=== PATIENT | male | born 1955 | race Caucasian/White ===

== ENCOUNTER 2017-12-29 08:15 | Inpatient (IN) | payer MEDICAID, OTHER ==
--- NOTE | 2017-12-29 08:38 | EDPHY ---
H & P Time Seen by Provider: 12/29/17 08:28 HPI/ROS: CHIEF COMPLAINT: Right calf pain HISTORY OF PRESENT ILLNESS: 62-year-old male with protein C deficiency and prior venous and arterial thromboembolism presents with right calf pain. Onset of right calf pain 1 week ago. The pain is moderate and constant and increases with ambulation. Associated with swelling of the right calf. Similar to prior DVT. No chest pain or shortness of breath. He stopped taking his Coumadin 6 weeks ago because he lost his Medicaid insurance. He has not followed up with his primary care physician, Dr. Seth Ram, at [facility]. REVIEW OF SYSTEMS: Constitutional: No fever, no chills Eyes: No visual changes ENT: No sore throat Respiratory: No cough, no shortness of breath Cardiac: No chest pain Gastrointestinal: no vomiting, no abdominal pain Genitourinary: no dysuria Skin: No rash Neurological: No headache, no weakness Psychiatric: No depression Past Medical/Surgical History: DVT/PE Protein C deficiency Social History: Homeless PCP: Dr. Ram Smoking Status: Never smoked Physical Exam: General Appearance: Alert, pleasant Eyes: Pupils equal and round, no conjunctival pallor ENT, Mouth: Mucous membranes moist Neck: Normal inspection Respiratory: Lungs are clear to auscultation Cardiovascular: Regular rate and rhythm Gastrointestinal: Abdomen is soft and nontender Neurological: A&O, nonfocal, antalgic gait Skin: Warm and dry, no rash Extremities: Right calf tenderness and swelling, distal half of lower leg is erythematous, foot is erythematous and somewhat mottled, 1st toe is dusky, capillary refill is 3-4 seconds, delayed Vascular: Unable to palpate pulses in right foot Psychiatric: Mood and affect normal Constitutional: Initial Vital Signs Temperature (C) 36.4 C 12/29/17 08:20 Heart Rate 85 12/29/17 08:20 Respiratory Rate 17 12/29/17 08:20 Blood Pressure 152/90 H 12/29/17 08:20 O2 Sat (%) 95 12/29/17 08:20 O2 Delivery Mode Room Air Allergies/Adverse Reactions: No Known Allergies Allergy (Verified 12/29/17 08:19) Home Medications: Medication Instructions Recorded Ferrous Sulfate [Ferrous Sulf 325 325 mg PO DAILY 12/29/17 MG (*)] Glucosamine Sulfate [Glucosamine 500 mg PO DAILY 12/29/17 Sulfate 500 MG (*)] Herbals/Supplements -Info Only 1 ea PO DAILY 12/29/17 Latanoprost 0.005% [Xalatan 0.005% 1 drops RTEYE HS 12/29/17 (*)] Brodnax-3 Fatty Acids [Fish Oil 1000 1,000 mg PO DAILY 12/29/17 mg (*)] Medical Decision Making - Diagnostics Imaging Results: Extremity Venous Study 12/29/17 08:29 Impression: 1. Right peripheral vascular disease with superficial femoral artery occlusion mid thigh. Consider vascular surgery consult and CT runoff of the abdomen and lower extremities. 2. Positive deep venous thrombosis involving the right femoral veins from the mid thigh through the popliteal and calf veins. Findings and recommendations discussed with Emergency Department physician, Fay Glover at 0920 hours, 12/29/2017. Final report concurs with initial preliminary interpretation. Aorta with runnoff CTA: RLE-occlusion of SFA, popliteal artery, and near occlusion of common iliac artery ED Course/Re-evaluation: This patient is at high risk for venous and arterial occlusion, given history of multiple DVTs in the past and off anticoagulation. Physical exam is concerning for acute arterial occlusion, given lack of pedal pulses and delayed capillary refill. Will initiate w/u with stat ultrasound of the right lower extremity ordered. Ultrasound results per Dr. Lopes reveal a DVT in the mid thigh as well as an occlusion of the superficial femoral artery. Heparin per weight based protocol initiated. Lower extremity CTA ordered. Dr. Mariah East was consulted and will see the patient. 10:30am: Dr. Sapp, interventional radiologist, was consulted. CTA reveals arterial occlusion, pt will go to IR for thrombolysis. The hospitalist service was consulted for admission to the ICU. Critical care time by me exclusive of unbundled procedures 45 minutes. Time spent in direct contact with pt, ordering tests and interpretation of test results, consultations. Organ at risk: right leg Differential Diagnosis: includes though not limited to DVT, arterial thrombus, cellulitis, abscess, necrotizing fasciitis - Data Points Laboratory Results: Laboratory Results 12/29/17 09:15 12/29/17 09:15 Medications Given: Ferrous Sulfate (Ferrous Sulfate) 325 mg PO DAILY LAYLA Stop: 06/28/18 08:59 Last Admin: 12/30/17 08:07 Dose: Not Given Heparin Sodium (Porcine) (Heparin Injection) 0 unit IVP PRN PRN; Protocol PRN Reason: Bolus per protocol Stop: 06/28/18 20:15 Last Admin: 12/31/17 03:48 Dose: 1,425 units Hydromorphone HCl (Dilaudid) 0.4 mg IVP Q2H PRN PRN Reason: Pain, Severe Unable to Take PO Stop: 01/08/18 19:55 Last Admin: 12/31/17 06:24 Dose: 0.4 mg Sodium Chloride (Ns) 1,000 mls @ 75 mls/hr IV CONT LAYLA Stop: 06/27/18 19:14 Last Admin: 12/30/17 14:20 Dose: 1,000 mls Dexmedetomidine HCl 400 mcg/ (Sodium Chloride) 104 mls @ 0 mls/hr IV CONT LAYLA; Per Protocol PRN Reason: Protocol Stop: 06/28/18 07:59 Last Admin: 12/31/17 05:51 Dose: 104 mls Heparin Sodium (Porcine) (Heparin 50 Units/Ml (Premix)) 500 mls @ 0 mls/hr IV CONT LAYLA; Per Protocol PRN Reason: Protocol Stop: 06/28/18 19:59 Last Admin: 12/30/17 20:54 Dose: 500 mls Latanoprost (Xalatan 0.005%) 1 drops RTEYE HS LAYLA Stop: 06/27/18 20:59 Last Admin: 12/31/17 03:25 Dose: Not Given Morphine Sulfate (Morphine) 3 - 5 mg IVP Q3HRS PRN PRN Reason: Pain, Severe Unable to Take PO Stop: 01/08/18 13:18 Last Admin: 12/30/17 17:14 Dose: 4 mg Dqzps-5-Wdun Ethyl Esters (Fish Oil) 1,000 mg PO DAILY LAYLA Stop: 06/28/18 08:59 Last Admin: 12/30/17 08:07 Dose: Not Given Discontinued Medications Fentanyl (Sublimaze) 0 mcg IVP ONCALL PRN PRN Reason: Per provider during procedure Stop: 12/29/17 14:52 Last Admin: 12/29/17 16:14 Dose: 225 mcg Fentanyl (Sublimaze) 0 mcg IVP ONCALL PRN PRN Reason: Per provider during procedure Stop: 12/30/17 13:01 Last Admin: 12/30/17 12:32 Dose: 100 mcg Heparin Sodium (Porcine) (Heparin Injection) 0 unit IVP EDNOW ONE PRN Reason: Protocol Stop: 12/29/17 09:33 Last Admin: 12/29/17 09:51 Dose: 5,700 units Heparin Sodium (Porcine) (Heparin Injection) 0 unit IVP ONCALL PRN PRN Reason: Per provider during procedure Stop: 12/30/17 13:01 Last Admin: 12/30/17 12:02 Dose: 5,000 units Heparin Sodium (Porcine) (Heparin Sc Injection) 5,000 unit IV ONCE ONE Stop: 12/30/17 14:01 Last Admin: 12/30/17 12:02 Dose: 5,000 unit Heparin Sodium (Porcine) (Heparin Injection) 0 unit IVP ONCE ONE PRN Reason: Protocol Stop: 12/30/17 19:57 Last Admin: 12/30/17 22:04 Dose: Not Given Hydromorphone HCl (Dilaudid) 0.4 mg IVP Q4HRS PRN PRN Reason: Pain, Severe Unable to Take PO Stop: 01/08/18 17:46 Last Admin: 12/29/17 18:09 Dose: 0.4 mg Hydromorphone HCl (Dilaudid) 1 mg IVP ONCE ONE Stop: 12/30/17 14:01 Last Admin: 12/30/17 12:30 Dose: 1 mg Hydromorphone HCl (Dilaudid) 2 mg IVP ONCE ONE Stop: 12/30/17 17:46 Last Admin: 12/30/17 20:37 Dose: Not Given Heparin Sodium (Porcine) (Heparin 50 Units/Ml (Premix)) 500 mls @ 0 mls/hr IV EDNOW ONE; Per Protocol PRN Reason: Protocol Stop: 12/29/17 09:33 Last Admin: 12/29/17 09:53 Dose: 500 mls Alteplase, Recombinant 5 mg/ (Sodium Chloride) 100 mls @ 0 mls/hr IV ONCALL ONE ; As Directed PRN Reason: Protocol Stop: 12/29/17 15:01 Last Admin: 12/29/17 16:16 Dose: 100 mls Alteplase, Recombinant 5 mg/ (Sodium Chloride) 100 mls @ 0 mls/hr IV CONT LAYLA; Per Protocol PRN Reason: Protocol Stop: 06/27/18 16:14 Last Admin: 12/30/17 01:02 Dose: 100 mls Dexmedetomidine/Sodium Chloride (Precedex 4 Mcg/Ml 50 Ml (Premix)) 50 mls @ 0 mls/hr IV CONT LAYLA; Titrate PRN Reason: Protocol Stop: 06/27/18 18:59 Last Admin: 12/30/17 01:57 Dose: 50 mls Cefazolin Sodium (Cefazolin Syringe) 2 gm in 20 mls @ 200 mls/hr IVP ONCALL ONE Stop: 12/30/17 11:05 Last Admin: 12/30/17 10:40 Dose: 20 mls Midazolam HCl (Versed) 0 mg IVP ONCALL PRN PRN Reason: Per provider during procedure Stop: 12/29/17 14:52 Last Admin: 12/29/17 16:13 Dose: 4.5 mg Midazolam HCl (Versed) 1 mg IVP ONCE ONE Stop: 12/30/17 17:46 Last Admin: 12/30/17 20:37 Dose: Not Given Promethazine HCl (Phenergan) 12.5 mg IVP ONCE ONE Stop: 12/30/17 17:46 Last Admin: 12/30/17 20:38 Dose: Not Given Departure - Departure Disposition: [facility] Acute Clinical Impression: Arterial occlusion, lower extremity DVT (deep venous thrombosis) Qualifiers: Laterality: right Qualified Code(s): I82.401 - Acute embolism and thrombosis of unspecified deep veins of right lower extremity Condition: Fair
[2017-12-29] MEDS ORDERED: HEPARIN/DEXTROSE 500 ML IV ONE (09:32)
[2017-12-29] MEDS ORDERED: HEPARIN 10,000 UNIT/10 ML MDV (1,000 UNIT/ML) IVP ONE (09:32)
[2017-12-29 09:42] LABS: PLATELET COUNT 246 10^3/uL (150-400)
[2017-12-29 09:55] LABS: PROTIME(PATIENT) 13.4 SEC (12.0-15.0)
--- NOTE | 2017-12-29 10:08 | ASMTCMCOM ---
CM Note CM Note Notes: Patient is a very pleasant, homeless gentleman admitted for DVT of RLL. He has been off his Coumadin for over 6 weeks and has not followed up with his PCP, Dr. Seth Ram since July. Patient tells me that he lost his Medicaid at that time due to receiving social security income. Patient has enrolled in health care through [employer] and tells me that his insurance with [employer] starts today, December 29. Patient has lived in [place] for the past 23 years, 3 of which he has been homeless. He has some familiarity with the [facility] for homeless services, but has not completed the coordinated entry program. He tells me that he is not seeking "[place] [facility] [place]" services, but is interested in more information I have contacted [facility] and for Dr. Ram re patient's admission. I discussed the coordinated entry program with the patient, including CM services and other community resources. Pamphlets and contact information provided at this time. Date Signed: 12/29/2017 10:08 AM Electronically Signed By:Yennifer Laurent RN
[2017-12-29] MEDS ORDERED: IOPAMIDOL (ISOVUE 370) 100 ML BTL IV ONE (10:17)
--- NOTE | 2017-12-29 11:17 | ASMTLACE ---
LACE Acuity / Level of Answers: Yes Care: Did the patient have an inpatient admission? Comorbidities - select Answers: Other Notes: coagulopathy all that apply # of Emergency department Answers: 1-2 visits in the last 6 months Social determinants Answers: Homelessness (street, senior living) Score: 8 Date Signed: 12/29/2017 11:16 AM Electronically Signed By:Yennifer Laurent RN
--- NOTE | 2017-12-29 12:13 | CPEKG ---
Heart Rate: 78 RR Interval: 769 P-R Interval: 164 QRSD Interval: 102 QT Interval: 408 QTC Interval: 465 P Camden: 79 QRS Camden: 74 T Wave Camden: 44 EKG Severity - NORMAL ECG - EKG Impression: SINUS RHYTHM Electronically Signed By: Fay Glover 29-Dec-2017 15:28:49
--- NOTE | 2017-12-29 13:05 | PDPROPOC ---
Sedation Plan of Care ASA Classification: ASA 3 Planned drugs: fentanyl, midazolam Mallampati Score: Class 2 Mallampati Reference Image: Patient passed 3-3-2 rule?: Yes
[2017-12-29] MEDS ORDERED: HEPARIN 10,000 UNIT/10 ML MDV (1,000 UNIT/ML) IVP PRN (13:52)
[2017-12-29] MEDS ORDERED: GLUCAGON HCL 1 MG VIAL IVP PRN (13:52)
[2017-12-29] MEDS ORDERED: FLUMAZENIL 0.5 MG/5 ML MDV IVP PRN (13:52)
[2017-12-29] MEDS ORDERED: ALTEPLASE 2 MG VIAL IVP PRN (13:52)
[2017-12-29] MEDS ORDERED: fentaNYL 100 MCG/2 ML INJ IVP PRN (13:52)
[2017-12-29] MEDS ORDERED: MIDAZOLAM 2 MG/2 ML VIAL IVP PRN (13:52)
[2017-12-29] MEDS ORDERED: NALOXONE HCL 0.4 MG/ML INJ IVP PRN (13:52)
[2017-12-29] MEDS ORDERED: MEPERIDINE 25 MG/ML SYR IVP PRN (13:52)
[2017-12-29] MEDS ORDERED: PROTAMINE SULFATE 50 MG/5 ML VIAL IVP PRN (13:52)
[2017-12-29] MEDS ORDERED: FLUMAZENIL 0.5 MG/5 ML MDV IVP ONE (13:58)
[2017-12-29] MEDS ORDERED: NALOXONE HCL 0.4 MG/ML INJ ONE (13:58)
[2017-12-29] MEDS ORDERED: fentaNYL 100 MCG/2 ML INJ ONE ×2 (13:58→15:35)
[2017-12-29] MEDS ORDERED: MIDAZOLAM 2 MG/2 ML VIAL ONE ×2 (13:58→15:35)
[2017-12-29] MEDS ORDERED: HEPARIN/DEXTROSE 25,000 UNIT/500 ML BAG ONE (14:18)
[2017-12-29] MEDS ORDERED: IOPAMIDOL (ISOVUE-300) 100 ML BTL ONE ×2 (14:56→16:34)
[2017-12-29] MEDS ORDERED: LIDOCAINE 1% 300 MG/30 ML SDV ONE (14:57)
[2017-12-29] MEDS ORDERED: ALTEPLASE 5 MG in NS 100 ML IV ONE (15:00)
--- NOTE | 2017-12-29 15:53 | SOAPPROG ---
MILAN Progress Note Assessment/Plan: Assessment: 62-year-old male with 5 days of right leg pain. Patient has hypercoagulable syndrome with protein C deficiency. He stopped his Coumadin therapy because the he lost his access to Medicine Presently has absent pedal pulses with a cool but viable foot. His right great toe is bluer then the rest and painful/left pedal pulses are intact CT shows right iliac clot and total occlusion of SFA from the mid thigh all the way down with no runoff being visible He is an limb with reddened state and will need a urgent thrombolysis and if unsuccessful as surgical thrombectomy. Will start heparinization until thrombolysis initiated His small vessels are completely occluded at this time so surgical options are somewhat limited but he may need fasciotomies if his blood flow was restored Risks and options including limb loss have been fully discussed the patient who understands the critical situation Plan: IR consultation for urgent thrombolysis 12/29/17 15:48 Objective: Vital Signs Temp Pulse Resp BP Pulse Ox 37.1 C 85 20 163/96 H 98 12/29/17 13:53 12/29/17 13:57 12/29/17 13:57 12/29/17 14:22 12/29/17 14:22 12/28/17 12/29/17 12/30/17 05:59 05:59 05:59 Output Total 150 Balance -150 PT 13.4 SEC (12.0-15.0) 12/29/17 09:15 INR 1.00 (0.83-1.16) 12/29/17 09:15 ICD10 Worksheet Patient Problems: Problems Problem Status Onset DVT (deep venous thrombosis) Acute Elevated INR Acute Pulmonary emboli Acute
[2017-12-29] MEDS ORDERED: PROMETHAZINE HCL 25 MG/ML INJ IVP PRN (16:15)
[2017-12-29] MEDS ORDERED: HEPARIN/DEXTROSE 500 ML IV SCH (16:15)
[2017-12-29] MEDS ORDERED: ONDANSETRON 4 MG/2 ML VIAL IVP PRN ×2 (16:15→19:08)
--- NOTE | 2017-12-29 17:30 | PDRADPN ---
Radiology Procedure Note Date of Procedure: 12/29/17 Radiologist: Charles Sapp Anesthesia: IV Sedation Pre-op Diagnosis: Rt common iliac clot, occluded distal Rt SFA, pop and runoff Post-op Diagnosis: Same Indication: Rt common iliac clot, occluded distal Rt SFA, pop and runoff Procedure: Pelvic and RLE angio, initiation of catheter-directed thrombolysis Finding(s): See dictated report Inf/Abcess present in the surg proc area at time of surgery?: No Complications: No immediate
[2017-12-29] MEDS ORDERED: HYDROmorphONE/DILAUDID 2 MG/ML INJ IVP PRN (17:47)
[2017-12-29] MEDS ORDERED: NS 500 ML IV PRN (18:51)
[2017-12-29] MEDS ORDERED: DEXMEDETOMIDINE/NS 4MCG/ML 50 ML BTL IV ONE (18:55)
--- NOTE | 2017-12-29 19:01 | PDGENHP ---
History and Physical History and Physical: CC: Right leg pain Note that I have seen this patient after he has come to the ICU from the Interventional Radiology laboratory where he has had catheter angiography of the right leg and is receiving tPA infusion with mechanical intervention ongoing. HISTORY: This patient with history of repeated thromboembolic episodes and history of protein C deficiency says he ran out of Coumadin a month or 2 ago and was unable to refill his prescription because of insurance issues. He is a homeless man and was in the middle of switching insurance so programs. He comes in today complaining of acute pain in his distal right leg and foot. There is no fever, no injury, no bleeding, no shortness of breath, no chest pain , no stroke-like symptoms, no palpitations. He says he was diagnosed with protein C deficiency at [facility] after his 1st DVT of the leg in 1995. He has been on anticoagulant since then with a couple of interruptions long way but has had multiple DVTs and PEs and 1 stroke. It is reported in records here that he has some cognitive deficit related to his stroke but he does not mention any specific deficit he is aware of. ROS: A comprehensive 10 system review revealed no other significant findings PAST MEDICAL HISTORY: Protein C deficiency Recurrent DVTs and PEs Stroke without any focal deficits Diverticulitis Alcohol abuse FAMILY MEDICAL HISTORY: He is unaware of specific family history SOCIAL HISTORY: Homeless living here [place] Denies tobacco or street drug use Admits to 3 beers per day but not on a daily basis sees physicians at [facility] [place] [facility] It sounds like he may have just gotten new insurance that started perhaps this month but I am unable to get a clear picture of the details from him at this time MEDICATIONS: The patients list has been reconciled by our clinical pharmacist in the EMR. I have reviewed the list and ordered appropriate medicines. PHYSICAL EXAMINATION: Vital Signs: Mildly hypertensive otherwise normal without fever Traveling Electrician: Sinus rhythm Examination: General: alert, severely anxious and agitated and looking quite uncomfortable although his response to pain seems quite remarkably out of proportion to his clinical syndrome in terms of yelling thrashing about in the bed despite repeated efforts on the part of the nursing staff and myself to get him to lie still as he has bilateral central lines in left and right groin with infusing tPA at this point and the intra-arterial mechanical device operating. Certainly not in line with what I am used to seeing from patient's who are having ischemic leg and receiving the procedures and treatments he is receiving. He mentions migrating sites of severe pain suggestive of possible reperfusion related pain Skin: Overall warm, dry, good color, no rash HEENT: normal Neck: no mass or jvd Resps: relaxed Lungs: clear breath sounds Heart: regular, no murmur Abdomen: soft, nondistended, nontender, +BS, no mass Upper Extremities: normal Lower Extremities: Currently has bilateral arterial lines in at the groins with no evidence of bleeding or complication at either site at the moment. His right leg below the knee is clearly ischemic but the color and temperature are improving compared to what I heard initially described in what the nurses saw earlier in the day. No mass or fluctuance or palpable fluid collection or evidence of bruising or bleeding or focal tenderness at the groin sites. No Bleeding or bruising Neurologic: normal speech/language, normal liquid sugar fortifier, no focal weakness with legs not tested for strength but he is moving both of them IV site: looks normal LABORATORY DATA: Unremarkable initial CBC, Chem panel, coagulation studies other than that his INR is normal RADIOLOGY STUDIES: I reviewed images from the patient's CT angiogram and ultrasound studies, he has a acute occlusion of the right SFA and also DVT in the right leg 12 LEAD EKG: Sinus rhythm with no acute ischemic or other concerning abnormalities ASSESSMENT: # acute ischemic right leg with acute right SFA occlusion # acute DVT of right leg # off anticoagulation with chronic protein C deficiency, apparently due to issues with insurance though the details of this are uncertain to me. At the moment hard to understand what his actual compliance abilities are # prior history of multiple DVTs and PEs in 1 stroke # homelessness # alcohol abuse currently stated by patient as 3 beers per day not on a daily basis PLANS: -continue thrombolytic infusion at this time -continue mechanical intra-arterial therapy at this time -further management of these treatments per Dr. East and Dr. Sapp -Pain Management: At this point the patient is not tolerating his discomfort well at all and in fact we are unable to keep him from writhing in the bed which is quite dangerous, so in addition to the currently administered narcotic and benzodiazepine medications I have ordered a Precedex drip. This is necessary to prevent arterial injury in both legs as well as dangers hemorrhage. -this is a month able to really get a convincing history of his alcohol use will give him some thiamin and will continue watch for any potential signs of alcohol withdrawal though it sounds like this may not be a problem -continue ICU care -monitor and treat blood pressure aggressively -follow renal function closely -will need to get him back on anticoagulation once we are done with all of his procedures and make sure that he has appropriate arrangements for getting his medication and his INR monitoring, and he will need to be bridged with a heparin to get his INR up -social work consult will be necessary I have reviewed the patient's case in detail with Dr. Bandar East and Charles Sapp I have reviewed the patient's past medical records as part of this assessment, including previous hospital admission records from this facility
[2017-12-29] MEDS ORDERED: ACETAMINOPHEN 325 MG TAB PO PRN (19:08)
[2017-12-29] MEDS ORDERED: ONDANSETRON DISINTEGRATING 4 MG TAB PO PRN (19:08)
[2017-12-29] MEDS ORDERED: NS 1,000 ML IV SCH (19:15)
--- NOTE | 2017-12-29 19:44 | PDMN ---
Medical Necessity Medical necessity: Patient meets inpatient criteria per physician note and MCG M -350 DVT of Lower Extremities (catheter-directed thrombolysis required for acute occlusion of R SFA and R common iliac clot; history of mult. thromboembolic episodes and protein C deficiency; unable to refill Coumadin in last 1-2 mos; anticipated LOS > 2 midnights for current therapy and Heparin IV bridge to p.o anticoagulation, ongoing ICU care including current Precedex IV gtt.)
[2017-12-29] MEDS: DEXMEDETOMIDINE IN 0.9 % NACL 50 ML IV SCH ×2 (20:03→21:30)
[2017-12-29] MEDS: HYDROmorphONE/DILAUDID 2 MG/ML INJ IVP PRN (20:04)
[2017-12-29] MEDS: LATANOPROST 0.005% 2.5 ML OPHT DROPS RTEYE SCH (23:00)
[2017-12-30] MEDS: ALTEPLASE 5 MG in NS 100 ML IV SCH ×2 (00:54→01:02)
[2017-12-30] MEDS: DEXMEDETOMIDINE IN 0.9 % NACL 50 ML IV SCH (01:57)
[2017-12-30 03:00] LABS: PLATELET COUNT 165 10^3/uL (150-400)
[2017-12-30] MEDS: HYDROmorphONE/DILAUDID 2 MG/ML INJ IVP PRN ×5 (03:01→16:27)
[2017-12-30] MEDS: FERROUS SULFATE 325 MG TAB PO SCH (08:07)
[2017-12-30] MEDS: OMEGA-3 FATTY ACIDS 1,000 MG CAP PO SCH (08:07)
[2017-12-30] MEDS: DEXMEDETOMIDINE HCL 400 MCG in NS 100 ML IV SCH ×2 (09:14→23:36)
--- NOTE | 2017-12-30 09:37 | HOSPPROG ---
Hospitalist Progress Note Assessment/Plan: DIAGNOSES: -acute ischemia to the right leg and foot with acute SFA occlusion -failure to resolve occlusion in ischemia with tPA infusion and EKOS, unable to continue tPA due to fibrinogen depletion -acute DVT of right leg -market agitation requiring significant sedation to protect his intra-arterial access -noncompliance with Coumadin therapy At this point he has failed attempt to manage this with tPA and EKOS. His foot is still cold and blue and he will require other measures to trying get flow back. We reviewed his case with Dr. Ocasio and she is going to take him back to the interventional lab to see if she is able do any mechanical thrombectomy. He will probably require a trip to the operating room to attempt to open outflow surgically. Will see how angiograms look after attempted IR thrombectomy. The patient through the night and again this morning is fairly agitated despite being very oriented. Is unclear to me if this is his usual manner of responding to a situation or if there is some other issue causing his agitation. He seems to have very reasonable pain control right now. He does seem to understand fairly clearly what his diagnosis and his treatment plans are. He may be quite in fear of his medical illness which would be appropriate. We have tried to be is reassuring with him as we can about his situation. Either way we are unable to get him to lie still very well and he did require Precedex drip overnight for protection of his artery sites, in addition to the narcotic an Ativan he was being given to try and manage his pain and anxiety. At this point we have him more awake and a he still is unable to comply with lying still. PLANS: -back to Interventional Radiology lab today for attempted mechanical thrombectomy, with angiography -suspect he will need to go to the OR today to try an open flow to save his foot -sedation with Precedex as needed to protect his arterial sites -continue pain management -eventually will need a lot of help from social workers to and pharmacy staff to be sure that we have him set up with ongoing supply of Coumadin, and with compliance of taking that and getting his INRs tested SUBJECTIVE: Still with quite a bit of pain in his right foot No other acute symptoms OBJECTIVE Vitals reviewed: Stable without fever Metal Sprayer, my review: Sinus rhythm Exam: alert oriented anxious and agitated skin warm dry color ok resps not labored lungs clear BSs heart regular abd soft nondistended nontender, bowel sounds present limbs he has much better warmth and color of the right leg down to the mid calf , but from the mid calf down to the tip of the toes he is cold blue and pulseless with decreased sensation iv site ok Laboratory data: Fibrinogen has remained at 60 or less through the night and morning Only a minimal drop in hemoglobin Other lab stable this morning Objective: Vital Signs Temp Pulse Resp BP Pulse Ox 36.7 C 53 L 14 105/68 100 12/29/17 17:01 12/30/17 08:00 12/30/17 08:00 12/30/17 08:00 12/30/17 08:00 Laboratory Results 12/30/17 02:56 12/30/17 02:56 12/29/17 12/30/17 12/31/17 06:59 06:59 06:59 Intake Total 2954 Output Total 950 Balance 2003 PT 13.4 SEC (12.0-15.0) 12/29/17 09:15 INR 1.00 (0.83-1.16) 12/29/17 09:15 ICD10 Worksheet Patient Problems: Problems Problem Status Onset DVT (deep venous thrombosis) Acute Elevated INR Acute Pulmonary emboli Acute
[2017-12-30] MEDS ORDERED: fentaNYL 100 MCG/2 ML INJ ONE (10:15)
[2017-12-30] MEDS ORDERED: ceFAZolin 2 GM/SWFI 20 ML SYR IVP ONE ×2 (10:35→10:47)
[2017-12-30] MEDS ORDERED: IOPAMIDOL (ISOVUE-300) 100 ML BTL ONE ×6 (10:53→18:59)
[2017-12-30] MEDS ORDERED: ceFAZolin 2 GM/SWFI 2 GM/20 ML SYR IVP ONE (11:00)
--- NOTE | 2017-12-30 11:54 | ASMTCMCOM ---
CM Note CM Note Notes: Patient's foot is worse today so he is going for a mechanical evacutation but will most likely need to go back to the OR per Dr. East. Dr. Ceja requests assist with making sure patient has an ongoing supply of coumadin, getting his INR's tested and having a Dr he is following up with at d/c. Patient has been agitated and anxious most likely due to being in fear of his medical illness. Plan to meet with patient when he is more medically stable to begin making these d/c arrangements. CM will follow. Date Signed: 12/30/2017 11:53 AM Electronically Signed By:Rosa Mar LCSW
[2017-12-30] MEDS ORDERED: ALTEPLASE 2 MG VIAL IVP PRN (11:58)
[2017-12-30] MEDS ORDERED: fentaNYL 100 MCG/2 ML INJ IVP PRN (11:58)
[2017-12-30] MEDS ORDERED: GLUCAGON HCL 1 MG VIAL IVP PRN (11:58)
[2017-12-30] MEDS ORDERED: NALOXONE HCL 0.4 MG/ML INJ IVP PRN (11:58)
[2017-12-30] MEDS ORDERED: MEPERIDINE 25 MG/ML SYR IVP PRN (11:58)
[2017-12-30] MEDS ORDERED: HEPARIN 10,000 UNIT/10 ML MDV (1,000 UNIT/ML) IVP PRN (11:58)
[2017-12-30] MEDS ORDERED: PROTAMINE SULFATE 50 MG/5 ML VIAL IVP PRN (11:58)
[2017-12-30] MEDS ORDERED: FLUMAZENIL 0.5 MG/5 ML MDV IVP PRN (11:58)
[2017-12-30] MEDS ORDERED: MIDAZOLAM 2 MG/2 ML VIAL IVP PRN (11:58)
[2017-12-30] MEDS ORDERED: HEPARIN 10,000 UNIT/10 ML MDV (1,000 UNIT/ML) ONE (11:59)
--- NOTE | 2017-12-30 13:35 | PDRADPN ---
Radiology Procedure Note Date of Procedure: 12/30/17 Radiologist: Yuly Ocasio Anesthesia: IV Sedation Pre-op Diagnosis: RLE CLOT Post-op Diagnosis: SAME Indication: THREATENED LIMB Procedure: MECHANICAL CLOT DEBULKING; IDENTITY MANAGEMENT DEVELOPER, STENT, TPA LYSIS Finding(s): STENTED RT CIV FOR CHRONIC SCAR; IDENTITY MANAGEMENT DEVELOPER RT SFA FOR PLAQUE; MECHANICAL CLOT SUCTIONING THROUGHOUT SFA, POP, AND PT. NOW WITH ANTEGRADE RUNOFF VIA DP AND MOST OF PT. RESIDUAL SHORT SEGMENT CLOT AT ANKLE PT. TPA LYSIS TO CONTINUE. Inf/Abcess present in the surg proc area at time of surgery?: No EBL: 100-500 (400CC VIA PENUMBRA DECLOT SUCTIONING DEVICE) Complications: NONE
[2017-12-30] MEDS ORDERED: ALTEPLASE 5 MG in NS 100 ML IV SCH (13:45)
[2017-12-30] MEDS ORDERED: HEPARIN/DEXTROSE 500 ML IV SCH (13:45)
[2017-12-30] MEDS ORDERED: HEPARIN 5,000 UNIT/0.5 ML SYR IV ONE (14:00)
[2017-12-30] MEDS ORDERED: HYDROmorphONE/DILAUDID 1 MG/ML INJ IVP ONE (14:00)
[2017-12-30] MEDS ORDERED: PROMETHAZINE HCL 25 MG/ML INJ IVP ONE (17:45)
[2017-12-30] MEDS ORDERED: MIDAZOLAM 2 MG/2 ML VIAL IVP ONE (17:45)
[2017-12-30] MEDS ORDERED: HYDROmorphONE/DILAUDID 2 MG/ML INJ IVP ONE (17:45)
[2017-12-30] MEDS ORDERED: LIDOCAINE 1% 300 MG/30 ML SDV ONE (18:03)
[2017-12-30] MEDS ORDERED: MIDAZOLAM 2 MG/2 ML VIAL ONE ×2 (18:04→18:16)
--- NOTE | 2017-12-30 18:08 | SOAPPROG ---
MILAN Progress Note Assessment/Plan: Assessment: 62-year-old male with 5 days of right leg pain. Patient has hypercoagulable syndrome with protein C deficiency. He stopped his Coumadin therapy because the he lost his access to Medicine Presently has absent pedal pulses with a cool but viable foot. His right great toe is bluer then the rest and painful/left pedal pulses are intact CT shows right iliac clot and total occlusion of SFA from the mid thigh all the way down with no runoff being visible He is an limb with reddened state and will need a urgent thrombolysis and if unsuccessful as surgical thrombectomy. Will start heparinization until thrombolysis initiated His small vessels are completely occluded at this time so surgical options are somewhat limited but he may need fasciotomies if his blood flow was restored Risks and options including limb loss have been fully discussed the patient who understands the critical situation Plan: IR consultation for urgent thrombolysis 12/29/17 15:48 12/30/17 18:07 PATIENT STILL UNDERGOING THROMBOLYSIS BUT HAS HAD A DRAMATIC IMPROVEMENT IN THE BLOOD FLOW TO THE LEG INCLUDING ILIAC STENT. SFA IS OPENED UP THROUGH THE POPLITEAL WITH A SINGLE-VESSEL RUNOFF AND THE FOOT IS MUCH WARMER. WILL CONTINUE HEPARIN AND THROMBOLYSIS AND HOPES THAT WE CAN SAVE HIS LEG AND TOES. HE HAD RATHER POOR RESULTS FROM TPA INFUSION OVER NIGHT WITH BIG DROP IN HIS FIBRINOGEN LEVEL Objective: Vital Signs Temp Pulse Resp BP Pulse Ox 36.7 C 71 25 H 145/92 H 98 12/30/17 14:00 12/30/17 17:04 12/30/17 17:04 12/30/17 17:55 12/30/17 17:55 Laboratory Results 12/30/17 02:56 12/30/17 02:56 12/29/17 12/30/17 12/31/17 05:59 05:59 05:59 Intake Total 2954 Output Total 950 Balance 2003 PT 13.4 SEC (12.0-15.0) 12/29/17 09:15 INR 1.00 (0.83-1.16) 12/29/17 09:15 ICD10 Worksheet Patient Problems: Problems Problem Status Onset DVT (deep venous thrombosis) Acute Elevated INR Acute Pulmonary emboli Acute
[2017-12-30] MEDS ORDERED: HEPARIN 10,000 UNIT/10 ML MDV (1,000 UNIT/ML) IVP ONE (19:56)
--- NOTE | 2017-12-30 20:00 | PDRADPN ---
Radiology Procedure Note Date of Procedure: 12/30/17 Radiologist: Yuly Ocasio Anesthesia: IV Sedation Pre-op Diagnosis: RLE LIMB ISCHEMIA Post-op Diagnosis: SAME Indication: CONTINUED TPA CHECK Procedure: ANGIOGRAM, SFA STENT, DOCTOR ASSISTANT Finding(s): VERY SLOW RUNOFF. PATIENT TO POP ARTERY Inf/Abcess present in the surg proc area at time of surgery?: No Complications: RT GROIN HEMATOMA. CLOSURE DEVICE DID NOT WORK.
[2017-12-30 20:41] LABS: PLATELET COUNT 146 10^3/uL (150-400)
[2017-12-30 20:52] LABS: INR 1.46 (0.83-1.16); PROTIME(PATIENT) 17.9 SEC (12.0-15.0)
[2017-12-30] MEDS: HEPARIN/DEXTROSE 500 ML IV SCH (20:54)
[2017-12-31] MEDS: LATANOPROST 0.005% 2.5 ML OPHT DROPS RTEYE SCH ×2 (03:25→20:12)
[2017-12-31] MEDS: HEPARIN 10,000 UNIT/10 ML MDV (1,000 UNIT/ML) IVP PRN (03:48)
[2017-12-31] MEDS: DEXMEDETOMIDINE HCL 400 MCG in NS 100 ML IV SCH (05:51)
[2017-12-31] MEDS: HYDROmorphONE/DILAUDID 2 MG/ML INJ IVP PRN ×5 (06:24→23:15)
--- NOTE | 2017-12-31 09:01 | SOAPPROG ---
SOAP Progress Note Assessment/Plan: Assessment/Plan: 62yo M c hypercoag c acute RLE ischemia - per report, lysis able to open to popliteal which is palpable. No appreciable distal runoff to this - comparing exam this AM to last night, the R lower leg is actually warmer than it was, still no appreciable flow in the foot but feels warmer and motor appears better as well. Has palp popliteal pulse on R - fem stop in place, will take down this AM. - cont full heparinization. - no bypass targets in RLE currently. 12/31/17 08:59 Subjective: denies RLE pain. Objective: Vital Signs Temp Pulse Resp BP Pulse Ox 36.7 C 60 17 105/47 L 100 12/30/17 14:00 12/31/17 06:00 12/31/17 06:00 12/31/17 06:00 12/31/17 06:00 Laboratory Results 12/31/17 04:00 12/31/17 04:00 12/30/17 12/31/17 01/01/18 05:59 05:59 05:59 Intake Total 2954 3678 Output Total 950 1500 Balance 2003 2178 PT 17.9 SEC (12.0-15.0) H 12/30/17 20:30 INR 1.46 (0.83-1.16) H 12/30/17 20:30 ICD10 Worksheet Patient Problems: Problems Problem Status Onset Arterial occlusion, lower extremity Acute DVT (deep venous thrombosis) Acute Elevated INR Acute Pulmonary emboli Acute
--- NOTE | 2017-12-31 10:00 | HOSPPROG ---
Hospitalist Progress Note Assessment/Plan: # acute ischemia to the right leg and foot with acute SFA occlusion - failure to resolve occlusion with tPA infusion and EKOS, unable to continue tPA due to fibrinogen depletion -s/p stent by IR yesterday - foot now warm, but still no DP or PT pulse by doppler -cont heparin -plan to d/c on plavix # acute DVT of right leg -heparin as above # agitation - required significant sedation to protect his intra-arterial access -wean precedex # noncompliance with Coumadin therapy Full code Subjective: Pt doing ok, c/o pain in RLE. No CP or SOB. Taking po. Objective: Vital Signs Temp Pulse Resp BP Pulse Ox 36.7 C 60 17 105/47 L 100 12/30/17 14:00 12/31/17 06:00 12/31/17 06:00 12/31/17 06:00 12/31/17 06:00 Laboratory Results 12/31/17 04:00 12/31/17 04:00 12/30/17 12/31/17 01/01/18 05:59 05:59 05:59 Intake Total 2954 3678 Output Total 950 1500 Balance 2003 2178 PT 17.9 SEC (12.0-15.0) H 12/30/17 20:30 INR 1.46 (0.83-1.16) H 12/30/17 20:30 - Physical Exam Constitutional: no apparent distress Eyes: PERRL Ears, Nose, Mouth, Throat: moist mucous membranes Cardiovascular: regular rate and rhythym Respiratory: no respiratory distress Gastrointestinal: normoactive bowel sounds, soft, non-tender abdomen Skin: warm Musculoskeletal: full muscle strength Neurologic: AAOx3 Psychiatric: interacting appropriately ICD10 Worksheet Patient Problems: Problems Problem Status Onset Arterial occlusion, lower extremity Acute DVT (deep venous thrombosis) Acute Elevated INR Acute Pulmonary emboli Acute
--- NOTE | 2017-12-31 15:32 | SOAPPROG ---
SOAP Progress Note Assessment/Plan: Assessment: RT foot better than yesterday, but cold toes. RT femoral and pop pulses stable. LT femoral sheath removed. Plan: 1. Fem stop to LT groin today. bed rest today. 2. Restarting heparin at wt based rate. 3. Foot management otherwise per surgery. 4. Starting plavix tomorrow for stents. Need to be D/Vlad with 90 day plavix. Would recommend that patient stays on at least full ASA for life if not plavix for stents. 12/31/17 15:30 Subjective: Much more awake today. No complaints. Objective: Vital Signs Temp Pulse Resp BP Pulse Ox 36.7 C 62 14 115/69 100 12/31/17 12:00 12/31/17 12:00 12/31/17 12:00 12/31/17 12:00 12/31/17 12:00 Laboratory Results 12/31/17 04:00 12/31/17 04:00 12/30/17 12/31/17 01/01/18 05:59 05:59 05:59 Intake Total 2954 3678 Output Total 950 1500 Balance 2003 2178 PT 17.9 SEC (12.0-15.0) H 12/30/17 20:30 INR 1.46 (0.83-1.16) H 12/30/17 20:30 RT groin with bruising, no significant bulging hematoma. LT groin sheath removed and fem stop applied. RT foot dorsal aspect proximally with better perfusion than yesterday. Toes cold. ICD10 Worksheet Patient Problems: Problems Problem Status Onset Arterial occlusion, lower extremity Acute DVT (deep venous thrombosis) Acute Elevated INR Acute Pulmonary emboli Acute
[2017-12-31] MEDS ORDERED: LIDOCAINE 1% 300 MG/30 ML SDV ONE (15:34)
--- NOTE | 2017-12-31 16:18 | GCON ---
[f rep st] CONSULTATION PULMONARY/CRITICAL CARE CONSULTATION DATE OF CONSULTATION: 12/31/2017 REFERRING PHYSICIAN: Xiao Nguyen MD REASON FOR REFERRAL: Evaluation and management of DVT. HISTORY: The patient is a 62-year-old male who has a history of protein C deficiency, who recently s topped taking his Coumadin. He was admitted 2 days ago with acute pain in his distal right leg and f oot. He denies any recent injury to the leg. He came in and was found to have a superficial femoral artery occlusion in the mid thigh, as well as a DVT in the right femoral veins extending down to the calf veins. He was taken to the interventional suite, where a left femoral access was obtained and a lysis catheter was placed in the right femoral artery. Unfortunately, the patient developed a low fibrinogen level and the tPA infusion had to be stopped without resolution of the arterial thrombosis . Subsequently, the patient underwent catheter embolization and stent placement. Patency of the pop liteal artery was obtained, but there was slow distal runoff. The patient currently reports that he has pain that migrates around his right foot, but not above that. He denies any other symptoms. PAST MEDICAL HISTORY: 1. Protein C deficiency; this was diagnosed at the [facility] after his 1st DVT in 1995. He has kearns d a couple of interruptions and anticoagulation, and has had multiple DVTs, PEs, and a stroke. He st opped Coumadin about 2 months ago. 2. Diverticulitis. 3. History of alcohol abuse. MEDICATIONS: At the time of admission include fish oil, iron. ALLERGIES: None. SOCIAL HISTORY: The patient is homeless, lives in [place]. He drinks about 3 beers a day, but not e very day. He denies tobacco. FAMILY HISTORY: Unremarkable. REVIEW OF SYSTEMS: A 10-point review of systems adds nothing to the History of Present Illness. PHYSICAL EXAMINATION: GENERAL: The patient is awake, alert, in no acute distress, lying in bed. CONCHITA SIGNS: Blood pressure is 115/69, with heart rate of 62, he is afebrile, oxygen saturations are 1 00% on 1 L. HEENT: Normocephalic and atraumatic, no icterus. NECK: No adenopathy. Trachea is mid line. CHEST: Clear to auscultation. CARDIAC: Regular rate and rhythm without murmur. ABDOMEN: S oft, nontender. Bowel sounds are present. EXTREMITIES: His right foot has pallor and is somewhat c ool. There are no palpable pulses. He has some darkness in the tips of his toes, but no addie necro sis. He is able to move his toes. The left foot has good pulses. He has a Femstop on both groins. NEURO: The patient is awake and oriented x3. No gross motor or sensory deficits. LABORATORY: Chemistry group is unremarkable. Hemoglobin is 11.0. Heparin activity level is 0.35. ASSESSMENT: 1. Right deep venous thrombosis. The patient has a fairly extensive deep venous thrombosis. His le g is more threatened by an arterial thrombosis in the same leg. He has been treated with intra-arter ial tPA, which likely will have some mild systemic effect on the deep venous thrombosis, and also he is now on heparin, which should be adequate therapy for this. Further therapy for the patient's teressa rial thrombosis and protein-C deficiency should be adequate to treat the deep venous thrombosis. 2. Protein C deficiency. This was previously diagnosed. 3. Arterial thrombosis of this superficial femoral artery. This has been treated with tPA and then with embolectomy and stenting. He has improved flow to the leg, although the foot remains ischemic. 4. History of alcohol use. RECOMMENDATIONS: 1. Continue heparin. 2. The patient can be transitioned to Coumadin or an oral anticoagulant agent once he is more stable . He will need ongoing evaluation for his foot to determine viability. /[id number]/MODL
[2017-12-31] MEDS: OMEGA-3 FATTY ACIDS 1,000 MG CAP PO SCH (16:43)
[2017-12-31] MEDS: FERROUS SULFATE 325 MG TAB PO SCH (16:43)
[2018-01-01] MEDS: HYDROmorphONE/DILAUDID 2 MG/ML INJ IVP PRN ×2 (05:50→09:31)
[2018-01-01] MEDS: DEXMEDETOMIDINE HCL 400 MCG in NS 100 ML IV SCH (05:51)
[2018-01-01] MEDS: OMEGA-3 FATTY ACIDS 1,000 MG CAP PO SCH (09:31)
[2018-01-01] MEDS: FERROUS SULFATE 325 MG TAB PO SCH (09:31)
[2018-01-01] MEDS: HEPARIN/DEXTROSE 500 ML IV SCH (11:06)
[2018-01-01] MEDS ORDERED: BISACODYL 10 MG SUPP PR PRN (12:04)
[2018-01-01] MEDS ORDERED: MAGNESIUM HYDROXIDE 30 ML UDCUP PO PRN (12:04)
[2018-01-01] MEDS ORDERED: LACTULOSE 20 GM/30 ML UDCUP PO PRN (12:04)
[2018-01-01] MEDS: oxyCODONE IR 5 MG TAB PO PRN ×3 (12:44→20:49)
--- NOTE | 2018-01-01 12:59 | HOSPPROG ---
Hospitalist Progress Note Assessment/Plan: # acute ischemia to the right leg and foot with acute SFA occlusion - failure to resolve occlusion with tPA infusion and EKOS, unable to continue tPA due to fibrinogen depletion -s/p stent by IR / - foot remains sub-optimally perfused with mottling and dusky toes today -cont heparin -discussed with Dr. East, will likely need bypass surgery this hospitalization and eventually d/c with anti-coagulation (?coumadin vs eliquis) plus plavix -pain control # acute DVT of right leg -heparin as above # agitation - required significant sedation to protect his intra-arterial access -wean precedex # noncompliance with Coumadin therapy Full code Dispo - cont inpt / ICU, ADD uncertain Subjective: Pt doing ok. Needs better pain control. Wants definitive bypass surgery. Objective: Vital Signs Temp Pulse Resp BP Pulse Ox 36.9 C 81 19 125/84 H 100 01/01/18 08:00 01/01/18 10:00 01/01/18 10:00 01/01/18 10:00 01/01/18 10:00 Laboratory Results 01/01/18 03:30 12/31/17 04:00 12/31/17 01/01/18 01/02/18 05:59 05:59 05:59 Intake Total 3678 3439 Output Total 1500 4450 Balance 2178 -1011 PT 17.9 SEC (12.0-15.0) H 12/30/17 20:30 INR 1.46 (0.83-1.16) H 12/30/17 20:30 - Physical Exam Constitutional: no apparent distress Eyes: PERRL Ears, Nose, Mouth, Throat: moist mucous membranes Cardiovascular: regular rate and rhythym Respiratory: no respiratory distress Gastrointestinal: normoactive bowel sounds, soft, non-tender abdomen Skin: other (RLE with mottling of foot and dusky toes, though mostly warm to touch) Neurologic: AAOx3 Psychiatric: interacting appropriately ICD10 Worksheet Patient Problems: Problems Problem Status Onset Arterial occlusion, lower extremity Acute DVT (deep venous thrombosis) Acute Elevated INR Acute Pulmonary emboli Acute
--- NOTE | 2018-01-01 14:26 | GCON ---
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 The patient has a hypercoagulable history with protein C abnormality. He has been on Coumadin but ran out and did not renew his Coumadin. Present symptoms have been present for over 5 days. His foot is cool but still viable but creates a significant amount of pain. His r ight great toe seems to be somewhat blue as well. The CTA was done which shows a significant right i liac thrombus or embolus and then occlusion of the SFA and all the runoff in the leg from the midthig h down with some collateral circulation. He had a previous angiogram 3 years ago, which did not reve al the iliac lesions, but the runoff was inadequate to evaluate the infrapopliteal circulation on dilan t angiogram. PAST MEDICAL HISTORY: Includes multiple DVT episodes and a pulmonary embolus. He has a protein-C de ficiency. He has had a previous CVA with no focal deficits. He does drink, and he has had diverticu litis. FAMILY HISTORY: Noncontributory. REVIEW OF SYSTEMS: No other major problems on a full 10-point review of systems. Specifically, he d oes not smoke currently. PHYSICAL EXAMINATION: GENERAL: An alert, talkative 62-year-old male who is in some discomfort. HEA D AND NECK: No icterus. No adenopathy. No oral lesions. No bruits. Neck is supple, nontender, wi thout thyromegaly. CHEST: Clear and symmetric. COR: Regular rhythm without murmurs. ABDOMEN: So ft and nontender without bruits or hernias. GENITALIA: Normal. EXTREMITIES: Good pedal pulses on the left, absent pedal pulses on the right ,with coolness to the right foot and very sluggish capilla ry filling. He has motor and sensation intact in that foot. His popliteal pulse is also absent, but he does have a weak femoral pulse, particularly compared to the left side. NEUROLOGIC: Physiologic . SKIN: No rashes or lesions or skin breakdown. IMPRESSION: Subacute ischemia of the right leg which is threatened. I do not know if this is emboli c in nature or if this is atherosclerotic plaques. However, his left side with circulation, and his vessels overall look quite nice except for the occlusion. It should be noted that he also has a DVT on his ultrasound of his right leg. Would recommend heparin therapy and immediate thrombolysis if po ssible and, if not possible, then limb salvage surgery may be necessary. Risks and options have been fully discussed with the patient, including limb loss. He understands and wishes to be cooperative and proceed. /[id number]/MODL
[2018-01-01] MEDS: LATANOPROST 0.005% 2.5 ML OPHT DROPS RTEYE SCH (20:42)
[2018-01-01] MEDS: SENNOSIDES/DOCUSATE SODIUM TAB PO SCH (20:48)
[2018-01-01] MEDS: ZOLPIDEM TARTRATE 5 MG TAB PO PRN (20:49)
[2018-01-02] MEDS: SENNOSIDES/DOCUSATE SODIUM TAB PO SCH ×2 (08:20→20:50)
[2018-01-02] MEDS: FERROUS SULFATE 325 MG TAB PO SCH (08:21)
[2018-01-02] MEDS: oxyCODONE IR 5 MG TAB PO PRN ×4 (08:21→22:33)
[2018-01-02] MEDS: OMEGA-3 FATTY ACIDS 1,000 MG CAP PO SCH (08:21)
[2018-01-02] MEDS ORDERED: LIDOCAINE 1% 300 MG/30 ML SDV ONE (08:40)
--- NOTE | 2018-01-02 09:10 | SOAPPROG ---
MILAN Progress Note Assessment/Plan: Assessment: 62-year-old male with 5 days of right leg pain. Patient has hypercoagulable syndrome with protein C deficiency. He stopped his Coumadin therapy because the he lost his access to Medicine Presently has absent pedal pulses with a cool but viable foot. His right great toe is bluer then the rest and painful/left pedal pulses are intact CT shows right iliac clot and total occlusion of SFA from the mid thigh all the way down with no runoff being visible He is an limb with reddened state and will need a urgent thrombolysis and if unsuccessful as surgical thrombectomy. Will start heparinization until thrombolysis initiated His small vessels are completely occluded at this time so surgical options are somewhat limited but he may need fasciotomies if his blood flow was restored Risks and options including limb loss have been fully discussed the patient who understands the critical situation Plan: IR consultation for urgent thrombolysis 12/29/17 15:48 12/30/17 18:07 PATIENT STILL UNDERGOING THROMBOLYSIS BUT HAS HAD A DRAMATIC IMPROVEMENT IN THE BLOOD FLOW TO THE LEG INCLUDING ILIAC STENT. SFA IS OPENED UP THROUGH THE POPLITEAL WITH A SINGLE-VESSEL RUNOFF AND THE FOOT IS MUCH WARMER. WILL CONTINUE HEPARIN AND THROMBOLYSIS AND HOPES THAT WE CAN SAVE HIS LEG AND TOES. HE HAD RATHER POOR RESULTS FROM TPA INFUSION OVER NIGHT WITH BIG DROP IN HIS FIBRINOGEN LEVEL 01/02/18 09:06 rt foot still cool and painful, no doppler pulses, +pop pulse/ +sensation and motor function in toes but rest pain/ potential for limb loss if not improving plan cta to eval for fem-tib bypassfor limb salvage/ continue heparin Objective: Vital Signs Temp Pulse Resp BP Pulse Ox 37.3 C 73 16 131/82 H 93 01/02/18 07:19 01/02/18 07:19 01/02/18 07:19 01/02/18 07:19 01/02/18 07:19 Laboratory Results 01/02/18 05:39 12/31/17 04:00 01/01/18 01/02/18 01/03/18 05:59 05:59 05:59 Intake Total 3439 1680 Output Total 4450 850 Balance -1011 830 PT 17.9 SEC (12.0-15.0) H 12/30/17 20:30 INR 1.46 (0.83-1.16) H 12/30/17 20:30 ICD10 Worksheet Patient Problems: Problems Problem Status Onset Arterial occlusion, lower extremity Acute DVT (deep venous thrombosis) Acute Elevated INR Acute Pulmonary emboli Acute
[2018-01-02] MEDS: HYDROmorphONE/DILAUDID 2 MG/ML INJ IVP PRN ×2 (09:13→13:44)
--- NOTE | 2018-01-02 13:01 | ASMTCMCOM ---
CM Note CM Note Notes: Chart reviewed, Per surgery his lower extremity viability is still threatened. Met with patient who reveals he is homeless and attempted to secure housing in 2016 to no avail. He does not stay at skilled nursing and will not disclose where he stays but he is unable to keep warm. He will need placement if he requires surgery and needs follow up. Will ask Complex care to assist with this complex patient CM to follow. Date Signed: 01/02/2018 01:00 PM Electronically Signed By:Jessie Cee RN
[2018-01-02] MEDS: POLYETHYLENE GLYCOL 3350 17 GM PKT PO PRN ×2 (15:13→20:48)
[2018-01-02] MEDS: HEPARIN/DEXTROSE 500 ML IV SCH (15:13)
[2018-01-02] MEDS ORDERED: IOPAMIDOL (ISOVUE 370) 100 ML BTL IV ONE (15:33)
--- NOTE | 2018-01-02 15:37 | ECHO ---
[email or web address] [address] Main: [phone] Fax: Transthoracic Echocardiogram Name: ABBI MAYA MR#: [id number] Study Date: 01/02/2018 Study Time: 09:16 AM Date of : 1955 Age: 62 year(s) Height: 185.4 cm (73 in.) Weight: 95.26 kg (210 lb.) BSA: 2.2 m2 Gender: Male Examination: Echo Indication: evaluate for clots Image Quality: Technically Difficult Contrast: Requested by: Alejandra Sy BP: 131 mmHg/82 mmHg Heart Rate: Rhythm: Normal sinus rhythm Indication: evaluate for clots Procedure Staff Knife Edger: Lydia Post [facility] Reading Physician: Jose Elias Coleman MD Requesting Provider: Conclusions: Normal size left ventricle. No LV hypertrophy. Normal global systolic LV function. EF is 65 %. No regional wall motion abnormality. Normal diastolic LV function. Normal size right ventricle. The left atrium is normal in size. The right atrium is normal in size. The mitral valve is normal in appearance and function. Trivial mitral valve regurgitation. The aortic valve is tri-leaflet and functions normally. There is no aortic valve regurgitation. The tricuspid valve is normal in appearance and function. Trivial to mild tricuspid valve regurgitation. Borderline elevated pumonary artery pressure. There is no pulmonic regurgitation seen. Normal size aortic root measuring 3.3 cm. Measurements: Chambers Valvular Assessment AV/MV Valvular Assessment TV/PV Normal Normal Normal Name Value Range Name Value Range Name Value Range Ao Fatou (MM): 3.3 cm (2.2 cm-3.7 AV Vmax: 1.37 m/s (1 m/s-1.7 TR Vmax: 2.61 mm/s ( - ) cm) m/s) TR PGmax: 27 mmHg ( - ) IVSd (2D): 0.9 cm (0.6 cm-1.1 AV maxP mmHg ( - ) syst. PAP: 37 mmHg ( - ) cm) LVOT Vmax: 0.99 m/s (0.7 m/s-1.1 PV Vmax: 1.10 m/s (0.6 m/s-0.9 LVDd (2D): 4.3 cm (4.2 cm-5.9 m/s) m/s) cm) MV E Vmax: 0.81 m/s ( - ) PV PGmax: 5 mmHg ( - ) MV A Vmax: 0.53 m/s ( - ) Patient: ABBI MAYA Study Date: 01/02/2018 Page 1 of 2 09:16 AM LVDs (2D): 3.0 cm (2.1 cm-4 MV E/A: 1.53 ( - ) cm) LVPWd (2D): 0.7 cm (0.6 cm-1 cm) LVEF (BP): 65 % (>=55 %) RVDd(2D): 4.0 cm (1.9 cm-3.8 cmmm) Continued Measurements: Chambers Valvular Assessment AV/MV Valvular Assessment TV/PV Name Value Name Value Name Value LADs: 2.9 cm MV DecTime: 215 m/s CVP (est.): 10 mmHg LADs Lon.1 cm MV E/E' Septal: 7.50 LA Area: 17.7 cm2 MV E/E' Lateral: 6.00 LA Volume: 65 ml LA Volume Index: 29.5 ml/m2 Findings: Left Ventricle: Normal size left ventricle. No LV hypertrophy. Normal global systolic LV function. EF is 65 %. No regional wall motion abnormality. Normal diastolic LV function. Right Ventricle: Normal size right ventricle. Normal RV function. Left Atrium: The left atrium is normal in size. Right Atrium: The right atrium is normal in size. Mitral Valve: The mitral valve is normal in appearance and function. Trivial mitral valve regurgitation. No mitral stenosis is present. Aortic Valve: The aortic valve is tri-leaflet and functions normally. There is no aortic valve regurgitation. No aortic valve stenosis is present. Tricuspid Valve: The tricuspid valve is normal in appearance and function. Trivial to mild tricuspid valve regurgitation. Borderline elevated pumonary artery pressure. Right ventricular systolic pressure measures 37mmHg. Pulmonic Valve: Pulmonary valve not well visualized. There is no pulmonic regurgitation seen. Aorta: Normal size aortic root measuring 3.3 cm. Pericardium: No pericardial effusion. (No Signature Object) Patient: ABBI MAYA Study Date: 01/02/2018 Page 2 of 2 09:16 AM [id number]
--- NOTE | 2018-01-02 16:31 | HOSPPROG ---
Hospitalist Progress Note Assessment/Plan: # acute ischemia to the right leg and foot with acute SFA occlusion - failure to resolve occlusion with tPA infusion and EKOS, unable to continue tPA due to fibrinogen depletion -s/p stent by IR / - foot remains sub-optimally perfused with mottling and dusky toes today, pulses not palpable nor heard by doppler -cont heparin -discussed with Dr. East, will likely need bypass surgery this hospitalization and eventually d/c with anti-coagulation (?coumadin vs eliquis) plus plavix -angiography today to evaluate for bypass options, not optimistic -pain control # acute DVT of right leg -heparin as above # agitation - resolved # noncompliance with Coumadin therapy Full code Dispo - cont inpt / ICU, ADD uncertain Subjective: Pt c/o ongoing RLE pain, comes and goes. No CP or SOB. EAting and drinking well. No other complaints. He is hoping to salvage his leg. Objective: Vital Signs Temp Pulse Resp BP Pulse Ox 37.4 C 72 18 149/74 H 97 01/02/18 16:25 01/02/18 16:25 01/02/18 16:25 01/02/18 16:25 01/02/18 16:25 Laboratory Results 01/02/18 05:39 12/31/17 04:00 01/01/18 01/02/18 01/03/18 05:59 05:59 05:59 Intake Total 3439 1680 Output Total 4450 850 Balance -1011 830 PT 17.9 SEC (12.0-15.0) H 12/30/17 20:30 INR 1.46 (0.83-1.16) H 12/30/17 20:30 - Physical Exam Constitutional: no apparent distress Eyes: PERRL Ears, Nose, Mouth, Throat: moist mucous membranes Cardiovascular: regular rate and rhythym Respiratory: no respiratory distress Gastrointestinal: normoactive bowel sounds, soft, non-tender abdomen Skin: warm Musculoskeletal: full muscle strength, other (RLE with mottling of foot and toes cool. No palpable pulses, nor found on doppler.) Neurologic: AAOx3 Psychiatric: interacting appropriately ICD10 Worksheet Patient Problems: Problems Problem Status Onset Arterial occlusion, lower extremity Acute DVT (deep venous thrombosis) Acute Elevated INR Acute Pulmonary emboli Acute
[2018-01-02] MEDS: LORazepam 1 MG TAB PO PRN (20:51)
[2018-01-02] MEDS: LATANOPROST 0.005% 2.5 ML OPHT DROPS RTEYE SCH (21:41)
[2018-01-03] MEDS: HEPARIN/DEXTROSE 500 ML IV SCH (04:48)
[2018-01-03] MEDS: HEPARIN 10,000 UNIT/10 ML MDV (1,000 UNIT/ML) IVP PRN (06:06)
[2018-01-03] MEDS: SENNOSIDES/DOCUSATE SODIUM TAB PO SCH ×2 (09:49→23:08)
[2018-01-03] MEDS: OMEGA-3 FATTY ACIDS 1,000 MG CAP PO SCH (09:49)
[2018-01-03] MEDS: FERROUS SULFATE 325 MG TAB PO SCH (09:49)
[2018-01-03] MEDS: POLYETHYLENE GLYCOL 3350 17 GM PKT PO PRN (09:50)
[2018-01-03] MEDS: oxyCODONE IR 5 MG TAB PO PRN (10:12)
--- NOTE | 2018-01-03 10:22 | SOAPPROG ---
MILAN Progress Note Assessment/Plan: Assessment: 62-year-old male with 5 days of right leg pain. Patient has hypercoagulable syndrome with protein C deficiency. He stopped his Coumadin therapy because the he lost his access to Medicine Presently has absent pedal pulses with a cool but viable foot. His right great toe is bluer then the rest and painful/left pedal pulses are intact CT shows right iliac clot and total occlusion of SFA from the mid thigh all the way down with no runoff being visible He is an limb with reddened state and will need a urgent thrombolysis and if unsuccessful as surgical thrombectomy. Will start heparinization until thrombolysis initiated His small vessels are completely occluded at this time so surgical options are somewhat limited but he may need fasciotomies if his blood flow was restored Risks and options including limb loss have been fully discussed the patient who understands the critical situation Plan: IR consultation for urgent thrombolysis 12/29/17 15:48 12/30/17 18:07 PATIENT STILL UNDERGOING THROMBOLYSIS BUT HAS HAD A DRAMATIC IMPROVEMENT IN THE BLOOD FLOW TO THE LEG INCLUDING ILIAC STENT. SFA IS OPENED UP THROUGH THE POPLITEAL WITH A SINGLE-VESSEL RUNOFF AND THE FOOT IS MUCH WARMER. WILL CONTINUE HEPARIN AND THROMBOLYSIS AND HOPES THAT WE CAN SAVE HIS LEG AND TOES. HE HAD RATHER POOR RESULTS FROM TPA INFUSION OVER NIGHT WITH BIG DROP IN HIS FIBRINOGEN LEVEL 01/02/18 09:06 rt foot still cool and painful, no doppler pulses, +pop pulse/ +sensation and motor function in toes but rest pain/ potential for limb loss if not improving plan cta to eval for fem-tib bypassfor limb salvage/ continue heparin 01/03/18 10:19 foot still hurts/ art studies show flat tracings at ankle/ cta shows no real runoff options for bypass/ pt headed for bka risks and options fully discussed and he wishes to try fem-tib bypass if any open vessel can be found plan attempt fem-tib bypass Objective: Vital Signs Temp Pulse Resp BP Pulse Ox 37.2 C 75 16 133/76 H 95 01/03/18 09:36 01/03/18 09:36 01/03/18 09:36 01/03/18 09:36 01/03/18 09:36 Laboratory Results 01/02/18 05:39 12/31/17 04:00 01/02/18 01/03/18 01/04/18 05:59 05:59 05:59 Intake Total 1680 150 Output Total 850 700 Balance 830 -550 PT 17.9 SEC (12.0-15.0) H 12/30/17 20:30 INR 1.46 (0.83-1.16) H 12/30/17 20:30 ICD10 Worksheet Patient Problems: Problems Problem Status Onset Arterial occlusion, lower extremity Acute DVT (deep venous thrombosis) Acute Elevated INR Acute Pulmonary emboli Acute
[2018-01-03] MEDS ORDERED: BUPIVACAINE 0.5% 10 ML SDV ONE ×2 (12:43→14:33)
[2018-01-03] MEDS ORDERED: PAPAVERINE HCL 60 MG/2 ML SDV ONE ×2 (12:45→12:46)
[2018-01-03] MEDS ORDERED: IOTHALAMATE MEG (CONRAY) 50 ML VIAL IV ONE ×2 (12:46→16:09)
[2018-01-03] MEDS ORDERED: LR 1,000 ML IV ONE (13:05)
[2018-01-03 13:43] LABS: PLATELET COUNT 234 10^3/uL (150-400)
--- NOTE | 2018-01-03 13:59 | PDANEPAE ---
ANE History of Present Illness 62 yo male with protein C deficiency who presented with occlusion of R LE arteries after stopping his Coumadin. ANE Past Medical History - Cardiovascular History Hx Hypertension: No Hx Arrhythmias: No Hx Coronary Artery / Peripheral Vascular Disease: No Hx CHF / Valvular Disease: No Cardiovascular History Comment: R LE arterial thrombosis despite tPA and stent placements. - Pulmonary History Hx COPD: No Hx Recent Upper Respiratory Infection: No Hx Oxygen in Use at Home: No Hx Sleep Apnea: No Sleep Apnea Screening Result - Last Documented: Negative - Neurologic History Hx Cerebrovascular Accident: Yes Neurologic History Comment: h/o stroke, pt denies any residual deficits, though cognitive deficits are noted in his past health history - Endocrine History Hx Diabetes: No Hypothyroid: No Obesity: no - Renal History Hx Renal Disorders: No - Liver History Hx Hepatic Disorders: No - Neurological & Psychiatric Hx Hx Neurological and Psychiatric Disorders: No - Other Health History Other Health History: 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 - Chronic Pain History Chronic Pain: Yes ANE Review of Systems Review of Systems: - Exercise capacity Exercise capacity: limited by disability - Systems Muscolosketal: Reports: other (R LE/foot pain - intermittent) ANE Patient History - Allergies Allergies/Adverse Reactions: No Known Allergies Allergy (Verified 12/29/17 08:19) - Home Medications Home Medications: Ferrous Sulfate [Ferrous Sulf 325 MG (*)] 325 mg PO DAILY 12/29/17 [Last Taken Unknown] Glucosamine Sulfate [Glucosamine Sulfate 500 MG (*)] 500 mg PO DAILY 12/29/17 [ Last Taken Unknown] Herbals/Supplements -Info Only 1 ea PO DAILY 12/29/17 [Last Taken Unknown] Latanoprost 0.005% [Xalatan 0.005% (*)] 1 drops RTEYE HS 12/29/17 [Last Taken Unknown] [place]-3 Fatty Acids [Fish Oil 1000 mg (*)] 1,000 mg PO DAILY 12/29/17 [Last Taken Unknown] - NPO status NPO Since - Liquids (Date): 01/01/18 NPO Since - Liquids (Time): 22:00 NPO Since - Solids (Date): 01/01/18 NPO Since - Solids (Time): 22:00 - Anes Hx Anes Hx: no prior problems - Smoking Hx Smoking Status: Never smoked Marijuana use: Yes - Alcohol Use Alcohol Use: Occasionally (3/day) ANE Labs/Vital Signs - Labs Result Diagrams: 01/03/18 13:30 12/31/17 04:00 - Vital Signs Blood Pressure: 131/66 Heart Rate: 77 Respiratory Rate: 12 O2 Sat (%): 93 Height: 190.5 cm Weight: 95.254 kg ANE Physical Exam - Airway Neck exam: FROM Mallampati Score: Class 2 Mouth exam: poor dentition - Pulmonary Pulmonary: clear to auscultation - Cardiovascular Cardiovascular: regular rate and rhythym ANE Anesthesia Plan Anesthesia Plan: general endotracheal anesthesia Lines/Monitors: additional IV
[2018-01-03] MEDS ORDERED: ceFAZolin 2 GM/SWFI 2 GM/20 ML SYR IVP ONE (14:15)
[2018-01-03] MEDS ORDERED: fentaNYL 100 MCG/2 ML INJ ONE (14:49)
[2018-01-03] MEDS ORDERED: LIDOCAINE 2% 5 ML SDV ONE (14:49)
[2018-01-03] MEDS ORDERED: ROCURONIUM 100 MG/10 ML VIAL ONE ×2 (14:49→15:39)
[2018-01-03] MEDS ORDERED: PROPOFOL/EMULSION 500 MG/50 ML BOTTLE IV ONE (14:50)
[2018-01-03] MEDS ORDERED: DIAZEPAM 5 MG/ML 1 ML SYR IVP ONE ×2 (15:36→18:29)
[2018-01-03] MEDS ORDERED: DEXAMETHASONE 4 MG/ML VIAL ONE ×2 (15:46)
[2018-01-03] MEDS ORDERED: HEPARIN 10,000 UNIT/10 ML MDV (1,000 UNIT/ML) ONE ×2 (15:50→18:38)
[2018-01-03] MEDS ORDERED: PHENYLEPHRINE HCL 100 MCG/ML SYR ONE (15:56)
[2018-01-03] MEDS ORDERED: ALTEPLASE 5 MG in NS 100 ML IV SCH (16:30)
[2018-01-03] MEDS ORDERED: HYDROmorphONE/DILAUDID 2 MG/ML INJ ONE (16:35)
--- NOTE | 2018-01-03 17:00 | ASMTCMCOM ---
CM Note CM Note Notes: Stephanie from [facility] here to meet with pt. CM discussed with pt prior and he is receptive to a SNF stay and meeting with her. It is still not known if pt will need a BKA but he thinks at least a toe amputation may be needed. Pt hopeful he can have [facility] SW assist him with housing needs while he is at the SNF since his mode of transportation is by bicycle and he is homeless. Stephanie to check pt's insurance to see what his coverage is. Pt to surgery this afternoon and will transfer to ICU. CM will continue to follow for d/c needs. Date Signed: 01/03/2018 04:59 PM Electronically Signed By:JUSTIN Lara
--- NOTE | 2018-01-03 18:28 | HOSPPROG ---
Hospitalist Progress Note Assessment/Plan: # acute ischemia to the right leg and foot with acute SFA occlusion - failure to resolve occlusion with tPA infusion and EKOS, unable to continue tPA due to fibrinogen depletion. s/p stent by IR 3/2 - foot remains sub-optimally perfused with mottling and dusky toes today, pulses not palpable nor heard by doppler -CTA with no e/o amenable vessels for bypass -on heparin -discussed with Dr. East, to OR today for attempt at bypass vs BKA, ICU post -op -eventually d/c with anti-coagulation (?coumadin vs eliquis) plus plavix -pain control # acute DVT of right leg -heparin as above # agitation - resolved # noncompliance with Coumadin therapy Full code Dispo - cont inpt / ICU, ADD uncertain Subjective: Continues to have RLE pain. No CP or SOB. Wants to avoid amputation, but aware he may need BKA. No fevers. Objective: Vital Signs Temp Pulse Resp BP Pulse Ox 36.9 C 77 12 131/66 H 93 01/03/18 11:17 01/03/18 14:40 01/03/18 14:40 01/03/18 14:40 01/03/18 14:40 Laboratory Results 01/03/18 13:30 12/31/17 04:00 01/02/18 01/03/18 01/04/18 05:59 05:59 05:59 Intake Total 1680 150 Output Total 850 700 Balance 830 -550 PT 17.9 SEC (12.0-15.0) H 12/30/17 20:30 INR 1.46 (0.83-1.16) H 12/30/17 20:30 - Physical Exam Constitutional: no apparent distress Eyes: PERRL Ears, Nose, Mouth, Throat: moist mucous membranes Cardiovascular: regular rate and rhythym Respiratory: no respiratory distress Gastrointestinal: normoactive bowel sounds, soft, non-tender abdomen Skin: other (RLE mottled, toes cool, dusky. No palpable pulses, unable to detect by doppler) Musculoskeletal: full muscle strength Neurologic: AAOx3 Psychiatric: interacting appropriately ICD10 Worksheet Patient Problems: Problems Problem Status Onset Arterial occlusion, lower extremity Acute DVT (deep venous thrombosis) Acute Elevated INR Acute Pulmonary emboli Acute
[2018-01-03] MEDS ORDERED: THROMBIN (BOVINE) 20,000 UNIT VIAL TP ONE (19:30)
[2018-01-03] MEDS ORDERED: ALBUTEROL 3 ML DEYVIAL IH PRN (19:51)
[2018-01-03] MEDS ORDERED: DIAZEPAM 5 MG/ML 1 ML SYR IVP PRN (19:51)
[2018-01-03] MEDS ORDERED: NALOXONE HCL 0.4 MG/ML INJ IVP PRN (19:51)
[2018-01-03] MEDS ORDERED: OXYCODONE/APAP 5/325 TAB PO PRN (19:51)
[2018-01-03] MEDS ORDERED: LR 500 ML IV PRN (19:51)
[2018-01-03] MEDS ORDERED: ONDANSETRON 4 MG/2 ML VIAL IVP PRN (19:51)
--- NOTE | 2018-01-03 20:20 | POSTANESTH ---
Post Anesthetic Evaluation Cardiovascular Status: Normal, Stable Respiratory Status: Normal, Stable Level of Consciousness/Mental Status: Can Participate in Eval, Mildly Sleepy, Arousable (Pt needs a lot of re-directon. Not in pain, but not entirely clear what is happening.) Pain Control: Adequate, Prn Tx Ordered Nausea/Vomiting Control: Adequate, Prn Tx Ordered Complications Possibly Related to Anesthesia: None Noted
[2018-01-03 21:01] LABS: INR 1.2 (0.83-1.16); PROTIME(PATIENT) 15.4 SEC (12.0-15.0)
--- NOTE | 2018-01-03 21:08 | POSTOPPROG ---
Post Op Note Date of Operation: 01/03/18 Surgeon: Bandar East Industrial Boilermaker: VAHE Anesthesiologist: BREEN Anesthesia: GET(General Endotracheal) Pre-op Diagnosis: RT FOOT ISCHEMIA Post-op Diagnosis: SAME Indication: PAIN, THREATENED LIMB LOSS Procedure: RT FEM-DORSALIS BYPASS WITH VEIN, ANGIO, THROMBECTOMY Findings: ONLY OPEN PEDAL VESSEL WAS DP Inf/Abcess present in the surg proc area at time of surgery?: No Depth: Deep Incisional (Fascial) EBL: 100-500 Complications: 0
[2018-01-03] MEDS: WARFARIN SODIUM 5 MG TAB PO SCH (21:54)
[2018-01-03] MEDS: CLOPIDOGREL BISULFATE 75 MG TAB PO SCH (21:54)
[2018-01-03] MEDS: LATANOPROST 0.005% 2.5 ML OPHT DROPS RTEYE SCH (23:07)
[2018-01-04] MEDS: oxyCODONE IR 5 MG TAB PO PRN ×5 (00:47→23:29)
[2018-01-04] MEDS: HEPARIN/DEXTROSE 500 ML IV SCH ×3 (00:49→19:38)
[2018-01-04] MEDS: HEPARIN 10,000 UNIT/10 ML MDV (1,000 UNIT/ML) IVP PRN ×3 (03:28→17:21)
[2018-01-04 05:48] LABS: PLATELET COUNT 246 10^3/uL (150-400)
[2018-01-04 06:09] LABS: INR 1.29 (0.83-1.16); PROTIME(PATIENT) 16.3 SEC (12.0-15.0)
[2018-01-04] MEDS ORDERED: HYDROmorphone HCL/NS 0.5 MG/ML SYR IVP PRN (08:30)
[2018-01-04] MEDS: SENNOSIDES/DOCUSATE SODIUM TAB PO SCH ×2 (08:59→19:38)
[2018-01-04] MEDS: CLOPIDOGREL BISULFATE 75 MG TAB PO SCH (08:59)
[2018-01-04] MEDS: OMEGA-3 FATTY ACIDS 1,000 MG CAP PO SCH (08:59)
[2018-01-04] MEDS: FERROUS SULFATE 325 MG TAB PO SCH (08:59)
--- NOTE | 2018-01-04 12:31 | ASMTCMCOM ---
CM Note CM Note Notes: Spoke with Stephanie from [facility] who states they have accepted patient for their rehab program. She did check his insurance and he has 100 days of coverage. Patient is recovering from surgery yesterday. Will keep Stephanie updated on his progress. CM will follow. Date Signed: 01/04/2018 12:30 PM Electronically Signed By:Rosa Mar LCSW
--- NOTE | 2018-01-04 14:00 | HOSPPROG ---
Hospitalist Progress Note Assessment/Plan: # acute ischemia to the right leg and foot with acute SFA occlusion - failure to resolve occlusion with tPA infusion and EKOS, unable to continue tPA due to fibrinogen depletion * s/p stent by IR 3/2 * s/p fem pop * cont heparin and plavix # acute DVT of right leg -heparin as above # agitation - resolved # noncompliance with Coumadin therapy Subjective: foot is feeling better Objective: Vital Signs Temp Pulse Resp BP Pulse Ox 37.0 C 82 17 113/58 L 92 01/04/18 12:00 01/04/18 12:00 01/04/18 12:00 01/04/18 12:00 01/04/18 12:00 Laboratory Results 01/04/18 05:30 01/04/18 05:30 01/03/18 01/04/18 01/05/18 05:59 05:59 05:59 Intake Total 150 1063 800 Output Total 700 1500 Balance -550 -437 800 PT 16.3 SEC (12.0-15.0) H 01/04/18 05:30 INR 1.29 (0.83-1.16) H 01/04/18 05:30 - Physical Exam Constitutional: no apparent distress, appears nourished, not in pain Eyes: anicteric sclera, EOMI Ears, Nose, Mouth, Throat: moist mucous membranes, hearing normal Cardiovascular: regular rate and rhythym Respiratory: no respiratory distress, no rales or rhonchi Gastrointestinal: normoactive bowel sounds, soft, non-tender abdomen, no palpable masses Skin: warm Musculoskeletal: other (right foot warm, doppler pulses) Neurologic: AAOx3 Psychiatric: interacting appropriately, not anxious, not encephalopathic, thought process linear ICD10 Worksheet Patient Problems: Problems Problem Status Onset Arterial occlusion, lower extremity Acute DVT (deep venous thrombosis) Acute Elevated INR Acute Pulmonary emboli Acute
[2018-01-04] MEDS: WARFARIN SODIUM 5 MG TAB PO SCH (15:26)
[2018-01-05] MEDS: LATANOPROST 0.005% 2.5 ML OPHT DROPS RTEYE SCH ×2 (04:34→21:48)
[2018-01-05 05:27] LABS: PLATELET COUNT 283 10^3/uL (150-400)
[2018-01-05 05:36] LABS: INR 1.57 (0.83-1.16); PROTIME(PATIENT) 18.9 SEC (12.0-15.0)
[2018-01-05] MEDS: FERROUS SULFATE 325 MG TAB PO SCH (08:49)
[2018-01-05] MEDS: CLOPIDOGREL BISULFATE 75 MG TAB PO SCH (08:49)
[2018-01-05] MEDS: SENNOSIDES/DOCUSATE SODIUM TAB PO SCH ×2 (08:49→20:26)
[2018-01-05] MEDS: OMEGA-3 FATTY ACIDS 1,000 MG CAP PO SCH (08:49)
[2018-01-05] MEDS: HEPARIN/DEXTROSE 500 ML IV SCH ×2 (08:50→18:54)
[2018-01-05] MEDS: oxyCODONE IR 5 MG TAB PO PRN ×3 (10:15→20:26)
--- NOTE | 2018-01-05 13:35 | ASMTCMCOM ---
CM Note CM Note Notes: Spoke with patient's nurse who states it may be 3-4 more days before patient is ready for rehab. Notified Stephanie at [facility] who will need to hear from CM on Tuesday as she needs to call [facility] for his auth number prior to d/c. Otherwise,d/c plan remains patient going to [facility] for SNF rehab. CM will follow. Date Signed: 01/05/2018 01:34 PM Electronically Signed By:Rosa Mar LCSW
--- NOTE | 2018-01-05 13:51 | HOSPPROG ---
Hospitalist Progress Note Assessment/Plan: # acute ischemia to the right leg and foot with acute SFA occlusion - failure to resolve occlusion with tPA infusion and EKOS, unable to continue tPA due to fibrinogen depletion * s/p stent by IR 12/30 * s/p fem pop 01/03 * cont heparin and plavix # acute DVT of right leg -heparin as above * on coumadin - he wants to stay on coumadin. he was off it because of insurance issues # agitation - resolved # noncompliance with Coumadin therapy Subjective: no new complaints. foot pain is better Objective: Vital Signs Temp Pulse Resp BP Pulse Ox 36.5 C 72 16 129/65 H 93 01/05/18 00:00 01/05/18 06:00 01/05/18 06:00 01/05/18 06:00 01/05/18 06:00 Laboratory Results 01/05/18 05:10 01/05/18 05:10 01/04/18 01/05/18 01/06/18 05:59 05:59 05:59 Intake Total 1063 3106 Output Total 1500 2300 Balance -437 806 PT 18.9 SEC (12.0-15.0) H 01/05/18 05:10 INR 1.57 (0.83-1.16) H 01/05/18 05:10 - Physical Exam Constitutional: no apparent distress, appears nourished, not in pain Eyes: anicteric sclera, EOMI Ears, Nose, Mouth, Throat: moist mucous membranes, hearing normal Cardiovascular: regular rate and rhythym, no murmur, rub, or gallop Respiratory: no respiratory distress, no rales or rhonchi, clear to auscultation Skin: warm Musculoskeletal: other (right foot - warm, doppler pulse. dusky great toe and tips of other toes) Neurologic: AAOx3 Psychiatric: interacting appropriately, not anxious, not encephalopathic, thought process linear ICD10 Worksheet Patient Problems: Problems Problem Status Onset Arterial occlusion, lower extremity Acute DVT (deep venous thrombosis) Acute Elevated INR Acute Pulmonary emboli Acute
--- NOTE | 2018-01-05 14:09 | SOAPPROG ---
SOAP Progress Note Assessment/Plan: Assessment: 62 y/o male with protein C deficiency, s/p right fem/dorsalis bypass graft 01/03 S: Doing well. Pain much improved, didn't need any pain meds over night. Reports improved sensation in right foot. O: Alert Afebrile No WOB RLE: incisions cdi, good graft pulse, warm, color improving in right toes. Neuro: CN 2-12 grossly intact Plan: Ok to ambulate at this point. Downgrade to med/surg. Continue to monitor. 01/05/18 14:09 Objective: Vital Signs Temp Pulse Resp BP Pulse Ox 36.5 C 72 16 129/65 H 93 01/05/18 00:00 01/05/18 06:00 01/05/18 06:00 01/05/18 06:00 01/05/18 06:00 Laboratory Results 01/05/18 05:10 01/05/18 05:10 01/04/18 01/05/18 01/06/18 05:59 05:59 05:59 Intake Total 1063 3106 Output Total 1500 2300 Balance -437 806 PT 18.9 SEC (12.0-15.0) H 01/05/18 05:10 INR 1.57 (0.83-1.16) H 01/05/18 05:10 ICD10 Worksheet Patient Problems: Problems Problem Status Onset Arterial occlusion, lower extremity Acute DVT (deep venous thrombosis) Acute Elevated INR Acute Pulmonary emboli Acute
[2018-01-05] MEDS: WARFARIN SODIUM 5 MG TAB PO SCH (16:09)
[2018-01-05] MEDS: LORazepam 1 MG TAB PO PRN (20:34)
[2018-01-06] MEDS: HEPARIN/DEXTROSE 500 ML IV SCH (05:23)
[2018-01-06 05:26] LABS: INR 2.37 (0.83-1.16); PROTIME(PATIENT) 25.9 SEC (12.0-15.0)
--- NOTE | 2018-01-06 08:49 | SOAPPROG ---
SOAP Progress Note Assessment/Plan: Assessment: 62 y/o male with protein C deficiency, s/p right fem/dorsalis bypass graft 01/03 S: Doing well. Denies pain when laying in bed, but had significant pain yesterday when the PT got him up for the first time since surgery. O: Alert Afebrile No WOB RLE: incisions cdi, good graft pulse, warm, color improving in right toes. Neuro: CN 2-12 grossly intact Plan: Plan for PT again today. Pain meds prior to PT. Continue to monitor. 01/06/18 08:47 Objective: Vital Signs Temp Pulse Resp BP Pulse Ox 36.6 C 72 16 116/66 94 01/06/18 07:34 01/06/18 07:34 01/06/18 07:34 01/06/18 07:34 01/06/18 07:34 Laboratory Results 01/05/18 05:10 01/05/18 05:10 01/05/18 01/06/18 01/07/18 05:59 05:59 05:59 Intake Total 3106 1363 Output Total 2300 1350 Balance 806 13 PT 25.9 SEC (12.0-15.0) H 01/06/18 04:38 INR 2.37 (0.83-1.16) H 01/06/18 04:38 ICD10 Worksheet Patient Problems: Problems Problem Status Onset Arterial occlusion, lower extremity Acute DVT (deep venous thrombosis) Acute Elevated INR Acute Pulmonary emboli Acute
[2018-01-06] MEDS: FERROUS SULFATE 325 MG TAB PO SCH (09:12)
[2018-01-06] MEDS: SENNOSIDES/DOCUSATE SODIUM TAB PO SCH ×2 (09:12→21:40)
[2018-01-06] MEDS: OMEGA-3 FATTY ACIDS 1,000 MG CAP PO SCH (09:12)
[2018-01-06] MEDS: CLOPIDOGREL BISULFATE 75 MG TAB PO SCH (09:12)
[2018-01-06] MEDS: oxyCODONE IR 5 MG TAB PO PRN ×4 (09:13→21:40)
[2018-01-06] MEDS: HEPARIN 10,000 UNIT/10 ML MDV (1,000 UNIT/ML) IVP PRN ×2 (09:14→17:12)
--- NOTE | 2018-01-06 10:05 | HOSPPROG ---
Hospitalist Progress Note Assessment/Plan: #Right femoral vein DVT: INR > 2, decrease coumadin dose to 2.5mg. H/H stable. CAn DC heparin tomorrow if INR stays at 2 #Protein C deficiency #Acute ischemia right foot/leg: s/p fem/dorsalis bypass 01/03. PT/OT/ Plavix, transitioning to coumadin #Deconditioning: PT recs SNF, but may be difficult given homelessness #DVT ppx: heparin #Disp: cont inpt admission for IV heparin, PT Subjective: pain controlled. Working with PT Objective: Vital Signs Temp Pulse Resp BP Pulse Ox 36.6 C 72 16 116/66 94 01/06/18 07:34 01/06/18 07:34 01/06/18 07:34 01/06/18 07:34 01/06/18 07:34 Laboratory Results 01/05/18 05:10 01/05/18 05:10 01/05/18 01/06/18 01/07/18 05:59 05:59 05:59 Intake Total 3106 1363 Output Total 2300 1350 Balance 806 13 PT 25.9 SEC (12.0-15.0) H 01/06/18 04:38 INR 2.37 (0.83-1.16) H 01/06/18 04:38 - Physical Exam Constitutional: no apparent distress Eyes: PERRL Ears, Nose, Mouth, Throat: moist mucous membranes Cardiovascular: regular rate and rhythym Respiratory: no respiratory distress Gastrointestinal: normoactive bowel sounds Genitourinary: no bladder fullness Skin: warm Musculoskeletal: other (right leg incision, stapled CDI. palpable pulse) Neurologic: AAOx3 Psychiatric: interacting appropriately ICD10 Worksheet Patient Problems: Problems Problem Status Onset Arterial occlusion, lower extremity Acute DVT (deep venous thrombosis) Acute Elevated INR Acute Pulmonary emboli Acute
[2018-01-06] MEDS ORDERED: WARFARIN SODIUM 2.5 MG TAB PO ONE (16:00)
[2018-01-06] MEDS: DIPHENHYDRAMINE CREAM TP PRN (17:10)
[2018-01-06] MEDS: LORazepam 1 MG TAB PO PRN (21:40)
[2018-01-06] MEDS: LATANOPROST 0.005% 2.5 ML OPHT DROPS RTEYE SCH (22:19)
[2018-01-07] MEDS: HEPARIN/DEXTROSE 500 ML IV SCH (01:52)
[2018-01-07 04:57] LABS: INR 2.12 (0.83-1.16); PROTIME(PATIENT) 23.8 SEC (12.0-15.0)
[2018-01-07] MEDS: oxyCODONE IR 5 MG TAB PO PRN (05:30)
[2018-01-07] MEDS ORDERED: HYDROmorphONE/DILAUDID 2 MG/ML INJ IVP PRN ×2 (07:30→13:35)
[2018-01-07] MEDS: OMEGA-3 FATTY ACIDS 1,000 MG CAP PO SCH (08:12)
[2018-01-07] MEDS: SENNOSIDES/DOCUSATE SODIUM TAB PO SCH ×2 (08:12→21:26)
[2018-01-07] MEDS: CLOPIDOGREL BISULFATE 75 MG TAB PO SCH (08:12)
[2018-01-07] MEDS: FERROUS SULFATE 325 MG TAB PO SCH (08:12)
--- NOTE | 2018-01-07 08:28 | HOSPPROG ---
Hospitalist Progress Note Assessment/Plan: #Right femoral vein DVT: INR > 2 for 2 days, will stop heparin. H/H stable #Protein C deficiency #Acute ischemia right foot/leg: s/p fem/dorsalis bypass 01/03. PT/OT/ Plavix, coumadin #Acute pain: weaning off IV. #Deconditioning: PT recs SNF, but may be difficult given homelessness #DVT ppx: heparin #Disp: cont inpt admission for pain control, PT. Hope to DC in next 1-[address] days[address] [facility] Subjective: pain in leg with PT Objective: Vital Signs Temp Pulse Resp BP Pulse Ox 37.3 C 88 20 123/59 H 93 01/07/18 06:51 01/07/18 06:51 01/07/18 06:51 01/07/18 06:51 01/07/18 06:51 Laboratory Results 01/07/18 04:28 01/05/18 05:10 01/06/18 01/07/18 01/08/18 05:59 05:59 06:59 Intake Total 1363 2200 Output Total 1350 2525 Balance 13 -325 PT 23.8 SEC (12.0-15.0) H 01/07/18 04:28 INR 2.12 (0.83-1.16) H 01/07/18 04:28 - Physical Exam Constitutional: no apparent distress Eyes: PERRL Ears, Nose, Mouth, Throat: moist mucous membranes Cardiovascular: regular rate and rhythym, no murmur, rub, or gallop Respiratory: no respiratory distress Gastrointestinal: normoactive bowel sounds Genitourinary: No xiao in urethra Skin: warm Musculoskeletal: other (right leg incision healing well. Palable pulses) Neurologic: AAOx3, CN II-XII Intact Psychiatric: flat affect ICD10 Worksheet Patient Problems: Problems Problem Status Onset Arterial occlusion, lower extremity Acute DVT (deep venous thrombosis) Acute Elevated INR Acute Pulmonary emboli Acute
--- NOTE | 2018-01-07 10:55 | ASMTCMCOM ---
CM Note CM Note Notes: Spoke w/RN, pt not yet ready for dc per MD, in any case pt cant's dc until Tuesday because Stephanie at [facility] needs to call [facility] for authorization. Updates sent to DC Plan: [facility] Date Signed: 01/07/2018 10:54 AM Electronically Signed By:Elizabeth Davis RN
--- NOTE | 2018-01-07 11:42 | SOAPPROG ---
MILAN Progress Note Assessment/Plan: Assessment: 62-year-old male with 5 days of right leg pain. Patient has hypercoagulable syndrome with protein C deficiency. He stopped his Coumadin therapy because the he lost his access to Medicine Presently has absent pedal pulses with a cool but viable foot. His right great toe is bluer then the rest and painful/left pedal pulses are intact CT shows right iliac clot and total occlusion of SFA from the mid thigh all the way down with no runoff being visible He is an limb with reddened state and will need a urgent thrombolysis and if unsuccessful as surgical thrombectomy. Will start heparinization until thrombolysis initiated His small vessels are completely occluded at this time so surgical options are somewhat limited but he may need fasciotomies if his blood flow was restored Risks and options including limb loss have been fully discussed the patient who understands the critical situation Plan: IR consultation for urgent thrombolysis 12/29/17 15:48 12/30/17 18:07 PATIENT STILL UNDERGOING THROMBOLYSIS BUT HAS HAD A DRAMATIC IMPROVEMENT IN THE BLOOD FLOW TO THE LEG INCLUDING ILIAC STENT. SFA IS OPENED UP THROUGH THE POPLITEAL WITH A SINGLE-VESSEL RUNOFF AND THE FOOT IS MUCH WARMER. WILL CONTINUE HEPARIN AND THROMBOLYSIS AND HOPES THAT WE CAN SAVE HIS LEG AND TOES. HE HAD RATHER POOR RESULTS FROM TPA INFUSION OVER NIGHT WITH BIG DROP IN HIS FIBRINOGEN LEVEL 01/02/18 09:06 rt foot still cool and painful, no doppler pulses, +pop pulse/ +sensation and motor function in toes but rest pain/ potential for limb loss if not improving plan cta to eval for fem-tib bypassfor limb salvage/ continue heparin 01/03/18 10:19 foot still hurts/ art studies show flat tracings at ankle/ cta shows no real runoff options for bypass/ pt headed for bka risks and options fully discussed and he wishes to try fem-tib bypass if any open vessel can be found plan attempt fem-tib bypass 01/07/18 11:39 STILL HAVING SOME PAIN WHEN AMBULATING/FOOT IS WARM/EXCELLENT PULSE IN THE GRAFT /GREAT TOE IS STILL BLUE/WOUND OKAY/AFEBRILE OVERALL IMPROVING Objective: Vital Signs Temp Pulse Resp BP Pulse Ox 37.7 C 76 18 123/70 H 94 01/07/18 11:24 01/07/18 11:24 01/07/18 11:24 01/07/18 11:24 01/07/18 11:24 Laboratory Results 01/07/18 04:28 01/05/18 05:10 01/06/18 01/07/18 01/08/18 05:59 05:59 06:59 Intake Total 1363 2200 Output Total 1350 2525 300 Balance 13 -325 -300 PT 23.8 SEC (12.0-15.0) H 01/07/18 04:28 INR 2.12 (0.83-1.16) H 01/07/18 04:28 ICD10 Worksheet Patient Problems: Problems Problem Status Onset Arterial occlusion, lower extremity Acute DVT (deep venous thrombosis) Acute Elevated INR Acute Pulmonary emboli Acute
[2018-01-07] MEDS ORDERED: WARFARIN SODIUM 5 MG TAB PO ONE (16:00)
[2018-01-07] MEDS: ACETAMINOPHEN 500 MG TAB PO SCH ×2 (16:26→21:26)
[2018-01-07] MEDS: LATANOPROST 0.005% 2.5 ML OPHT DROPS RTEYE SCH (21:39)
[2018-01-08 04:57] LABS: INR 3.04 (0.83-1.16); PROTIME(PATIENT) 31.3 SEC (12.0-15.0)
[2018-01-08] MEDS: FERROUS SULFATE 325 MG TAB PO SCH (10:14)
[2018-01-08] MEDS: SENNOSIDES/DOCUSATE SODIUM TAB PO SCH ×2 (10:14→20:31)
[2018-01-08] MEDS: CLOPIDOGREL BISULFATE 75 MG TAB PO SCH (10:14)
[2018-01-08] MEDS: OMEGA-3 FATTY ACIDS 1,000 MG CAP PO SCH (10:15)
[2018-01-08] MEDS: ACETAMINOPHEN 500 MG TAB PO SCH ×3 (10:15→21:57)
[2018-01-08] MEDS: oxyCODONE IR 5 MG TAB PO PRN ×2 (10:15→20:36)
--- NOTE | 2018-01-08 11:45 | SOAPPROG ---
MILAN Progress Note Assessment/Plan: Assessment: 62-year-old male with 5 days of right leg pain. Patient has hypercoagulable syndrome with protein C deficiency. He stopped his Coumadin therapy because the he lost his access to Medicine Presently has absent pedal pulses with a cool but viable foot. His right great toe is bluer then the rest and painful/left pedal pulses are intact CT shows right iliac clot and total occlusion of SFA from the mid thigh all the way down with no runoff being visible He is an limb with reddened state and will need a urgent thrombolysis and if unsuccessful as surgical thrombectomy. Will start heparinization until thrombolysis initiated His small vessels are completely occluded at this time so surgical options are somewhat limited but he may need fasciotomies if his blood flow was restored Risks and options including limb loss have been fully discussed the patient who understands the critical situation Plan: IR consultation for urgent thrombolysis 12/29/17 15:48 12/30/17 18:07 PATIENT STILL UNDERGOING THROMBOLYSIS BUT HAS HAD A DRAMATIC IMPROVEMENT IN THE BLOOD FLOW TO THE LEG INCLUDING ILIAC STENT. SFA IS OPENED UP THROUGH THE POPLITEAL WITH A SINGLE-VESSEL RUNOFF AND THE FOOT IS MUCH WARMER. WILL CONTINUE HEPARIN AND THROMBOLYSIS AND HOPES THAT WE CAN SAVE HIS LEG AND TOES. HE HAD RATHER POOR RESULTS FROM TPA INFUSION OVER NIGHT WITH BIG DROP IN HIS FIBRINOGEN LEVEL 01/02/18 09:06 rt foot still cool and painful, no doppler pulses, +pop pulse/ +sensation and motor function in toes but rest pain/ potential for limb loss if not improving plan cta to eval for fem-tib bypassfor limb salvage/ continue heparin 01/03/18 10:19 foot still hurts/ art studies show flat tracings at ankle/ cta shows no real runoff options for bypass/ pt headed for bka risks and options fully discussed and he wishes to try fem-tib bypass if any open vessel can be found plan attempt fem-tib bypass 01/07/18 11:39 STILL HAVING SOME PAIN WHEN AMBULATING/FOOT IS WARM/EXCELLENT PULSE IN THE GRAFT /GREAT TOE IS STILL BLUE/WOUND OKAY/AFEBRILE OVERALL IMPROVING 01/08/18 11:44 WOUNDS GREAT/PULSES EXCELLENT/PAIN DECREASED/AFEBRILE/INR 3/ PLAN HIS CHECK SKIN GRAFT IN THE A.M. Objective: Vital Signs Temp Pulse Resp BP Pulse Ox 37.2 C 87 16 125/72 H 98 01/08/18 11:06 01/08/18 11:06 01/08/18 11:06 01/08/18 11:06 01/08/18 11:06 Laboratory Results 01/08/18 04:26 01/05/18 05:10 01/07/18 01/08/18 01/09/18 04:59 05:59 05:59 Intake Total Output Total 300 Balance -300 PT 31.3 SEC (12.0-15.0) H 01/08/18 04:26 INR 3.04 (0.83-1.16) H 01/08/18 04:26 ICD10 Worksheet Patient Problems: Problems Problem Status Onset Arterial occlusion, lower extremity Acute DVT (deep venous thrombosis) Acute Elevated INR Acute Pulmonary emboli Acute
--- NOTE | 2018-01-08 14:42 | HOSPPROG ---
Hospitalist Progress Note Assessment/Plan: #Right femoral vein DVT: INR 3 today. Hold coumadin today, pharmacy assisting with dosing #Protein C deficiency #Acute ischemia right foot/leg: s/p fem/dorsalis bypass 01/03. PT/OT/ Plavix, coumadin #Acute pain: DC IV. Cont PO oxycodone, scheduled APAP #Deconditioning: PT recs SNF, but may be difficult given homelessness #DVT ppx: coumadin #Disp: cont inpt admission for pain control, PT. Hope to DC in next 1-2 days. Plan for [facility] tomorrow if accepted Subjective: working with OT during my visit Objective: Vital Signs Temp Pulse Resp BP Pulse Ox 37.2 C 87 16 125/72 H 98 01/08/18 11:06 01/08/18 11:06 01/08/18 11:06 01/08/18 11:06 01/08/18 11:06 Laboratory Results 01/08/18 04:26 01/05/18 05:10 01/07/18 01/08/18 01/09/18 04:59 05:59 05:59 Intake Total Output Total 300 Balance -300 PT 31.3 SEC (12.0-15.0) H 01/08/18 04:26 INR 3.04 (0.83-1.16) H 01/08/18 04:26 - Physical Exam Constitutional: no apparent distress Eyes: PERRL Ears, Nose, Mouth, Throat: moist mucous membranes Cardiovascular: regular rate and rhythym Respiratory: no respiratory distress Gastrointestinal: normoactive bowel sounds, soft, non-tender abdomen Genitourinary: no bladder fullness Musculoskeletal: other (right great and 1st toe blue. Good pulses. Leg surgical site with some redness, no purulence) Neurologic: CN II-XII Intact Psychiatric: flat affect ICD10 Worksheet Patient Problems: Problems Problem Status Onset Arterial occlusion, lower extremity Acute DVT (deep venous thrombosis) Acute Elevated INR Acute Pulmonary emboli Acute
[2018-01-08] MEDS ORDERED: WARFARIN SODIUM 2 MG TAB PO SCH (16:00)
[2018-01-08] MEDS: DIPHENHYDRAMINE CREAM TP PRN (17:12)
[2018-01-08] MEDS: LATANOPROST 0.005% 2.5 ML OPHT DROPS RTEYE SCH (20:29)
[2018-01-09 05:57] LABS: INR 2.38 (0.83-1.16)
[2018-01-09] MEDS: oxyCODONE IR 5 MG TAB PO PRN ×2 (08:09→16:11)
[2018-01-09] MEDS: CLOPIDOGREL BISULFATE 75 MG TAB PO SCH (08:09)
[2018-01-09] MEDS: ACETAMINOPHEN 500 MG TAB PO SCH ×3 (08:09→21:06)
[2018-01-09] MEDS: FERROUS SULFATE 325 MG TAB PO SCH (08:09)
[2018-01-09] MEDS: SENNOSIDES/DOCUSATE SODIUM TAB PO SCH ×2 (08:09→21:06)
[2018-01-09] MEDS: OMEGA-3 FATTY ACIDS 1,000 MG CAP PO SCH (08:09)
--- NOTE | 2018-01-09 11:09 | SOAPPROG ---
SOAP Progress Note Assessment/Plan: Assessment: 62 y/o male with protein C deficiency, s/p right fem/dorsalis bypass graft 01/03 S: Doing well. Denies pain when laying in bed, but had significant pain yesterday when the PT got him up for the first time since surgery. O: Alert Afebrile No WOB RLE: incisions cdi, good graft pulse, warm, color improving in right toes. Neuro: CN 2-12 grossly intact Plan: Plan for PT again today. Pain meds prior to PT. Continue to monitor. 01/06/18 08:47 01/09/18 11:04 Pain still controlled. Getting out of bed with PT. Toes somewhat darker blue color today Removed dressing. Leg incisions cdi. Will leave open to air. Skin graft site on R foot: partially white. Unable to assess if it is getting blood flow underneath. Dressing applied to skin graft site. Good graft pulse. Per Dr. East, pt now have dark stools. Will monitor serial H&Hs. Abdomen soft , nontender. Ok to shower today, cover right foot dressing to avoid getting it wet. Objective: Vital Signs Temp Pulse Resp BP Pulse Ox 36.8 C 70 16 120/70 99 01/09/18 07:25 01/09/18 07:25 01/09/18 07:25 01/09/18 07:25 01/09/18 07:25 Laboratory Results 01/09/18 04:35 01/05/18 05:10 01/08/18 01/09/18 01/10/18 05:59 05:59 05:59 Intake Total 1999 Output Total 2350 Balance -350 PT 26.0 SEC (12.0-15.0) H 01/09/18 04:35 INR 2.38 (0.83-1.16) H 01/09/18 04:35 ICD10 Worksheet Patient Problems: Problems Problem Status Onset Arterial occlusion, lower extremity Acute DVT (deep venous thrombosis) Acute Elevated INR Acute Pulmonary emboli Acute
--- NOTE | 2018-01-09 14:07 | ASMTCMCOM ---
CM Note CM Note Notes: Spoke with Megan Freire who will call for [facility] authorization for patient. Dr. Silvestre's note indicates patient will be ready for d/c tomorrow or Tuesday. CM will follow. Date Signed: 01/09/2018 02:06 PM Electronically Signed By:Rosa Mar LCSW
--- NOTE | 2018-01-09 15:31 | HOSPPROG ---
Hospitalist Progress Note Assessment/Plan: #Melena: reported black stools here in the hosp for past several days. No h/o GIB. Has been on iron for days and never black stools. Have to ensure no bleed since both coumadin and Plavix needed. Awaiting FOBT. IF positive, will need EGD. H/H and vitals have been stable #Right femoral vein DVT: Hold coumadin today with possible bleed. Will start heparin if INR <2 tomorrow #Protein C deficiency #Acute ischemia right foot/leg: s/p fem/dorsalis bypass 01/03. PT/OT/ Plavix, coumadin #Acute pain: DC IV. Cont PO oxycodone, scheduled APAP #Deconditioning: PT recs SNF, but may be difficult given homelessness #DVT ppx: coumadin #Disp: cont inpt admission for pain control, PT. Hope to DC in next 1-2 days. Plan for [facility] tomorrow if accepted Subjective: pain better controlled in leg. No BM today Objective: Vital Signs Temp Pulse Resp BP Pulse Ox 37.1 C 78 16 114/60 99 01/09/18 12:00 01/09/18 12:00 01/09/18 12:00 01/09/18 12:00 01/09/18 12:00 Laboratory Results 01/09/18 04:35 01/05/18 05:10 01/08/18 01/09/18 01/10/18 05:59 05:59 05:59 Intake Total 2000 1000 Output Total 2350 Balance -350 1000 PT 26.0 SEC (12.0-15.0) H 01/09/18 04:35 INR 2.38 (0.83-1.16) H 01/09/18 04:35 - Time Spent With Patient Time Spent with Patient: greater than 35 minutes Time Spent with Patient: Greater than 35 minutes spent on this patients care, greater than 50% of time spent counseling, educating, and coordinating care regarding the above mentioned plan. - Physical Exam Constitutional: no apparent distress Eyes: PERRL Ears, Nose, Mouth, Throat: moist mucous membranes, hearing normal Cardiovascular: regular rate and rhythym, no murmur, rub, or gallop Respiratory: no respiratory distress, no rales or rhonchi Gastrointestinal: normoactive bowel sounds, No no palpable masses, No tenderness Genitourinary: no bladder fullness Musculoskeletal: other (right leg incision healing. right 1-3rd toes blue, cool. Palable pulses) Neurologic: AAOx3, CN II-XII Intact ICD10 Worksheet Patient Problems: Problems Problem Status Onset Arterial occlusion, lower extremity Acute DVT (deep venous thrombosis) Acute Elevated INR Acute Pulmonary emboli Acute
[2018-01-09] MEDS ORDERED: POLYETHYLENE GLYCOL 3350 17 GM PKT PO ONE (15:51)
[2018-01-09] MEDS: POLYETHYLENE GLYCOL 3350 17 GM PKT PO PRN (16:16)
[2018-01-09] MEDS: LATANOPROST 0.005% 2.5 ML OPHT DROPS RTEYE SCH (22:17)
[2018-01-10] MEDS: ZOLPIDEM TARTRATE 5 MG TAB PO PRN (00:29)
[2018-01-10 05:28] LABS: INR 2.15 (0.83-1.16)
[2018-01-10] MEDS: oxyCODONE IR 5 MG TAB PO PRN (09:17)
[2018-01-10] MEDS: ACETAMINOPHEN 500 MG TAB PO SCH (09:18)
[2018-01-10] MEDS: CLOPIDOGREL BISULFATE 75 MG TAB PO SCH (09:19)
[2018-01-10] MEDS: OMEGA-3 FATTY ACIDS 1,000 MG CAP PO SCH (09:19)
[2018-01-10] MEDS: SENNOSIDES/DOCUSATE SODIUM TAB PO SCH (09:19)
[2018-01-10 11:07] VITALS: BP 129/75; PULSE 82; RESP 20; TEMP 98.1; O2SAT 98
--- NOTE | 2018-01-10 12:19 | HOSPPROG ---
Hospitalist Progress Note Assessment/Plan: #Melena: reported black stools here in the hosp for past several days. No h/o GIB. FOBT negative and H/H stable. Ok to resume AC, Plavix #Right femoral vein DVT: 2.5mg today and then 5mg. Repeat INR #Protein C deficiency #Acute ischemia right foot/leg: s/p fem/dorsalis bypass 01/03. PT/OT/ Plavix, coumadin. FU Dr. East #Acute pain: DC IV. Cont PO oxycodone, scheduled APAP #Deconditioning: PT recs SNF, but may be difficult given homelessness #DVT ppx: coumadin #Disp: DC to [facility] today Subjective: no abd pain. N/V Objective: Vital Signs Temp Pulse Resp BP Pulse Ox 36.7 C 82 20 129/75 H 98 01/10/18 11:06 01/10/18 11:06 01/10/18 11:06 01/10/18 11:06 01/10/18 11:06 Laboratory Results 01/10/18 04:32 01/05/18 05:10 01/09/18 01/10/18 01/11/18 05:59 05:59 05:59 Intake Total 1999 2725 Output Total 2350 1050 Balance -350 1675 PT 24.0 SEC (12.0-15.0) H 01/10/18 04:32 INR 2.15 (0.83-1.16) H 01/10/18 04:32 - Physical Exam Constitutional: no apparent distress Eyes: PERRL Ears, Nose, Mouth, Throat: moist mucous membranes Cardiovascular: regular rate and rhythym, no murmur, rub, or gallop Respiratory: no respiratory distress Gastrointestinal: normoactive bowel sounds, soft, non-tender abdomen Genitourinary: no bladder fullness Musculoskeletal: other (right 1st 3 toes blue, cold, minimal sensation to touch. Good pulses) Neurologic: AAOx3 Psychiatric: interacting appropriately, flat affect, poor insight ICD10 Worksheet Patient Problems: Problems Problem Status Onset Arterial occlusion, lower extremity Acute DVT (deep venous thrombosis) Acute Elevated INR Acute Pulmonary emboli Acute
--- NOTE | 2018-01-10 12:22 | PDIAF ---
- Diagnosis Diagnosis: Ischemic right foot Code Status: Full Code - Medication Management Discharge Medications: Medications to Continue on Transfer Ferrous Sulfate [Ferrous Sulf 325 MG (*)] 325 mg PO DAILY 12/29/17 [Last Taken Unknown] Glucosamine Sulfate [Glucosamine Sulfate 500 MG (*)] 500 mg PO DAILY 12/29/17 [ Last Taken Unknown] Herbals/Supplements -Info Only 1 ea PO DAILY 12/29/17 [Last Taken Unknown] Latanoprost 0.005% [Xalatan 0.005% (*)] 1 drops RTEYE HS 12/29/17 [Last Taken Unknown] [place]-3 Fatty Acids [Fish Oil 1000 mg (*)] 1,000 mg PO DAILY 12/29/17 [Last Taken Unknown] Acetaminophen [Tylenol ES 500 mg (*)] 1,000 mg PO TID tab 01/10/18 [Last Taken Unknown] Clopidogrel Bisulfate [Plavix (*)] 75 mg PO DAILY tab 01/10/18 [Last Taken Unknown] Sennosides/Docusate Sodium [Senokot-S] 1 - 2 tab PO BID tab 01/10/18 [Last Taken Unknown] Warfarin Sodium [Coumadin 5MG (*)] 5 mg PO ONCE@1600 #30 tab 01/10/18 [Last Taken Unknown] oxyCODONE IR [Oxycodone Ir (*)] 5 - 10 mg PO Q6HRS PRN tab 01/10/18 [Last Taken Unknown] Additional Medication Instructions: Dose 2.5mg Coumadin today and then 5mg starting tomorrow. Discharge Medications: Refer to the Discharge Home Medication list for PRN reason. - Orders Services needed: Registered Nurse, Master Industrial Analyst, Physical Therapy, Occupational Therapy Isolation Type: None Diet Recommendation: cardiac -low fat low salt Diet Texture: Regular Texture Diet - Labs/Radiology PT/INR Date: 01/11/18 - Follow Up Care Current Providers and Referrals: NONE *PRIMARY CARE P,. [Primary Care Provider] - As per Instructions Bandar East MD [Medical Doctor] -
--- NOTE | 2018-01-10 12:37 | PDIAF ---
- Diagnosis Diagnosis: Ischemic right foot, right leg DVT Code Status: Full Code - Medication Management Discharge Medications: Medications to Continue on Transfer Ferrous Sulfate [Ferrous Sulf 325 MG (*)] 325 mg PO DAILY 12/29/17 [Last Taken Unknown] Glucosamine Sulfate [Glucosamine Sulfate 500 MG (*)] 500 mg PO DAILY 12/29/17 [ Last Taken Unknown] Herbals/Supplements -Info Only 1 ea PO DAILY 12/29/17 [Last Taken Unknown] Latanoprost 0.005% [Xalatan 0.005% (*)] 1 drops RTEYE HS 12/29/17 [Last Taken Unknown] [place]-3 Fatty Acids [Fish Oil 1000 mg (*)] 1,000 mg PO DAILY 12/29/17 [Last Taken Unknown] Acetaminophen [Tylenol ES 500 mg (*)] 1,000 mg PO TID tab 01/10/18 [Last Taken Unknown] Clopidogrel Bisulfate [Plavix (*)] 75 mg PO DAILY tab 01/10/18 [Last Taken Unknown] Sennosides/Docusate Sodium [Senokot-S] 1 - 2 tab PO BID tab 01/10/18 [Last Taken Unknown] Warfarin Sodium [Coumadin 5MG (*)] 5 mg PO DAILY16 #30 tab 01/10/18 [Last Taken Unknown] Warfarin Sodium [Coumadin 5MG (*)] 5 mg PO ONCE tab 01/10/18 [Last Taken Unknown] oxyCODONE IR [Oxycodone Ir (*)] 5 - 10 mg PO Q6HRS PRN tab 01/10/18 [Last Taken Unknown] Discharge Medications: Refer to the Discharge Home Medication list for PRN reason. - Orders Services needed: Registered Nurse, Master [place]rer, Physical Therapy, Occupational Therapy Isolation Type: None Diet Recommendation: cardiac -low fat low salt Diet Texture: Regular Texture Diet - Labs/Radiology PT/INR Date: 01/11/18 - Follow Up Care Current Providers and Referrals: Bandar East MD [Medical Doctor] - NONE *PRIMARY CARE P,. [Primary Care Provider] - As per Instructions
[2018-01-10] MEDS ORDERED: WARFARIN SODIUM 5 MG TAB PO ONE (12:45)
--- NOTE | 2018-01-10 13:30 | GDS ---
[f rep st] DISCHARGE SUMMARY DISCHARGE DIAGNOSES: 1. Right ischemic foot. 2. Right lower extremity deep vein thrombosis, acute. 3. Protein C deficiency. 4. Acute leg pain. 5. Deconditioning. 6. Black stools PROCEDURES: 01/04/2018: SFA thrombectomy, femoral-dorsalis bypass, right foot. HISTORY OF PRESENT ILLNESS: A 62-year-old male with history of protein-C deficiency, recurrent DVTs/PEs, and a history of stroke, who presented with an acute right leg DVT. He underwent catheter angiography and tPA infusion. He has had multiple episodes of thromboembolic episodes after running out of Coumadin 2 months ago when he was unable to fill his prescription due to insurance issues. He is homeless. He came in with acute pain in his distal right leg and foot. Denies any fevers, injury, or bleeding. HOSPITAL COURSE BY PROBLEM LIST: 1. Right foot ischemia: due to occluded right SFA, popliteal artery, and posterior tibial artery. He underwent tPA lysis, but that had to be stopped due to rapid loss of fibrinogen. A stent was placed. Despite this, foot became dusky. Limb was threatened, thus underwent right femoral-dorsalis bypass with vein, angio thrombectomy by Dr. East on 01/03/2018. He is to continue Plavix and Coumadin. 2. Right lower extremity DVTs: Secondary to protein C deficiency. He had been off his Coumadin for a couple months. Initiated on heparin drip and then transitioned to Coumadin. His INR is stable today. 3. Black stools: There was concern for possible melena given starting blood thinners. He states that he has been on iron for years without ever having black stools. FOBT was negative. Thus, okay to proceed with blood thinners. 4. Acute leg pain secondary to extensive clot ischemia: This has been controlled on Tylenol and oxycodone. Continue bowel regimen. DIET: Regular DISPOSITION: Patient is stable for discharge to [facility]. NEW MEDICATIONS: 1. Coumadin 5 mg daily. 2. Plavix 75 mg daily. FOLLOWUP: 1. Dr. Bandar East Tuesday01/13/18 2. Repeat INR with goal greater than 2. PHYSICAL EXAMINATION: VITAL SIGNS: Today's temperature 36.7, blood pressure 129/75, heart rate 82, respirations 20, and 98% on room air. GENERAL: Sitting up in bed, in no acute distress. HEENT: PERRLA. EOMI. Oropharynx clear. CV : Regular rate and rhythm. No murmurs, gallops, or rubs. LUNGS: Clear. ABDOMEN: Soft, nontender, nondistended. Positive bowel sounds. : No [place]. MUSCULOSKELETAL: Right surgical incision is stapled, clean, dry, and intact. No signs of infection. Has good pulses. First 3 toes on the right are cool with decreased sensation; this is unchanged from prior exams. NEURO: 2-12 intact. PSYCH: Alert and oriented x3. /[id number]/MODL MTDD
--- NOTE | 2018-01-10 13:43 | PDIAF ---
- Diagnosis Diagnosis: Ischemic right foot, right leg DVT Code Status: Full Code - Medication Management Discharge Medications: Medications to Continue on Transfer Ferrous Sulfate [Ferrous Sulf 325 MG (*)] 325 mg PO DAILY 12/29/17 [Last Taken Unknown] Glucosamine Sulfate [Glucosamine Sulfate 500 MG (*)] 500 mg PO DAILY 12/29/17 [ Last Taken Unknown] Herbals/Supplements -Info Only 1 ea PO DAILY 12/29/17 [Last Taken Unknown] Latanoprost 0.005% [Xalatan 0.005% (*)] 1 drops RTEYE HS 12/29/17 [Last Taken Unknown] [place]-3 Fatty Acids [Fish Oil 1000 mg (*)] 1,000 mg PO DAILY 12/29/17 [Last Taken Unknown] Acetaminophen [Tylenol ES 500 mg (*)] 1,000 mg PO TID tab 01/10/18 [Last Taken Unknown] Clopidogrel Bisulfate [Plavix (*)] 75 mg PO DAILY tab 01/10/18 [Last Taken Unknown] Sennosides/Docusate Sodium [Senokot-S] 1 - 2 tab PO BID tab 01/10/18 [Last Taken Unknown] Warfarin Sodium [Coumadin 5MG (*)] 5 mg PO DAILY16 #30 tab 01/10/18 [Last Taken Unknown] Warfarin Sodium [Coumadin 5MG (*)] 5 mg PO ONCE tab 01/10/18 [Last Taken Unknown] oxyCODONE IR [Oxycodone Ir (*)] 5 - 10 mg PO Q6HRS PRN tab 01/10/18 [Last Taken Unknown] Additional Medication Instructions: Dose 2.5mg Coumadin today and then 5mg starting tomorrow. Discharge Medications: Refer to the Discharge Home Medication list for PRN reason. - Orders Services needed: Registered Nurse, Master Graduate Assistant, Physical Therapy, Occupational Therapy Isolation Type: None Diet Recommendation: cardiac -low fat low salt Diet Texture: Regular Texture Diet - Labs/Radiology PT/INR Date: 01/11/18 - Follow Up Care Current Providers and Referrals: NONE *PRIMARY CARE P,. [Primary Care Provider] - As per Instructions Bandar East MD [Medical Doctor] - (Tuesday01/13/18)
[2018-01-10] MEDS: DIPHENHYDRAMINE CREAM TP PRN (14:32)
--- NOTE | 2018-01-10 16:42 | ASDISCHSUM ---
Discharge Information Plan Status:SNF Medically Cleared to Leave:01/10/2018 Discharge Date:01/10/2018 02:44 PM CM D/C Disposition: ADT D/C Disposition:Halfway Facility Projected Discharge Date:01/10/2018 11:00 AM Transportation at D/C: Discharge Delay Reason: Follow-Up Date:01/10/2018 11:00 AM Discharge Slot: Final Diagnosis: Placement Information Referral Type:*Fpc/SNF Referral ID:[id number] Provider Name:Megan Freire/SUE Alfaro Address 1:[address] [facility] Phone Number: Address 2: Fax Number: Liza:Megan Selection Factors: State:[place] Patient Contact Information Contact Name:CHELO Relationship: Address: Home Phone: Work Phone: Liza: Agata Phone: [facility] Code: Email: Financial Information [facility] Primary Plan Number:[id number] Secondary Plan Desc: Secondary Plan Number: Assessment Information [facility] CM Progress Note CM Note CM Note Notes: Patient is a very pleasant, homeless gentleman admitted for DVT of RLL. He has been off his Coumadin for over 6 weeks and has not followed up with his PCP, Dr. Seth Ram since July. Patient tells me that he lost his Medicaid at that time due to receiving social security income. Patient has enrolled in health care through [employer] [facility] and tells me that his insurance with [employer] starts today, December 29. Patient has lived in [place] for the past 23 years, 3 of which he has been homeless. He has some familiarity with the [employer] program for homeless services, but has not completed the coordinated entry program. He tells me that he is not seeking "halfway" services, but is interested in more information I have contacted [facility] and for Dr. Ram re patient's admission. I discussed the coordinated entry program with the patient, including CM services and other community resources. Pamphlets and contact information provided at this time. Date Signed: 12/29/2017 10:08 AM Electronically Signed By:Yennifer Laurent RN LACE LACE Acuity / Level of Answers: Yes Care: Did the patient have an inpatient admission? Comorbidities - select Answers: Other Notes: coagulopathy all that apply # of Emergency department Answers: 1-2 visits in the last 6 months Social determinants Answers: Homelessness (street, halfway) Score: 8 Date Signed: 12/29/2017 11:16 AM Electronically Signed By:Yennifer Laurent RN [facility] CM Progress Note CM Note CM Note Notes: Patient's foot is worse today so he is going for a mechanical evacutation but will most likely need to go back to the OR per Dr. East. Dr. Ceja requests assist with making sure patient has an ongoing supply of coumadin, getting his INR's tested and having a Dr he is following up with at d/c. Patient has been agitated and anxious most likely due to being in fear of his medical illness. Plan to meet with patient when he is more medically stable to begin making these d/c arrangements. CM will follow. Date Signed: 12/30/2017 11:53 AM Electronically Signed By:Rosa Mar LCSW [facility] JOSSELINE Progress Note CM Note CM Note Notes: Chart reviewed, Per surgery his lower extremity viability is still threatened. Met with patient who reveals he is homeless and attempted to secure housing in 2016 to no avail. He does not stay at halfway and will not disclose where he stays but he is unable to keep warm. He will need placement if he requires surgery and needs follow up. Will ask Complex care to assist with this complex patient CM to follow. Date Signed: 01/02/2018 01:00 PM Electronically Signed By:Jessie Cee RN [facility] CM Progress Note CM Note CM Note Notes: Stephanie from [facility] here to meet with pt. CM discussed with pt prior and he is receptive to a SNF stay and meeting with her. It is still not known if pt will need a BKA but he thinks at least a toe amputation may be needed. Pt hopeful he can have BM SW assist him with housing needs while he is at the SNF since his mode of transportation is by bicycle and he is homeless. Stephanie to check pt's insurance to see what his coverage is. Pt to surgery this afternoon and will transfer to ICU. CM will continue to follow for d/c needs. Date Signed: 01/03/2018 04:59 PM Electronically Signed By:JUSTIN Lara [facility] CM Progress Note CM Note CM Note Notes: Spoke with Stephanie from [facility] who states they have accepted patient for their rehab program. She did check his insurance and he has 100 days of coverage. Patient is recovering from surgery yesterday. Will keep Stephanie updated on his progress. CM will follow. Date Signed: 01/04/2018 12:30 PM Electronically Signed By:Rosa Mar LCSW [facility] Progress Note CM Note CM Note Notes: Spoke with patient's nurse who states it may be 3-4 more days before patient is ready for rehab. Notified Stephanie at [facility] who will need to hear from on Tuesday as she needs to call [employer] for his auth number prior to d/c. Otherwise,d/c plan remains patient going to [facility] for SNF rehab. CM will follow. Date Signed: 01/05/2018 01:34 PM Electronically Signed By:Rosa Mar LCSW [facility] Progress Note CM Note CM Note Notes: Spoke w/RN, pt not yet ready for dc per MD, in any case pt cant's dc until Tuesday because Stephanie at [facility] needs to call [employer] for authorization. Updates sent to DC Plan: [facility] Date Signed: 01/07/2018 10:54 AM Electronically Signed By:Elizabeth Davis RN [facility] Progress Note CM Note CM Note Notes: [facility] [employer] [facility] for patient. Dr. Silvestre's note indicates patient will be ready for d/c tomorrow or Tuesday. CM will follow. Date Signed: 01/09/2018 02:06 PM Electronically Signed By:Rosa Mar LCSW Case Management Discharge Plan Note Case Management Discharge Discharge Order Complete? Answers: Yes Patient to Obtain Answers: Other Notes: [facility] Medications Transportation Arranged Answers: Other Notes: [facility] Transport will Pick (Date 01/10/2018 12:00 AM & Time) Faxed Final Orders Answers: Yes Notes: [facility] Agency/Facility Transfer Answers: Yes Notes: [facility] Report Printed & Faxed to Receiving Agency Discharge Comments Notes: Patient is d/c'ing to [facility] today. [facility] 2:30. Discharge orders and transfer of care summary were allscripted to [facility]. Patient will need their moving van driver to help him with his bicycle which is here in the hospital parking lot. Stephanie approved it being transported with patient in their van. No further d/c needs. Date Signed: 01/10/2018 01:20 PM Electronically Signed By:Rosa Mar LCSW Intervention Information
--- NOTE | 2018-01-15 17:49 | GOP ---
[f rep st] OPERATIVE REPORT DATE OF OPERATION: 01/03/2018 SURGEON: Bandar East MD BARREL POLISHER INSIDE: Ansley Carpio P.A.-C. PREOPERATIVE DIAGNOSIS: Severe limb-threatening ischemia of the right leg. POSTOPERATIVE DIAGNOSIS: Severe limb-threatening ischemia of the right leg. PROCEDURE PERFORMED: 1. Right femoral dorsalis pedis bypass with reverse saphenous vein graft and operative angiography. 2. Thrombectomy of popliteal and superficial femoral artery. 3. Right femoral-popliteal bypass actually this should be. 4. Repair of the common femoral artery angio site. 5. Full-thickness skin graft to the right foot. FINDINGS: The patient was found to have very minimal runoff to his right foot. However on angiograp hy, he demonstrated a patent dorsalis pedis artery at the ankle level and into the foot, with some ru noff to his toes. His SFA was occluded at his stents, which had previously been placed, but we were able to re-establish strong inflow temporarily. However, that inflow failed and it was elected to pr oceed with a femoral-popliteal bypass as well. ESTIMATED BLOOD LOSS: Less than 300 mL. There were no complications. He was taken to the recovery room in satisfactory condition. DESCRIPTION OF PROCEDURE: The patient was taken to the operating room where he received satisfactory general endotracheal anesthesia. He was placed in the supine position and prepped and draped in the usual sterile fashion. A short incision was made in the distal thigh and dissection was carried down into Chano's canal. T he proximal popliteal artery was identified, dissected free and controlled with vessel loops. It yaw eared to be relatively soft at that point, but with poor inflow. The artery was isolated with vessel loops. A short incision was made and an angiocatheter was introduced and distal angiogram was perfo rmed. It showed the popliteal artery being totally occluded with only geniculate runoff to the lower leg. However, as noted above, the anterior tibial leading into the dorsalis pedis artery was patent distally. It should be noted the patient had been already systemically heparinized. Thrombectomy catheters were passed distally, with not much improvement in the outflow through the pop liteal artery. Passing them cephalad restored a very strong flow from the proximal SFA. The greater saphenous vein was then dissected free for a large length of the leg until the vein becam e not usable. A short vertical incision was made over the dorsalis pedis artery which was present an d dissected free for several centimeters. It was encircled with a vessel loop and appeared to be amita te patent. The vein graft was passed through the popliteal space and subfascially down to the foot, and an end-to-side anastomosis was made with a reverse saphenous vein to the dorsalis pedis artery us ing a running 7-0 Prolene suture. Angiography was done showing good flow into the foot. The proximal anastomosis was then done in a [id number] fashion to the proximal popliteal artery. T his was done with a running 5-0 suture. Flow was first re-established through the [place] popliteal a rtery and then through the bypass graft. However, the flow was not great on the inflow side, and it appeared that the stent had rethrombosed. After having cleaned this out toward the radial, it was el ected to improve the inflow with a femoral-popliteal bypass around this stented segment. A vertical incision was made in the groin and dissection carried down through the common femoral, pro margarita femoris and superficial femoral arteries, which were all isolated and controlled with vessel lo ops. After the patient was heparinized, a proximal anastomosis was done to the common femoral artery with a 6 mm [place]Shane graft. This was tunneled subsartorially back down to the Chano's canal. The proximal popliteal artery was then incised, and an end-to-side anastomosis was made to the [place]ane g raft again with a running Hemashield 7 suture. Flow was reestablished with a palpable pedal pulse an d good flow in the graft. In the groin area, there was a large residual hematoma. This had been entered in the very proximal c ommon femoral artery. An angiogram catheter site was exposed and it was bleeding rather profusely. This was isolated, cleaned out and then closed with a 4-0 Prolene mattress suture. He continued to h ave good flow down the leg into the superficial femoral popliteal bypass graft. Wounds were all irrigated. Hemostasis was assured. Heparin was not reversed. Wounds were closed wi th 2-0 Vicryl for the fascia, 3-0 Vicryl for the subcu and skin leo for the skin. The wound over the distal anastomosis, however, could not be closed directly. A full-thickness skin graft was take n of the groin area of the left thigh. The graft was defatted and it was sutured in place over the a nastomosis in the distal right leg. This was done with interrupted 3-0 Prolene and some skin leo , and a bulky dressing was placed over the skin graft site. The donor site was closed by undermining the skin edges and closing that with a running 3-0 Vicryl suture for the subcu and skin leo for the skin. He tolerated the procedure amazingly well. /[id number]/MODL
== END 2018-01-10 14:44 | DRG 271 ==
LOC: F2N 12:15 → F1N 01-02 06:56 → F2N 01-03 12:55 → F3E 01-05 15:51
PROVIDERS: ADMIT Internal Medicine; ATTEND Internal Medicine
DX: I74.3 Embolism and thrombosis of arteries of the lower extremities (principal); D68.59 Other primary thrombophilia; I82.411 Acute embolism and thrombosis of right femoral vein; I82.431 Acute embolism and thrombosis of right popliteal vein; T45.516A Underdosing of anticoagulants, initial encounter; Z86.711 Personal history of pulmonary embolism; Z86.718 Personal history of other venous thrombosis and embolism; Z59.0 Homelessness
CPT/HCPCS: 82947-QW; 85520-90; 97110-GP; 97116-GP; 97161-GP; 97164-GP; 97165-GO; 97168-GO; 97530-GO; 97530-GP; 97535-GO; C1725; C1757; C1758; C1768; C1769; C1876; C1892; C1894; J0690; J1100; J1170; J1644; J2250; J2270; J2310; J2370; J2440; J2550; J2704; J2997; J3010; J3360; Q9961; Q9967

== ENCOUNTER 2018-02-14 10:54 | Inpatient (IN) | payer SELFPAY ==
[~2018-02-14 10:54] MED LIST: BUPIVACAINE 0.5% 30 ML SDV ONE; MINERAL OIL 10 ML VIAL ONE; THROMBIN (BOVINE) 20,000 UNIT SPRAY TP ONE; ceFAZolin 2 GM/SWFI 2 GM/20 ML SYR IVP ONE
[2018-02-14] MEDS ORDERED: LR 1,000 ML IV ONE (13:58)
[2018-02-14] MEDS ORDERED: LIDOCAINE 1% 2 ML INJ ID PRN (13:58)
[2018-02-14] MEDS ORDERED: ceFAZolin 2 GM/SWFI 20 ML SYR IVP ONE (14:28)
[2018-02-14 14:32] LABS: PLATELET COUNT 231 10^3/uL (150-400)
--- NOTE | 2018-02-14 14:39 | CPEKG ---
Heart Rate: 75 RR Interval: 800 P-R Interval: 176 QRSD Interval: 100 QT Interval: 396 QTC Interval: 443 P [place]: 79 QRS [place]: 71 T Wave [place]: 56 EKG Severity - OTHERWISE NORMAL ECG - EKG Impression: SINUS RHYTHM EKG Impression: VENTRICULAR PREMATURE COMPLEX -- New since December 29, 2017 Electronically Signed By: Ildefonso Babin 14-Feb-2018 15:20:31
[2018-02-14 14:42] LABS: INR 1.76 (0.83-1.16); PROTIME(PATIENT) 20.6 SEC (12.0-15.0)
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
[2018-02-14] MEDS ORDERED: fentaNYL 250 MCG/5 ML INJ ONE (14:54)
[2018-02-14] MEDS ORDERED: PROPOFOL/EMULSION 500 MG/50 ML BOTTLE IV ONE (14:54)
[2018-02-14] MEDS ORDERED: MIDAZOLAM 2 MG/2 ML VIAL ONE (14:55)
[2018-02-14] MEDS ORDERED: ROCURONIUM 50 MG/5 ML VIAL ONE (14:57)
[2018-02-14] MEDS ORDERED: GLYCOPYRROLATE 0.2 MG/1 ML VIAL ONE ×3 (14:57→16:39)
[2018-02-14] MEDS ORDERED: DEXAMETHASONE 4 MG/ML VIAL ONE (15:50)
[2018-02-14] MEDS ORDERED: HYDROmorphONE/DILAUDID 2 MG/ML INJ ONE (16:30)
[2018-02-14] MEDS ORDERED: NEOSTIGMINE METHYLSULFATE 3 MG/3 ML SYR ONE (16:39)
[2018-02-14] MEDS ORDERED: ONDANSETRON 4 MG/2 ML VIAL IVP PRN ×2 (16:54→17:07)
[2018-02-14] MEDS ORDERED: NS W/ 20 KCl/L 1,000 ML IV SCH (17:00)
[2018-02-14] MEDS ORDERED: fentaNYL 100 MCG/2 ML INJ IVP PRN (17:07)
[2018-02-14] MEDS ORDERED: HYDROmorphONE/DILAUDID 2 MG/ML INJ IVP PRN (17:07)
[2018-02-14] MEDS ORDERED: NALOXONE HCL 0.4 MG/ML INJ IVP PRN (17:07)
[2018-02-14] MEDS ORDERED: METOCLOPRAMIDE 10 MG/2 ML VIAL IVP PRN (17:07)
[2018-02-14] MEDS ORDERED: DIAZEPAM 5 MG/ML 1 ML SYR IVP PRN (17:07)
[2018-02-14] MEDS ORDERED: LABETALOL HCL 5 MG/ML 20 ML MDV IVP PRN (17:07)
--- NOTE | 2018-02-14 17:11 | POSTANESTH ---
Post Anesthetic Evaluation Cardiovascular Status: Normal, Stable Respiratory Status: Normal, Stable Level of Consciousness/Mental Status: Can Participate in Eval Pain Control: Adequate, Prn Tx Ordered Nausea/Vomiting Control: Adequate, Prn Tx Ordered Complications Possibly Related to Anesthesia: None Noted
--- NOTE | 2018-02-14 17:15 | POSTOPPROG ---
Post Op Note Date of Operation: 02/14/18 Surgeon: Bandar East [place] Manager: Ansley Carpio Anesthesiologist: Rebecca Yung Anesthesia: GET(General Endotracheal) Pre-op Diagnosis: ischemic toes, failing skin graft, s/p fem-DP arterial bypass graft Post-op Diagnosis: same, with some graft take Procedure: ray amputation R toes 1-3, graft debridment, STSG c vac placement Inf/Abcess present in the surg proc area at time of surgery?: No EBL: Minimal Complications: none
[2018-02-14] MEDS ORDERED: ZOLPIDEM TARTRATE 5 MG TAB PO PRN (20:52)
[2018-02-14] MEDS: LATANOPROST 0.005% 2.5 ML OPHT DROPS RTEYE SCH (21:47)
[2018-02-14] MEDS: DOCUSATE SODIUM 100 MG CAP PO SCH (21:48)
[2018-02-14] MEDS: WARFARIN SODIUM 5 MG TAB PO SCH (21:48)
[2018-02-15 05:12] LABS: PLATELET COUNT 245 10^3/uL (150-400)
[2018-02-15] MEDS: GLUCOSAMINE SULF 500 MG CAP PO SCH (09:48)
[2018-02-15] MEDS: CLOPIDOGREL BISULFATE 75 MG TAB PO SCH (09:48)
[2018-02-15] MEDS: DOCUSATE SODIUM 100 MG CAP PO SCH ×2 (09:48→23:29)
[2018-02-15] MEDS: PANTOPRAZOLE SODIUM 40 MG TAB PO SCH (09:48)
[2018-02-15] MEDS: FERROUS SULFATE 325 MG TAB PO SCH (09:48)
--- NOTE | 2018-02-15 12:36 | ASMTCMCOM ---
CM Note CM Note Notes: Pt admitted to hospital for planned surgery of right toes. Pt resides currently at [facility], per Marie from [facility], it is unclear if pt had a Medicaid yaw started there. Previous insurance listed is not active d/t non payment. Anticipate pt will dc back to when medically stable. DC Plan: [facility]/ [facility] Date Signed: 02/15/2018 12:36 PM Electronically Signed By:Elizabeth Davis RN
--- NOTE | 2018-02-15 16:49 | PDMN ---
Medical Necessity Medical necessity: [id number]: surgical wound care: amputation of R Great, 2nd, 3rd toes, STSG with wound vac, graft debridement, inpt care for post op management, care and tx of wound care >24 hours - pt residing at [facility].
[2018-02-15] MEDS: WARFARIN SODIUM 4 MG TAB PO SCH (17:40)
--- NOTE | 2018-02-15 17:57 | SOAPPROG ---
SOAP Progress Note Assessment/Plan: Assessment/Plan: 62 Y M recent fem-DP arterial bypass graft c ischemic toes, s/ p amputation of toes 1-3 with STSG to assist in closure, and debridement of dorsal surface skin graft with new STSG and wound vac placement. Vac to good suction. Continue wound vac for STSG protection for minimum 5 days. Currently on bedrest but ok to add pivot to bedside commode. Restart coumadin today. (Hx DVT, PE; also helps graft patency). No further VTE ppx. Dispo: will likely need to stay for graft protection. Previous failure likely 2/ 2 noncompliance with activity instructions despite being at SNF. Graft failure potentially dangerous for him due to underlying vascular anastomosis and massive bleeding risk. Should not need wound vac after graft reveal. S: wants to use bedside commode. no pain. O: alert, nad ncat chest no wob rrr abd soft ext: graft pulse palpable. wounds well dressed and vac to suction. 02/15/18 17:57 Objective: Vital Signs Temp Pulse Resp BP Pulse Ox 36.8 C 70 16 111/72 95 02/15/18 16:00 02/15/18 16:00 02/15/18 16:00 02/15/18 16:00 02/15/18 16:00 Laboratory Results 02/15/18 04:40 02/15/18 04:40 02/14/18 02/15/18 02/16/18 05:59 05:59 05:59 Intake Total 2500 Output Total 1980 Balance 520 PT 20.6 SEC (12.0-15.0) H 02/14/18 14:26 INR 1.76 (0.83-1.16) H 02/14/18 14:26 ICD10 Worksheet Patient Problems: Problems Problem Status Onset Arterial occlusion, lower extremity Acute DVT (deep venous thrombosis) Acute Elevated INR Acute Pulmonary emboli Acute
[2018-02-15] MEDS: OXYCODONE/APAP 5/325 TAB PO PRN (19:26)
[2018-02-15] MEDS: LATANOPROST 0.005% 2.5 ML OPHT DROPS RTEYE SCH (23:30)
[2018-02-15] MEDS: CEPACOL LOZENGE PO PRN (23:30)
[2018-02-16] MEDS: CEPACOL LOZENGE PO PRN (05:16)
[2018-02-16] MEDS: FERROUS SULFATE 325 MG TAB PO SCH (09:18)
[2018-02-16] MEDS: CLOPIDOGREL BISULFATE 75 MG TAB PO SCH (09:18)
[2018-02-16] MEDS: GLUCOSAMINE SULF 500 MG CAP PO SCH (09:18)
[2018-02-16] MEDS: PANTOPRAZOLE SODIUM 40 MG TAB PO SCH (09:18)
[2018-02-16] MEDS: DOCUSATE SODIUM 100 MG CAP PO SCH ×2 (09:18→23:32)
[2018-02-16] MEDS: OXYCODONE/APAP 5/325 TAB PO PRN ×3 (09:18→23:32)
--- NOTE | 2018-02-16 16:31 | ASMTCMCOM ---
CM Note CM Note Notes: CM spoke with Stephanie from [facility], they have started the Medicaid application. Pt does not have any other insurance. [facility] willing to take pt back, per MD, pt will be here for another 5 days for healing of skin graft. He currently has a wound vac but will not have one at pr. DC Plan: [facility]/ [facility] Date Signed: 02/16/2018 04:30 PM Electronically Signed By:Elizabeth Davis RN
[2018-02-16] MEDS: WARFARIN SODIUM 5 MG TAB PO SCH (17:34)
[2018-02-16] MEDS: LATANOPROST 0.005% 2.5 ML OPHT DROPS RTEYE SCH (23:32)
[2018-02-17 05:23] LABS: INR 1.61 (0.83-1.16); PROTIME(PATIENT) 19.3 SEC (12.0-15.0)
[2018-02-17] MEDS: FERROUS SULFATE 325 MG TAB PO SCH (08:57)
[2018-02-17] MEDS: PANTOPRAZOLE SODIUM 40 MG TAB PO SCH (08:57)
[2018-02-17] MEDS: DOCUSATE SODIUM 100 MG CAP PO SCH ×2 (08:57→22:26)
[2018-02-17] MEDS: CLOPIDOGREL BISULFATE 75 MG TAB PO SCH (08:57)
[2018-02-17] MEDS: GLUCOSAMINE SULF 500 MG CAP PO SCH (08:57)
[2018-02-17] MEDS: OXYCODONE/APAP 5/325 TAB PO PRN ×2 (09:06→17:38)
--- NOTE | 2018-02-17 17:35 | SOAPPROG ---
SOAP Progress Note Assessment/Plan: Assessment: 62 Y M recent fem-DP arterial bypass graft c ischemic toes, s/p amputation of toes 1-3 with STSG to assist in closure, and debridement of dorsal surface skin graft with new STSG and wound vac placement S: Concerned about bleeding from STSG site. Also c/o phantom pain in region of amputated toes. O: Alert Afebrile RRR No increase WOB RLE: anterior thigh dressing partially stained with blood, no surrounding erythema or induration. Foot with wound vac to suction. + graft pulse. Plan: Continue bedrest for a full 5 days. Plan for wound vac change on Tuesday. Discussed expectations with STSG site. No concern for excess bleeding or infection. 02/17/18 17:30 Objective: Vital Signs Temp Pulse Resp BP Pulse Ox 36.7 C 72 16 117/68 93 02/17/18 16:00 02/17/18 16:00 02/17/18 16:00 02/17/18 16:00 02/17/18 16:00 Laboratory Results 02/15/18 04:40 02/15/18 04:40 02/16/18 02/17/18 02/18/18 05:59 05:59 05:59 Intake Total 1840 700 800 Output Total 5375 484 0032 Balance 40 -50 -650 PT 19.3 SEC (12.0-15.0) H 02/17/18 04:25 INR 1.61 (0.83-1.16) H 02/17/18 04:25 ICD10 Worksheet Patient Problems: Problems Problem Status Onset Arterial occlusion, lower extremity Acute DVT (deep venous thrombosis) Acute Elevated INR Acute Pulmonary emboli Acute
[2018-02-17] MEDS: WARFARIN SODIUM 4 MG TAB PO SCH (17:38)
[2018-02-17] MEDS: POLYETHYLENE GLYCOL 3350 17 GM PKT PO SCH (22:26)
[2018-02-17] MEDS: LATANOPROST 0.005% 2.5 ML OPHT DROPS RTEYE SCH (22:27)
[2018-02-18] MEDS: CLOPIDOGREL BISULFATE 75 MG TAB PO SCH (08:40)
[2018-02-18] MEDS: GLUCOSAMINE SULF 500 MG CAP PO SCH (08:40)
[2018-02-18] MEDS: FERROUS SULFATE 325 MG TAB PO SCH (08:40)
[2018-02-18] MEDS: PANTOPRAZOLE SODIUM 40 MG TAB PO SCH (08:40)
[2018-02-18] MEDS: DOCUSATE SODIUM 100 MG CAP PO SCH ×2 (08:40→21:55)
[2018-02-18] MEDS: POLYETHYLENE GLYCOL 3350 17 GM PKT PO SCH (08:41)
[2018-02-18] MEDS ORDERED: GABAPENTIN 300 MG CAP PO ONE (11:02)
--- NOTE | 2018-02-18 11:04 | SOAPPROG ---
SOAP Progress Note Assessment/Plan: Assessment: 62 Y M recent fem-DP arterial bypass graft c ischemic toes, s/p amputation of toes 1-3 with STSG to assist in closure, and debridement of dorsal surface skin graft with new STSG and wound vac placement S: Concerned about bleeding from STSG site. Also c/o phantom pain in region of amputated toes. O: Alert Afebrile RRR No increase WOB RLE: anterior thigh dressing partially stained with blood, no surrounding erythema or induration. Foot with wound vac to suction. + graft pulse. Plan: Continue bedrest for a full 5 days. Plan for wound vac change on Tuesday. Discussed expectations with STSG site. No concern for excess bleeding or infection. 02/17/18 17:30 02/18/18 11:03 Stable. Continue bedrest until tomorrow. Will start gabapentin for nerve pain. Seen with Dr. Perez. Objective: Vital Signs Temp Pulse Resp BP Pulse Ox 36.6 C 70 14 119/76 92 02/18/18 07:43 02/18/18 07:43 02/18/18 07:43 02/18/18 07:43 02/18/18 07:43 Laboratory Results 02/15/18 04:40 02/15/18 04:40 02/17/18 02/18/18 02/19/18 05:59 05:59 05:59 Intake Total 700 800 Output Total 750 2350 700 Balance -50 -1550 -700 PT 19.3 SEC (12.0-15.0) H 02/17/18 04:25 INR 1.61 (0.83-1.16) H 02/17/18 04:25 ICD10 Worksheet Patient Problems: Problems Problem Status Onset Arterial occlusion, lower extremity Acute DVT (deep venous thrombosis) Acute Elevated INR Acute Pulmonary emboli Acute
[2018-02-18] MEDS: GABAPENTIN 300 MG CAP PO SCH (11:23)
[2018-02-18] MEDS: OXYCODONE/APAP 5/325 TAB PO PRN (11:23)
[2018-02-18] MEDS: WARFARIN SODIUM 5 MG TAB PO SCH (16:54)
[2018-02-18] MEDS: LATANOPROST 0.005% 2.5 ML OPHT DROPS RTEYE SCH (21:55)
[2018-02-19 05:20] LABS: INR 1.36 (0.83-1.16); PROTIME(PATIENT) 16.9 SEC (12.0-15.0)
[2018-02-19] MEDS: DOCUSATE SODIUM 100 MG CAP PO SCH ×2 (08:00→22:19)
[2018-02-19] MEDS: GABAPENTIN 300 MG CAP PO SCH (08:01)
[2018-02-19] MEDS: GLUCOSAMINE SULF 500 MG CAP PO SCH (08:01)
[2018-02-19] MEDS: PANTOPRAZOLE SODIUM 40 MG TAB PO SCH (08:01)
[2018-02-19] MEDS: CLOPIDOGREL BISULFATE 75 MG TAB PO SCH (08:01)
[2018-02-19] MEDS: FERROUS SULFATE 325 MG TAB PO SCH (08:01)
[2018-02-19] MEDS: POLYETHYLENE GLYCOL 3350 17 GM PKT PO SCH (09:05)
--- NOTE | 2018-02-19 09:21 | SOAPPROG ---
SOAP Progress Note Assessment/Plan: Assessment: 62 Y M recent fem-DP arterial bypass graft c ischemic toes, s/p amputation of toes 1-3 with STSG to assist in closure, and debridement of dorsal surface skin graft with new STSG and wound vac placement S: Concerned about bleeding from STSG site. Also c/o phantom pain in region of amputated toes. O: Alert Afebrile RRR No increase WOB RLE: anterior thigh dressing partially stained with blood, no surrounding erythema or induration. Foot with wound vac to suction. + graft pulse. Plan: Continue bedrest for a full 5 days. Plan for wound vac change on Tuesday. Discussed expectations with STSG site. No concern for excess bleeding or infection. 02/17/18 17:30 02/18/18 11:03 Stable. Continue bedrest until tomorrow. Will start gabapentin for nerve pain. Seen with Dr. Perez. 02/19/18 09:21 Reports that nerve pain is improved after starting gabapentin. Plan for wound vac change tomorrow. +graft pulse. Objective: Vital Signs Temp Pulse Resp BP Pulse Ox 36.4 C 68 16 126/78 H 96 02/19/18 08:00 02/19/18 08:00 02/19/18 08:00 02/19/18 08:00 02/19/18 08:00 Laboratory Results 02/19/18 05:00 02/15/18 04:40 02/18/18 02/19/18 02/20/18 05:59 05:59 05:59 Intake Total 800 300 Output Total 2350 2024 Balance -1550 -1725 PT 16.9 SEC (12.0-15.0) H 02/19/18 05:00 INR 1.36 (0.83-1.16) H 02/19/18 05:00 ICD10 Worksheet Patient Problems: Problems Problem Status Onset Arterial occlusion, lower extremity Acute DVT (deep venous thrombosis) Acute Elevated INR Acute Pulmonary emboli Acute
--- NOTE | 2018-02-19 09:43 | GOP ---
[f rep st] OPERATIVE REPORT DATE OF OPERATION: 02/14/2018 SURGEON: Bandar East MD ANESTHESIOLOGIST: Dr. Yung. 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 POSTOPERATIVE DIAGNOSIS: Gangrene of the toes with peripheral ischemia. PROCEDURE PERFORMED: Ray amputation of the right 1st toe, proximal transphalangeal amputations of the right 2nd and 3rd toes, debridement of the right foot at the femoral dorsalis pedis bypass site with split-thickness skin graft, and a split-thickness skin graft to the 1st toe with placement of the wound VAC. FINDINGS: The patient was found to have adequate blood flow through the fem dorsalis pedis bypass. The tissue over the dorsalis pedis anastomosis was somewhat necrotic requiring some debridement. Blood supply at the amputation levels appeared to be quite adequate. ESTIMATED BLOOD LOSS: Negligible DESCRIPTION OF PROCEDURE: The patient was taken to the operating room where he received satisfactory general endotracheal anesthesia by Dr. Yung, placed in the supine position, prepped and draped in the usual sterile fashion. A fishmouth type incision was made over the proximal phalanx of the right 2nd and 3rd toes. Dissection was then extended down through the soft tissue to the bone , which was divided with a bone cutter and then smoothed off with a rasp. Those wounds were closed with interrupted 3-0 nylon suture after obtaining hemostasis. Wounds were infiltrated with 0.5% Marcaine. A ray amputation was then done of the great toe, debriding all tissue and dividing the 1st metatarsal with an electric saw. This was smoothed off and trimmed back to allow wound closure. The wound was then closed where possible with the posterior and medial flaps with interrupted 3-0 Prolene suture. The remainder of the wound was then covered with a split-thickness skin graft which was harvested from the anterior left thigh and was placed over the open portions of the wound and secured in place with skin leo. Attention was then turned to the dorsalis pedis site. The tissue over that was debrided back to viable secured tissue without compromise of the bypass, a portion of the split- thickness skin graft was then placed over that site as well and secured in place with skin leo. Both wounds were then dressed with Xeroform gauze and a wound VAC. The donor site was dressed with Mepitel dressing after being infiltrated with 0.5% Marcaine and sprayed with some topical thrombin. He tolerated the procedure well. He was taken to the recovery room in good condition. There were no complications. /[id number]/MODL [id number]
--- NOTE | 2018-02-19 15:44 | ASMTCMCOM ---
CM Note CM Note Notes: Patient here for surgery of 1-3 toes and debridement of R foot, skin graft and wound vac, Gabapentin for nerve pain. will return to [facility] on discharge. Date Signed: 02/19/2018 03:43 PM Electronically Signed By:Mary Car LCSW
[2018-02-19] MEDS ORDERED: WARFARIN SODIUM 7.5 MG TAB PO ONE (16:00)
[2018-02-19] MEDS: OXYCODONE/APAP 5/325 TAB PO PRN (16:03)
[2018-02-19] MEDS: LATANOPROST 0.005% 2.5 ML OPHT DROPS RTEYE SCH (22:20)
[2018-02-19] MEDS: ACETAMINOPHEN 325 MG TAB PO PRN (22:22)
[2018-02-20 05:06] LABS: INR 1.47 (0.83-1.16)
[2018-02-20] MEDS: OXYCODONE/APAP 5/325 TAB PO PRN ×2 (10:03→17:11)
[2018-02-20] MEDS: DOCUSATE SODIUM 100 MG CAP PO SCH ×2 (10:03→22:08)
[2018-02-20] MEDS: CLOPIDOGREL BISULFATE 75 MG TAB PO SCH (10:03)
[2018-02-20] MEDS: GABAPENTIN 300 MG CAP PO SCH (10:03)
[2018-02-20] MEDS: GLUCOSAMINE SULF 500 MG CAP PO SCH (10:03)
[2018-02-20] MEDS: FERROUS SULFATE 325 MG TAB PO SCH (10:06)
[2018-02-20] MEDS: POLYETHYLENE GLYCOL 3350 17 GM PKT PO SCH (10:07)
[2018-02-20] MEDS: PANTOPRAZOLE SODIUM 40 MG TAB PO SCH (10:07)
[2018-02-20] MEDS: HYDROmorphone HCL/NS 0.5 MG/ML SYR IVP PRN (10:38)
--- NOTE | 2018-02-20 11:54 | SOAPPROG ---
MILAN Progress Note Assessment/Plan: Assessment/Plan: 62 Y M recent fem-DP arterial bypass graft c ischemic toes, s/ p amputation of toes 1-3 with STSG to assist in closure, and debridement of dorsal surface skin graft with new STSG and wound vac placement. Removed vac. Underlying grafts ok. Dorsal foot graft ~40% take, distal graft near toe wounds about 70%. Suture line and donor site clean. Dressings changed. Discussed activity and need for graft protection in detail. He wants to be able to ride his bike and walk around town. Explained that the graft is very fragile. He will need to discuss this further with Dr. East. Arterial graft is patent. Coumadin restarted and now on plavix. Dispo: pending. Has stayed this far for graft protection. Now that vac is off will need to d/w Dr. East about going back to [facility]. Previous failure likely 2/2 noncompliance with activity instructions despite being at [facility]. Graft failure potentially dangerous for him due to underlying vascular anastomosis and massive bleeding risk. S: feels great. lots of "spunk." eating well. 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 O: alert, nad ncat chest no wob rrr abd soft ext: graft pulse palpable. skin graft per above. 02/20/18 11:50 Objective: Vital Signs Temp Pulse Resp BP Pulse Ox 36.6 C 69 18 131/78 H 96 02/20/18 07:25 02/20/18 07:25 02/20/18 07:25 02/20/18 07:25 02/20/18 07:25 Laboratory Results 02/19/18 05:00 02/15/18 04:40 02/19/18 02/20/18 02/21/18 05:59 05:59 05:59 Intake Total 300 Output Total 2024 300 550 Balance -1725 -300 -550 PT 18.0 SEC (12.0-15.0) H 02/20/18 04:38 INR 1.47 (0.83-1.16) H 02/20/18 04:38 ICD10 Worksheet Patient Problems: Problems Problem Status Onset Arterial occlusion, lower extremity Acute DVT (deep venous thrombosis) Acute Elevated INR Acute Pulmonary emboli Acute
[2018-02-20] MEDS ORDERED: WARFARIN SODIUM 5 MG TAB PO SCH (16:00)
[2018-02-20] MEDS: WARFARIN SODIUM 5 MG TAB PO SCH (17:11)
[2018-02-20] MEDS: LATANOPROST 0.005% 2.5 ML OPHT DROPS RTEYE SCH (22:07)
[2018-02-21 06:43] LABS: INR 1.61 (0.83-1.16); PROTIME(PATIENT) 19.3 SEC (12.0-15.0)
[2018-02-21] MEDS: GABAPENTIN 300 MG CAP PO SCH (07:56)
[2018-02-21] MEDS: CLOPIDOGREL BISULFATE 75 MG TAB PO SCH (07:57)
[2018-02-21] MEDS: ACETAMINOPHEN 325 MG TAB PO PRN ×2 (08:03→19:30)
[2018-02-21] MEDS: FERROUS SULFATE 325 MG TAB PO SCH (08:04)
[2018-02-21] MEDS: DOCUSATE SODIUM 100 MG CAP PO SCH ×2 (08:04→19:54)
[2018-02-21] MEDS: GLUCOSAMINE SULF 500 MG CAP PO SCH (08:04)
[2018-02-21] MEDS: PANTOPRAZOLE SODIUM 40 MG TAB PO SCH (08:04)
[2018-02-21] MEDS: POLYETHYLENE GLYCOL 3350 17 GM PKT PO SCH (10:34)
[2018-02-21] MEDS: HYDROmorphone HCL/NS 0.5 MG/ML SYR IVP PRN (15:56)
[2018-02-21] MEDS: WARFARIN SODIUM 5 MG TAB PO SCH (16:16)
[2018-02-21] MEDS: LATANOPROST 0.005% 2.5 ML OPHT DROPS RTEYE SCH (19:55)
[2018-02-22] MEDS: ACETAMINOPHEN 325 MG TAB PO PRN (07:40)
[2018-02-22] MEDS: GLUCOSAMINE SULF 500 MG CAP PO SCH (07:54)
[2018-02-22] MEDS: GABAPENTIN 300 MG CAP PO SCH (07:54)
[2018-02-22] MEDS: PANTOPRAZOLE SODIUM 40 MG TAB PO SCH (07:54)
[2018-02-22] MEDS: DOCUSATE SODIUM 100 MG CAP PO SCH (07:54)
[2018-02-22] MEDS: CLOPIDOGREL BISULFATE 75 MG TAB PO SCH (07:54)
[2018-02-22] MEDS: FERROUS SULFATE 325 MG TAB PO SCH (07:54)
[2018-02-22 08:20] VITALS: BP 104/73
[2018-02-22 09:29] LABS: INR 1.67 (0.83-1.16); PROTIME(PATIENT) 19.8 SEC (12.0-15.0)
[2018-02-22] MEDS: POLYETHYLENE GLYCOL 3350 17 GM PKT PO SCH (11:04)
--- NOTE | 2018-02-22 11:08 | SOAPPROG ---
SOAP Progress Note Assessment/Plan: Assessment: 62 Y M recent fem-DP arterial bypass graft c ischemic toes, s/p amputation of toes 1-3 with STSG to assist in closure, and debridement of dorsal surface skin graft with new STSG and wound vac placement S: No complaints. O: Alert Afebrile No increased WOB RLE: +graft pulse. STSG site on toe amputation site with purulent drainage and malodor. Graft of dorsal surface of foot intact with scant bleeding. Plan: Graft over toe amputation site appears to have failed. Silver dressing to dorsal surface graft site. Can stay for 5 days. Daily dressing changes for other graft site. Discharge to SNF today. 02/22/18 11:05 Objective: Vital Signs Temp Pulse Resp BP Pulse Ox 37.1 C 67 16 104/73 98 02/22/18 08:00 02/22/18 08:00 02/22/18 08:00 02/22/18 08:00 02/22/18 08:00 Laboratory Results 02/19/18 05:00 02/15/18 04:40 02/21/18 02/22/18 02/23/18 05:59 05:59 05:59 Intake Total 650 1200 Output Total 1200 900 Balance -550 300 PT 19.8 SEC (12.0-15.0) H 02/22/18 07:25 INR 1.67 (0.83-1.16) H 02/22/18 07:25 ICD10 Worksheet Patient Problems: Problems Problem Status Onset Arterial occlusion, lower extremity Acute DVT (deep venous thrombosis) Acute Elevated INR Acute Pulmonary emboli Acute
--- NOTE | 2018-02-22 11:16 | PDIAF ---
- Diagnosis Code Status: Full Code - Medication Management Discharge Medications: Medications to Continue on Transfer Ferrous Sulfate [Ferrous Sulf 325 MG (*)] 325 mg PO DAILY 12/29/17 [Last Taken 02/13/18 08:00] Glucosamine Sulfate [Glucosamine Sulfate 500 MG (*)] 500 mg PO DAILY 12/29/17 [ Last Taken 02/13/18] Herbals/Supplements -Info Only 1 ea PO DAILY 12/29/17 [Last Taken Unknown] Latanoprost 0.005% [Xalatan 0.005% (*)] 1 drop RTEYE HS 12/29/17 [Last Taken 20:00] [place]-3 Fatty Acids [Fish Oil 1000 mg (*)] 1,000 mg PO DAILY 12/29/17 [Last Taken 02/13/18 08:00] Acetaminophen [Tylenol ES 500 mg (*)] 1,000 mg PO TID 02/13/18 [Last Taken 02/13] Sennosides/Docusate Sodium [Senokot-S] 1 tab PO BID 02/13/18 [Last Taken 20:00] Warfarin Sodium [Coumadin 5MG (*)] 5 mg PO SUTUTHSA@1700 02/13/18 [Last Taken ] oxyCODONE IR [Oxycodone Ir (*)] 5 - 10 mg PO HS PRN 02/13/18 [Last Taken 1 Week Ago ~02/08/18] Clopidogrel Bisulfate [Clopidogrel] 75 mg PO DAILY 02/14/18 [Last Taken 02/13/18 ] Pantoprazole Sodium [Protonix 40mg (*)] 40 mg PO DAILY 02/14/18 [Last Taken 08:00] Zolpidem Tartrate [Ambien 5MG (*)] 5 mg PO HS PRN 02/14/18 [Last Taken 02/13/18] Gabapentin [Neurontin 300 MG (*)] 300 mg PO ONCE #0 cap 02/22/18 [Last Taken Unknown] oxyCODONE/APAP 5/325 [Percocet 5/325 (*)] 1 - 2 tab PO Q4 PRN tab 02/22/18 [ Last Taken Unknown] Discharge Medications: Refer to the Discharge Home Medication list for PRN reason. PICC Care - Routine: N/A - Orders Services needed: Registered Nurse, Physical Therapy, Occupational Therapy Isolation Type: None Diet Recommendation: no restrictions on diet Diet Texture: Regular Texture Diet Wound Care Instructions: Ok to bear weight on RLE. Dressing changes once per day to graft sites on dorsum of R foot and toe amputation site. Dressings must be nonadherent- xeroform, 4x4s and kerlix. Additional Instructions: Ok to bear weight on RLE. Continue Gabapentin that was started in the hospital. Dressing changes once per day to graft sites on dorsum of R foot and toe amputation site. Follow up with Dr. East in one week. - Follow Up Care Current Providers and Referrals: NONE *PRIMARY CARE P,. [Primary Care Provider] - Bandar East MD [Medical Doctor] - follow up in 1 week
--- NOTE | 2018-02-22 15:59 | ASDISCHSUM ---
Discharge Information Plan Status:SNF Medically Cleared to Leave:02/22/2018 Discharge Date:02/22/2018 01:33 PM CM D/C Disposition:Alf Facility ADT D/C Disposition:Alf Facility Projected Discharge Date:02/22/2018 11:00 AM Transportation at D/C:Wheelchair Van Discharge Delay Reason: Follow-Up Date:02/22/2018 11:00 AM Discharge Slot: Final Diagnosis:Gangrene R toes 1-3 Placement Information Referral Type:*Group Home/SNF Referral ID:[id number] Provider Name:Megan Freire/[facility] Address 1:[address] Phone Number: Address 2: Fax Number: [facility]:Megan Selection Factors: State:[place] Patient Contact Information Contact Name:CHELO Relationship: Address: Home Phone: Work Phone: City: [facility] Phone: [facility] Code: Email: Financial Information Financial Class:Self-Pay Primary Plan Desc:SELF PAY Primary Plan Number: Secondary Plan Desc: Secondary Plan Number: Assessment Information [facility] CM Progress Note CM Note CM Note Notes: Pt admitted to hospital for planned surgery of right toes. Pt resides currently at [facility], per Marie from [facility], it is unclear if pt had a Medicaid yaw started there. Previous insurance listed is not active d/t non payment. Anticipate pt will dc back to when medically stable. DC Plan: [facility]/ [facility] Date Signed: 02/15/2018 12:36 PM Electronically Signed By:Elizabeth Davis RN [facility] JOSSELINE Progress Note CM Note CM Note Notes: JOSSELINE spoke with Stephanie from [facility], they have started the Medicaid application. Pt does not have any other insurance. [facility] willing to take pt back, per MD, pt will be here for another 5 days for healing of skin graft. He currently [place] a wound vac but [place] Plan: [facility]/ [facility] Date Signed: 02/16/2018 04:30 PM Electronically Signed By:Elizabeth Davis RN [facility] Progress Note CM Note Note Notes: Patient here for surgery of 1-3 toes and debridement of R foot, skin graft and wound vac, Gabapentin for nerve pain. will return to [facility] on discharge. Date Signed: 02/19/2018 03:43 PM Electronically Signed By:Mary Car LCSW Case Management Discharge Plan Note Case Management Discharge Discharge Order Complete? Answers: Yes Patient to Obtain Answers: Other Notes: [facility] Medications Transportation Arranged Answers: Other Notes: [facility] Transport will Pick (Date 02/22/2018 01:30 PM & Time) EMTALA Complete Answers: No Case Management Transport Answers: Yes Form Complete Faxed Final Orders Answers: Yes Agency/Facility Transfer Answers: Yes Report Printed & Faxed to Receiving Agency Family Notified Answers: No Discharge Comments Notes: CM spoke w/ RIMA Toth and Alejandra Sy NP regarding d/c POC. Pt is being discharged today to [facility]. CM sent d/c orders. CM provided RIMA Toth w/ phone number to give report. CM available for changes. Plan: [facility] [place] Date Signed: 02/22/2018 11:32 AM Electronically Signed By:PIPPA Mayen Intervention Information
== END 2018-02-22 13:33 | DRG 256 ==
LOC: F3N 13:42 → OBSVTOIN 13:42 → F3E 17:48
PROVIDERS: ADMIT Surgery; ATTEND Surgery
DX: I70.261 Atherosclerosis of native arteries of extremities with gangrene, right leg (principal); T86.821 Skin graft (allograft) (autograft) failure; M86.9 Osteomyelitis, unspecified; D68.59 Other primary thrombophilia; H40.9 Unspecified glaucoma; Z86.711 Personal history of pulmonary embolism; Z86.718 Personal history of other venous thrombosis and embolism; Z59.0 Homelessness; Z86.73 Personal history of transient ischemic attack (TIA), and cerebral infarction without residual deficits
CPT/HCPCS: 97116-GP; 97162-GP; 97165-GO; 97530-GO; J0171; J0690; J1100; J1170; J2250; J2704; J2710; J3010

== ENCOUNTER 2018-06-08 15:17 | Inpatient (IN) | payer OTHER ==
--- NOTE | 2018-06-08 15:35 | EDPHY ---
H & P Time Seen by Provider: 06/08/18 15:30 HPI/ROS: CHIEF COMPLAINT: Possible foot infection HISTORY OF PRESENT ILLNESS: Patient is a 62-year-old male with a history of protein C deficiency, previous lower extremity clotting, skin graft and bypass who presents to the emergency department the with increasing pain to his right foot. The patient states that he was off Coumadin for time. This caused him to developed a blood clot. He subsequently required a bypass of his right lower extremity. He also had up foot skin graft of his right lower extremity. Patient is currently living in a nursing care facility. He is not on antibiotics. He has noticed increased pain on his right foot. Patient states that he has not look at his foot every time they do of a wound dressing change the thinks it might be slightly more red than normal. There is no new discharge. No fevers or chills. REVIEW OF SYSTEMS: My complete review of systems is negative except as mentioned in the HPI. Past Medical/Surgical History: Includes protein C deficiency, DVT, foot gangrene, alcohol abuse, diverticulitis Past surgical history: Includes resection of toes, right-sided fem popliteal bypass Social history: The patient currently lives in a nursing facility. Smoking Status: Never smoked Physical Exam: Vitals noted. Afebrile GENERAL: Well-appearing, in no acute distress, alert. HEENT: Eyes normal to inspection, normal pharynx, no signs of dehydration. NECK: [No thyromegaly, no lymphadenopathy, supple. RESPIRATORY: Clear to auscultation bilaterally, no rales, rhonchi or wheezing. CVS: Regular rate and rhythm, no rubs, murmurs, or gallops. ABDOMEN: Soft, nontender, nondistended, no organomegaly. BACK: Normal to inspection, no CVA tenderness. SKIN: Normal color, no rash, warm, dry. No pallor. EXTREMITIES: Patient's right lower extremity is dressed. This was removed. The patient has mild redness on the dorsal of his foot. There is small opened wound less than the size of a dime on the dorsum of his foot. There is slight pus discharge. Patient also has an open wound at the amputation site of his right great toe. There is mild surrounding erythema. There is no streaking up the leg. Decreased/poor pulse over distal bypass site. Positive cap refill. Normal sensation. No pedal edema, no calf tenderness, no joint swelling. NEURO/PSYCH: Alert and oriented, normal mood and affect, normal motor sensory exam. No obvious cranial nerve deficit. Constitutional: Initial Vital Signs Temperature (C) 36.8 C 06/08/18 15:17 Heart Rate 77 06/08/18 15:17 Respiratory Rate 18 06/08/18 15:17 Blood Pressure 153/95 H 06/08/18 15:17 O2 Sat (%) 95 06/08/18 15:17 O2 Delivery Mode Room Air Allergies/Adverse Reactions: No Known Allergies Allergy (Verified 06/08/18 15:27) Home Medications: Medication Instructions Recorded Ferrous Sulfate [Ferrous Sulf 325 325 mg PO DAILY 12/29/17 MG (*)] Glucosamine Sulfate [Glucosamine 500 mg PO DAILY 12/29/17 Sulfate 500 MG (*)] Herbals/Supplements -Info Only 1 ea PO DAILY 12/29/17 Latanoprost 0.005% [Xalatan 0.005% 1 drop RTEYE HS 12/29/17 (*)] [place]-3 Fatty Acids [Fish Oil 1000 1,000 mg PO DAILY 12/29/17 mg (*)] Acetaminophen [Tylenol ES 500 mg 1,000 mg PO TID 02/13/18 (*)] Sennosides/Docusate Sodium 1 tab PO BID 02/13/18 [Senokot-S] Warfarin Sodium [Coumadin 5MG (*)] 5 mg PO SUTUTHSA@1700 02/13/18 oxyCODONE IR [Oxycodone Ir (*)] 5 - 10 mg PO HS PRN 02/13/18 Clopidogrel Bisulfate [Clopidogrel] 75 mg PO DAILY 02/14/18 Pantoprazole Sodium [Protonix 40mg 40 mg PO DAILY 02/14/18 (*)] Zolpidem Tartrate [Ambien 5MG (*)] 5 mg PO HS PRN 02/14/18 Gabapentin [Neurontin 300 MG (*)] 300 mg PO ONCE #0 cap 02/22/18 oxyCODONE/APAP 5/325 [Percocet 1 - 2 tab PO Q4 PRN tab 02/22/18 5/325 (*)] Medical Decision Making ED Course/Re-evaluation: In the emergency department I discussed possible etiologies with the patient. I answered all his questions. The retirement was contacted. Laboratory studies and blood cultures were ordered. Due the increased redness patient was given Rocephin 1 g IV and vancomycin 1 g IV. I paged Dr. East to evaluate the patient. Patient's white count is mildly elevated at 9.8. Chemistry panel is unremarkable. Coags were added. I discussed the case with Dr. East after his evaluation. He recommends admission. I discussed case with Dr. Nguyen. Dr. East also spoke with Dr. Nguyen regarding treatment plan. I discussed plan with the patient. I answered all his questions. Differential Diagnosis: My differential includes but is not limited to cellulitis, abscess, osteomyelitis, foreign body, bacteremia, sepsis - Data Points Laboratory Results: Laboratory Results 06/08/18 15:45 06/08/18 15:45 06/08/18 06/08/18 06/08/18 15:45 15:45 15:45 WBC 9.80 10^3/uL H 10^3/uL (3.80-9.50) RBC 5.20 10^6/uL 10^6/uL (4.40-6.38) Hgb 14.9 g/dL g/dL (13.7-17.5) Hct 43.2 % % (40.0-51.0) MCV 83.1 fL fL (81.5-99.8) MCH 28.7 pg pg (27.9-34.1) MCHC 34.5 g/dL g/dL (32.4-36.7) RDW 14.5 % % (11.5-15.2) Plt Count 360 10^3/uL 10^3/uL (150-400) MPV 8.7 fL fL (8.7-11.7) Neut % (Auto) 73.2 % % (39.3-74.2) Lymph % (Auto) 16.6 % % (15.0-45.0) [place] % (Auto) 7.8 % % (4.5-13.0) Eos % (Auto) 1.6 % % (0.6-7.6) Baso % (Auto) 0.6 % % (0.3-1.7) Nucleat RBC Rel Count 0.0 % % (0.0-0.2) Absolute Neuts (auto) 7.17 10^3/uL H 10^3/uL (1.70-6.50) Absolute Lymphs (auto) 1.63 10^3/uL 10^3/uL (1.00-3.00) Absolute Monos (auto) 0.76 10^3/uL 10^3/uL (0.30-0.80) Absolute Eos (auto) 0.16 10^3/uL 10^3/uL (0.03-0.40) Absolute Basos (auto) 0.06 10^3/uL 10^3/uL (0.02-0.10) Absolute Nucleated RBC 0.00 10^3/uL 10^3/uL (0-0.01) Immature Gran % 0.2 % % (0.0-1.1) Immature Gran # 0.02 10^3/uL 10^3/uL (0.00-0.10) PT Pending INR Pending APTT Pending Sodium 141 mEq/L mEq/L (135-145) Potassium 4.9 mEq/L mEq/L (3.3-5.0) Chloride 102 mEq/L mEq/L (97-110) Carbon Dioxide 26 mEq/l mEq/l (22-31) Anion Gap 13 mEq/L mEq/L (8-16) BUN 21 mg/dL mg/dL (7-23) Creatinine 0.9 mg/dL mg/dL (0.7-1.3) Estimated GFR > 60 Glucose 84 mg/dL mg/dL (70-100) Calcium 10.1 mg/dL mg/dL (8.5-10.4) Medications Given: Discontinued Medications Ceftriaxone Sodium/Dextrose (Rocephin 1 Gm (Premix)) 50 mls @ 100 mls/hr IV EDNOW ONE PRN Reason: Protocol Stop: 06/08/18 16:37 Last Admin: 06/08/18 16:19 Dose: 50 mls Vancomycin/Sodium Chloride (Vancomycin 1 Gm (Premix)) 250 mls @ 250 mls/hr IV EDNOW ONE PRN Reason: Protocol Stop: 06/08/18 17:07 Last Admin: 06/08/18 16:20 Dose: 250 mls Departure - Departure Disposition: [facility] Acute Clinical Impression: Cellulitis of foot, History of femoropopliteal bypass Condition: Good Referrals: NONE *PRIMARY CARE P,. [Primary Care Provider] - As per Instructions
[2018-06-08] MEDS ORDERED: VANCOMYCIN HCL/NORMAL SALINE 250 ML IV ONE (16:08)
[2018-06-08 16:25] LABS: PLATELET COUNT 360 10^3/uL (150-400)
[2018-06-08 17:31] LABS: INR 1.81 (0.83-1.16); PROTIME(PATIENT) 21.1 SEC (12.0-15.0)
[2018-06-08] MEDS ORDERED: IOPAMIDOL (ISOVUE 370) 100 ML BTL IV ONE (18:07)
[2018-06-08] MEDS ORDERED: ONDANSETRON 4 MG/2 ML VIAL IVP PRN (18:08)
[2018-06-08] MEDS ORDERED: HEPARIN 10,000 UNIT/10 ML MDV (1,000 UNIT/ML) IVP ONE (18:08)
[2018-06-08] MEDS ORDERED: ONDANSETRON DISINTEGRATING 4 MG TAB PO PRN (18:08)
[2018-06-08] MEDS ORDERED: ACETAMINOPHEN 325 MG TAB PO PRN (18:08)
[2018-06-08] MEDS ORDERED: HEPARIN 10,000 UNIT/10 ML MDV (1,000 UNIT/ML) IVP PRN (18:08)
[2018-06-08] MEDS ORDERED: HEPARIN/DEXTROSE 500 ML IV SCH (18:15)
--- NOTE | 2018-06-08 18:48 | GHP ---
[f rep st] HISTORY AND PHYSICAL DATE OF ADMISSION: 06/08/2018 CHIEF COMPLAINT: Right lower extremity pain and difficulty with ambulation. HISTORY OF PRESENT ILLNESS: Mr. Hall is a 62-year-old male with history of peripheral vascular disease, who underwent an extensive right lower extremity femoral to dorsalis pedis bypass surgery due to severe limb threatening ischemia on the right leg in December 2017. He was previously homeless, but after his bypass surgery, he was transferred to nursing home facility, where he has been living since that time. He states over the past 2 days, he has increasing pain in his right foot and on the day of admission, he is having difficulty with ambulation. He denies fevers or chills. He denies chest pain, shortness of breath, abdominal pain, nausea, vomiting, or diarrhea. He was evaluated by Daniel East, his vascular surgeon, in the emergency department, and there is some concern for graft occlusion. He takes Coumadin for protein C deficiency and his INR on arrival is subtherapeutic at 1.8. He will be admitted to the step-down unit on a heparin drip and Interventional Radiology will consult for consideration of thrombolysis, but we will start by treating his infection. PAST MEDICAL AND SURGICAL HISTORY: 1. Peripheral vascular disease. 2. Status post femoral dorsalis pedis bypass. 3. Protein C deficiency. 4. History of DVTs and PEs. 5. Chronic anticoagulation with Coumadin. 6. History of stroke. 7. History of diverticulitis. 8. Alcohol abuse. 9. History of homelessness, currently residing at SNF. MEDICATIONS: Please see [facility] for completed outpatient medication list. ALLERGIES: He has no known drug allergies. FAMILY HISTORY: Reviewed and noncontributory. SOCIAL HISTORY: The patient was previously homeless, but currently residing at SNF. He denies tobacco use. He denies illicit drugs. He reports that he had drinks on the weekends and used to be a heavier drinker, but has cut back. REVIEW OF SYSTEMS: A 10-point review of systems was performed and is negative, except as per HPI. OBJECTIVE: VITAL SIGNS: Temperature is 36.7, blood pressure 135/79, heart rate 78, respiratory rate 18. He is 95% on room air. GENERAL: Patient is awake, alert, and oriented, in no acute distress. HEENT: Head is atraumatic, normocephalic. Pupils equal, round, reactive to light. Extraocular movements intact. Oropharynx clear. Mucous membranes are moist. NECK: Supple. There is no JVD. HEART: Regular rate and rhythm without murmur. LUNGS: Clear to auscultation bilaterally. ABDOMEN: Soft, nondistended, nontender with normoactive bowel tones. EXTREMITIES: His right lower extremity reveals breakdown of the skin graft over his right great toe amputation base. There is no purulence. This is covered with a black eschar and there are some surrounding cellulitic changes. There is no palpable dorsalis pedis pulse. I am able to detect a posterior tibialis pulse with Doppler, and his extremity is warm, indicating somewhat adequate perfusion at this time. NEUROLOGIC: Exam is grossly nonfocal. LABORATORY DATA: CBC reveals a white blood cell count of 9.8, with 73% neutrophils. INR is subtherapeutic at 1.8. Basic metabolic panel shows normal electrolytes. Creatinine 0.9. LFTs are pending. ASSESSMENT AND PLAN: Mr. Hall is a 62-year-old male with a history of severe peripheral vascular disease, who presented in December 2017, with limb threatening ischemia and underwent extensive right lower extremity bypass from femoral to dorsalis pedis and great toe amputation. He returns with right lower extremity cellulitis related to his wound and possibly an infected graft. 1. Right lower extremity cellulitis / wound infection, s/p skin graft. He resides in a correction. He has had no recent antibiotics. Will treat with Zosyn and vancomycin. I have requested infectious disease consult for tomorrow and antibiotics can be further tailored at their discretion. He has no evidence of sepsis on arrival. 2. Possible occluded / infected bypass graft. No evidence of limb threatening ischemia at this time and I do detect a posterior tibialis pulse by Doppler. I discussed the case with both Dr. East and Dr. Ocasio with Interventional Radiology. His INR is subtherapeutic. Will start him on a heparin drip and treat his infection as above. Interventional Radiology will consult in the morning. In the meantime, will obtain CT angiography with runoff to determine the patency of his graft. Will make him n.p.o. at midnight. 3. History of deep venous thrombosis and pulmonary embolism secondary to protein C deficiency. He is on Coumadin, but is subtherapeutic. Plan is for heparin drip as above. 4. Peripheral neuropathy. He complains of increased neuropathic pain. We will up-titrate his gabapentin, and continue p.r.n. oxycodone. 5. History of alcohol abuse. He is not currently a daily drinker. Watch closely for signs of withdrawal. 6. Code status: Patient is full code. 7. Disposition. Patient admitted to inpatient status to the step-down unit. I anticipate he will require greater than 48 hours hospitalization for management of his right lower extremity infection and possibly occluded bypass graft. /[id number]/MODL MTDD
[2018-06-08] MEDS: oxyCODONE IR 5 MG TAB PO PRN ×2 (19:05→20:10)
[2018-06-08] MEDS: PIPERACILLIN/TAZO 3.375 GM/DEX 50 ML IV SCH ×2 (19:27→23:58)
[2018-06-08] MEDS: GABAPENTIN 300 MG CAP PO SCH (21:40)
[2018-06-09] MEDS: VANCOMYCIN 1.5 GM in NS 250 ML IV SCH ×2 (01:01→12:56)
[2018-06-09] MEDS: PIPERACILLIN/TAZO 3.375 GM/DEX 50 ML IV SCH ×4 (05:47→23:52)
[2018-06-09 06:49] LABS: PLATELET COUNT 283 10^3/uL (150-400)
[2018-06-09] MEDS: oxyCODONE IR 5 MG TAB PO PRN ×4 (07:53→17:28)
[2018-06-09] MEDS: GABAPENTIN 300 MG CAP PO SCH ×2 (07:54→12:59)
[2018-06-09 08:06] LABS: INR 1.78 (0.83-1.16); PROTIME(PATIENT) 20.8 SEC (12.0-15.0)
[2018-06-09] MEDS ORDERED: PANTOPRAZOLE SODIUM 40 MG TAB PO SCH (09:00)
--- NOTE | 2018-06-09 09:33 | PDMN ---
Medical Necessity Medical necessity: [facility] M70 cellulitis: RLE cellulitis/wound infection S/P skin graft, poss occluded /infected bypass graft.- no palpable dorsalis pedis pulse at this time, INR is subtherapeutic, IV heparin initiated, HX of DVT, PE, peripheral neuropathy, hx ETOH abuse, cont. to monitor, anticipate > 2 midnights ongoing med nec care- pt is homeless ( currently resides at SNF- S/P fem-dorsalis pedis bypass)
--- NOTE | 2018-06-09 10:23 | HOSPPROG ---
Hospitalist Progress Note Assessment/Plan: 62 yo M w pvd, prot C deficiency here w occulded graft graft occlusion: on heparin gtt IR to attempt thrombectomy today cellulitis: vanc/zosyn ID to see prot C: on heparin acknowledges recent subtherapeutic INR pain: well controlled on orals proph: anticoaulated dispo: stepdown Subjective: case d/w dr moya, dr cortez. notes decreased erythema at distal R foot Objective: Vital Signs Temp Pulse Resp BP Pulse Ox 36.5 C 57 L 12 116/71 96 06/09/18 07:55 06/09/18 07:55 06/09/18 07:55 06/09/18 07:55 06/09/18 07:55 Laboratory Results 06/09/18 06:18 06/09/18 06:18 06/08/18 06/09/18 06/10/18 05:59 05:59 05:59 Intake Total 923 Output Total 875 400 Balance 48 -400 PT 20.8 SEC (12.0-15.0) H 06/09/18 07:45 INR 1.78 (0.83-1.16) H 06/09/18 07:45 - Physical Exam Constitutional: no apparent distress, appears nourished Eyes: PERRL, anicteric sclera Ears, Nose, Mouth, Throat: moist mucous membranes, hearing normal Cardiovascular: regular rate and rhythym, no murmur, rub, or gallop Respiratory: no respiratory distress, no rales or rhonchi Gastrointestinal: normoactive bowel sounds, soft, non-tender abdomen Genitourinary: no bladder fullness, No xiao in urethra Skin: warm, normal color Musculoskeletal: other (RLE w great toe amputation, eschar at op site and dorsum of foot. minimal erythema) Neurologic: AAOx3, sensation intact bilaterally Psychiatric: interacting appropriately ICD10 Worksheet Patient Problems: Problems Problem Status Onset Cellulitis of foot Acute History of femoropopliteal bypass Acute Arterial occlusion, lower extremity Acute DVT (deep venous thrombosis) Acute Elevated INR Acute Pulmonary emboli Acute
[2018-06-09] MEDS ORDERED: BISACODYL 10 MG SUPP PR PRN (10:29)
[2018-06-09] MEDS ORDERED: MAGNESIUM HYDROXIDE 30 ML UDCUP PO PRN (10:29)
[2018-06-09] MEDS: POLYETHYLENE GLYCOL 3350 17 GM PKT PO SCH (10:35)
--- NOTE | 2018-06-09 11:06 | GCON ---
[f rep st] CONSULTATION CHIEF COMPLAINT: Right foot pain and difficulty with ambulation. HISTORY OF PRESENT ILLNESS: This is a 62-year-old male, well known to our clinic, who has a history of peripheral vascular disease and had a right femoral to dorsalis pedis bypass with reverse saphenous vein graft in December of this year. He subsequently underwent ray amputation of the right 1st toe, proximal transphalangeal amputations of the right 2nd and 3rd toes, debridement of the right foot at the femoral dorsalis pedis bypass site with split- thickness skin graft, and a split-thickness skin graft to the 1st toe with placement of wound VAC. He presented to the emergency room yesterday with complaints of increasing pain in his right foot as well as difficulty walking. He reports that this has been going on for the past 2 days. He does take Coumadin for protein C deficiency and his INR on arrival was 1.8. He denies fever and chills. PAST MEDICAL HISTORY: Protein C deficiency, peripheral vascular disease, history of DVTs and PEs, history of stroke, history of diverticulitis, alcohol abuse, homelessness, however, he is currently residing at [facility]. SURGICAL HISTORY: Femoral dorsalis pedis bypass graft on the right leg as well as multiple right toe amputations for gangrene. ALLERGIES: No known drug allergies. FAMILY HISTORY: Noncontributory. SOCIAL HISTORY: He is currently residing at a senior care facility, however , when he 1st presented to the emergency room several months ago for his original surgery, he had been homeless. He is a nonsmoker and denies use of recreational drugs. REVIEW OF SYSTEMS: A 10-point review of systems was performed and is negative, except for what is in the HPI. PHYSICAL EXAM: MOST RECENT VITAL SIGNS: Blood pressure 116/71, heart rate 63, respiratory rate 12, O2 saturation 96% on room air. Temperature 36.5. GENERAL : This is a well-appearing 62-year-old male, lying in the hospital bed. He is alert and awake and in no acute distress. HEENT: Normocephalic and atraumatic. Pupils are equal and round. No gross hearing deficits. Mucous membranes are moist. CARDIAC: Regular rate and rhythm without murmur. LUNGS: Clear to auscultation bilaterally, no increased work of breathing. ABDOMEN: Soft, nondistended, nontender. EXTREMITIES: Right lower extremity pedal pulses are absent. There is breakdown of the skin graft over his right great toe amputation site. This site also has black eschar with surrounding erythema and swelling. His graft is palpable in the inferior portion and is firm, consistent with occlusion. NEUROLOGIC: Grossly intact. ASSESSMENT AND PLAN: This is a 62-year-old male, well known to us, who has a history of severe peripheral vascular disease due to protein C deficiency. He is chronically anticoagulated with Coumadin, however, his INR on admission was subtherapeutic at 1.8. A CT scan obtained in the emergency room revealed complete occlusion of the right femoral posterior tibial bypass graft throughout its length. Interventional Radiology will consult today to discuss the option of possible thrombolysis of his bypass graft. The patient was advised that this is likely a difficult option and there is a chance that it will not be successful. We briefly discussed that he may be at the point where he needs an amputation. He was seen with Dr. Ann, who agrees with plan. Continue heparin drip and antibiotic coverage. We will continue to follow. /[id number]/MODL MTDD
--- NOTE | 2018-06-09 13:27 | GCON ---
[f rep st] CONSULTATION PREPARATION ROOM MANAGER CONSULTATION REASON FOR ADMISSION: Severe peripheral vascular disease, right lower extremity and occluded infecte d bypass graft. HISTORY OF PRESENT ILLNESS: The patient is a 62-year-old white male with an extensive past medical h istory, including severe peripheral vascular disease, protein-C deficiency, frequent DVTs and PEs, ch ronic anticoagulation, diverticulitis, history of alcohol abuse. Has had a past femoral dorsalis ped is bypass. He presents to the hospital after feeling unwell. In December of this year, he had threaten ed ischemia of the right leg, which required thrombolysis. He returns with a similar problem, and th ere is concern for graft occlusion. His INR has been subtherapeutic. He was admitted for Interventi onal Radiology for thrombolysis. Currently, with the exception of some pain, the patient feels quite well. He denies any cough or productive sputum. There is no chest pain, pleuritic-type chest pain or angina equivalent. No nausea or vomiting. No diarrhea. REVIEW OF SYSTEMS: Ten-point review of systems was performed and is negative, except for what is lis liz in the HPI. PAST MEDICAL HISTORY: Again significant for peripheral vascular disease, protein-C deficiency, chron ic anticoagulation, diverticulitis, stroke, DVTs, status post femoral dorsalis pedis bypass. ALLERGIES: No known to allergies to medications. FAMILY HISTORY: Noncontributory. SOCIAL HISTORY: Previously homeless. He resides at a SNF. No current tobacco or alcohol use. PHYSICAL EXAM: VITAL SIGNS: Blood pressure is 125/71, pulse 62, respirations 15, temperature 36.9, oxygen saturation 94% on room air. GENERAL: He is a well-developed 62-year-old white male who is re sting comfortably, in no acute distress. HEENT: : Eyes, PERRL, EOMI. Throat shows no erythema nor tonsillar hypertrophy. NECK: Supple. No cervical adenopathy. HEART: Regular rate and rhythm, wit hout murmurs, rubs, or gallops. LUNGS: Diminished breath sounds but no wheeze. ABDOMEN: Soft, non tender. Bowel sounds present in all 4 quadrants. EXTREMITIES: His right foot shows partial amputat ion. There was significant scarring from previous surgeries on the right leg. LABORATORY DATA: White count 6.1, hemoglobin 13, hematocrit 39. Platelet count is 283. INR 1.78. Sodium 141, potassium 4.3, chloride 107, CO2 24, BUN 16, creatinine 0.8. Glucose is 100. Aorta with runoff CTA reveals occlusion of the right femoral-popliteal bypass graft through its length. There i s stable occlusion of the distal right SFA above the distal femoral stent, with reconstitution of the distal calf vessels via collaterals. IMPRESSION: 1. Severe peripheral vascular disease. 2. Occluded infected bypass graft. 3. Peripheral neuropathy. 4. History of alcohol abuse. 5. Protein C deficiency. 6. History of diverticulitis. 7. History of stroke. RECOMMENDATIONS: 1. Agree with current antibiotic coverage, as well as Infectious Disease consultation. 2. Patient is scheduled for Interventional Radiology for thrombolysis. 3. General Surgery has been consulted. 4. Stress ulcer prophylaxis. 5. Adequate pain control. /[id number]/MODL
--- NOTE | 2018-06-09 13:37 | GCON ---
[f rep st] CONSULTATION INFECTIOUS DISEASE CONSULT DATE OF CONSULTATION: 06/09/2018 REFERRING PHYSICIAN: Mick Trevino MD REASON FOR CONSULT: To assist in the management of this 62-year-old male with protein-C deficiency and severe peripheral arterial disease, status post recent femoral-popliteal bypass, now admitted with complete occlusion of bypass and nonhealing right foot wounds with possible cellulitis. HISTORY OF PRESENT ILLNESS: The patient is a 62-year-old male whose previous medical history is notable for the followin. Peripheral arterial disease. 2. Protein-C deficiency with history of DVTs and pulmonary emboli. 3. History of stroke. 4. History of diverticulitis. 5. Previous alcohol abuse. 6. History of homelessness since 2008, currently residing at [facility]. Regarding his present issues, the patient was admitted to [facility] in December of this year, at which time he was found to have severe limb- threatening ischemia of the right lower extremity. He underwent a right femoral dorsalis pedis bypass with reverse saphenous vein graft, as well as thrombectomy of the popliteal and superficial femoral artery. He also underwent full-thickness skin graft to the right foot. He was discharged at that time to [facility]. He was readmitted in mid-January when he was found to have gangrene of his right toes. The patient was found to have adequate blood flow through the femoral dorsalis pedis bypass, but the tissue over the dorsalis pedis anastomosis was necrotic, requiring debridement. He underwent ray amputation of the right 1st toe, proximal transphalangeal amputations of the right 2nd and 3rd toes, debridement of the right foot at the femoral dorsalis pedis bypass site with split-thickness skin grafting, and split- thickness skin grafting to the 1st toe with placement of a wound VAC. Of note, the patient only received perioperative Ancef. Surgical pathology of the toes revealed, "focal areas of osteomyelitis, focally appearing to involve the proximal resection margins of the 2nd toe." The patient was discharged to [facility] on no antibiotics on February 22. Of note, the patient's skin grafting over the toe did not appear to take. He was sent to [facility] for daily dressing changes. The patient was readmitted to [facility] yesterday. The patient tells me that he has been having pain with ambulation over the past few days. He tells me that his dressing over his right foot is changed once or twice daily , but he does not like to look at it, so does not know if it has been redder. He only notes increasing pain. He states that he asked a nurse at [facility] whether or not it could be infected; she notified the doctor who became concerned and sent the patient over to [facility] Emergency Room for further evaluation and treatment. In our emergency room, the patient had a slight white blood cell count of 9.8 with no fevers. His INR was found to be subtherapeutic at 1.8. A CT aortogram with bilateral lower extremity runoff revealed complete occlusion of the right femoral-popliteal bypass graft throughout its entire length. The patient was also noted to have stable occlusion of the distal right SFA immediately above a distal femoral stent with reconstitution of the distal calf vessels via collaterals. Given the appearance of his right foot with some erythema along the foot dorsum and toe, he was started on vancomycin and piperacillin/tazobactam. I am now asked to assist in his management. Speaking with the patient today, he is strongly considering having his leg amputated. He is frustrated with hospital admission and does not understand why his INR was subtherapeutic. Again, the patient cannot tell me of how his foot has been but believes that his right great toe has never healed properly after January. He denies any fevers or shaking chills at [facility]. No nausea, vomiting, diarrhea, shortness of breath, or other. REVIEW OF SYSTEMS: Aside from foot pain, 10 systems are reviewed and all are negative. MEDICATIONS: Presently include vancomycin 1.5 g IV q.12 hours; piperacillin- tazobactam 3.375 g IV q.6 hours; Protonix 40 mg; Zofran; fish oil; Neurontin; ferrous sulfate; Tylenol. ALLERGIES: No known drug allergies. SOCIAL HISTORY: The patient tells me that he occasionally smokes marijuana. No tobacco. History of alcoholism in the past. The patient is not presently sexually active. 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 He states that when the recession happened, he was laid off and, unfortunately, lost his mobile home and became homeless. He is presently in [facility]. FAMILY HISTORY: Noncontributory. PHYSICAL EXAM: VITAL SIGNS: T-current 36.9, T-max is 36.8, heart rate 62, blood pressure 125/71, 94% on room air. GENERAL: Well-nourished, well- developed gentleman, nontoxic appearing, very talkative and tangential. No apparent distress. HEENT: Atraumatic, normocephalic. Pupils equal, round, reactive to light. Extraocular movements are intact. Wearing glasses. No conjunctival injection, petechia, or icterus. Mucous membranes moist. No oral lesions noted. Dentition in fair repair. No sinus process tenderness or discharge from the nares. NECK: Trachea is midline. No cervical or supraclavicular lymphadenopathy. CARDIOVASCULAR: S1, S2. No rubs, gallops, or murmurs. LUNGS: No increased respiratory effort. Clear to auscultation bilaterally. No rales, rhonchi, or wheeze. ABDOMEN: Soft. No organomegaly or tenderness to palpation. EXTREMITIES: No clubbing, cyanosis, or edema. The right lower extremity is notable for well-healed scars consistent with previous peripheral vascular surgery. The patient's right foot is notable for amputation of his 1st, 2nd, and 3rd toes. The remaining toes are intact, but his foot appears dirty. There is a large eschar over the area of amputation on the 1st toe with some minimal surrounding erythema. It is quite tender on the plantar aspect when I press down. The dorsum of his foot at the prior skin graft site is notable for a superficial ulceration with minimal surrounding pinkish erythema. There is no evidence of cellulitis of the lower extremity. The wound over the previous right great toe amputation site is malodorous, but I cannot express any purulence. The left foot is unremarkable. The right foot is cooler compared to the left but is pink and is not mottled at all. SKIN: No obvious rashes or embolic stigmata. NEUROLOGIC: The patient is alert and oriented x3 and moving all 4 extremities. LABORATORY DATA: Microbiologic data: Blood cultures x2 from the 9 are pending. Otherwise, no microbiology data at all. White blood cell count of 6.14, down from 9, hematocrit 39, platelet count of 283, 64% neutrophils. BUN and creatinine 10/0.8. Liver function tests: AST 26, ALT of 23, total bilirubin of 0.4. Radiographic data: Only the CTA with runoff as outlined above. IMPRESSION: 62-year-old male with protein-C deficiency and severe peripheral arterial disease status post recent complicated femoral-popliteal bypass in December, then amputation of the 1st, 2nd, and 3rd digits in January, who presents with complete occlusion of the bypass and nonhealing right foot wounds with minimal surrounding cellulitis. I am concerned he has a deeper infection with possible osteomyelitis at the right 1st toe amputation site as well. The nonhealing nature of his wounds is consistent with poor blood flow to these areas. Plan moving forward (MRI of foot/debridement, etc) will be contingent on the ability to revascularize his right lower extremity. For now, will continue antibiotics to prevent further infection in this area pending surgical plans. PLAN: 1. Continue Vancomycin and Piperacillin/tazobactam as is to prevent worsening infection of the right foot. 2. Hold off on MRI of this area pending revascularization plan. 3. Blood cultures are pending. 4. Watch renal function closely in the setting of vancomycin and piperacillin/ tazobactam combination. Thank you very much for consulting Infectious Diseases. We will continue to follow this patient with you. /[id number]/MODL MTDD
[2018-06-09] MEDS ORDERED: FLUMAZENIL 0.5 MG/5 ML MDV IVP ONE (14:09)
[2018-06-09] MEDS ORDERED: NALOXONE HCL 0.4 MG/ML INJ ONE (14:09)
[2018-06-09] MEDS ORDERED: MIDAZOLAM 2 MG/2 ML VIAL ONE (14:10)
[2018-06-09] MEDS ORDERED: fentaNYL 100 MCG/2 ML INJ ONE (14:10)
[2018-06-09] MEDS ORDERED: MIDAZOLAM 2 MG/2 ML VIAL IVP PRN (14:15)
[2018-06-09] MEDS ORDERED: MEPERIDINE 25 MG/ML SYR IVP PRN (14:15)
[2018-06-09] MEDS ORDERED: FLUMAZENIL 0.5 MG/5 ML MDV IVP PRN (14:15)
[2018-06-09] MEDS ORDERED: fentaNYL 100 MCG/2 ML INJ IVP PRN (14:15)
[2018-06-09] MEDS ORDERED: NALOXONE HCL 0.4 MG/ML INJ IVP PRN (14:15)
[2018-06-09] MEDS ORDERED: IOPAMIDOL (ISOVUE-300) 100 ML BTL ONE ×2 (14:21→15:16)
--- NOTE | 2018-06-09 15:07 | WOCRNPDOC ---
WOCRN Advanced Assessment Note - Skin Integrity Problem, Advanced Assess Right Dorsal Foot Arterial Ulcer Dressing Type: Open to Air Exudate Amount: None Farhana Wound Tissue: Blanching, Swollen Wound Bed Color: Brown, Yellow Wound Bed Constitution: Mixed Loose & Adhered Slough/Eschar Site Measurement - Head-to-Toe Length X Width X Depth (cm): 2.8x1.9x0.3 Extremity Temperature: Cool Skin Integrity Problem Comment: Chronic non-healing arterial ucler. Right foot is cool, 2+ pitting edema, LICENSED MENTAL HEALTH COUNSELOR >6 seconds. No palpable pulses. Toes on right foot are white with no LICENSED MENTAL HEALTH COUNSELOR and cold. In comparison, the left foot is warm, 2+ dorsal pedis pulse, no edema. Erythema extends approximately 1cm circumferentially from wound bed. Discussed with Alejandra Zavala NP, tonny to betadine wound since there is currently no blood flow to help with wound healing and wound is covered with dried adhered slough. Wound care will sign off. Please reconsult PRN. Right First Metatarsal Head Arterial Ulcer Dressing Type: Open to Air Exudate Amount: None Wound Bed Color: Black Wound Bed Constitution: Unstable Eschar Site Measurement - Head-to-Toe Length X Width X Depth (cm): 2.9x1.8x0.5. length running 11-5 o'clock 5.5cm Extremity Temperature: Cool Skin Integrity Problem Comment: Chronic non-healing arterial ulcer that is covered with stable eschar. Wound is located where the great toe has been amputated. Right foot is cool, 2+ pitting edema, LICENSED MENTAL HEALTH COUNSELOR >6 seconds. No palpable pulses. Toes on right foot are white with no LICENSED MENTAL HEALTH COUNSELOR and cold. In comparison, the left foot is warm, 2+ dorsal pedis pulse, no edema. Discussed with Alejandra Zavala NP, tonny to betadine wound since there is currently no blood flow to help with wound healing and wound is covered with unstable eschar. Moisture noted between the remaining toes, will order gauze to be placed between toes. Wound care will sign off. Please reconsult PRN.
[2018-06-09] MEDS ORDERED: HYDROmorphONE/DILAUDID 1 MG/ML INJ IVP ONE (15:50)
[2018-06-09] MEDS ORDERED: HYDROmorphONE/DILAUDID 2 MG/ML INJ ONE (15:52)
[2018-06-09] MEDS ORDERED: ALTEPLASE 2 MG VIAL MISC ONE ×2 (16:00→18:45)
[2018-06-09] MEDS ORDERED: ALTEPLASE 5 MG in NS 100 ML IV SCH (16:00)
[2018-06-09] MEDS ORDERED: ALTEPLASE 2 MG VIAL IVP ONE (16:00)
[2018-06-09] MEDS ORDERED: ALTEPLASE 2 MG VIAL ONE (16:01)
--- NOTE | 2018-06-09 16:24 | PDPROPOC ---
Sedation Plan of Care ASA Classification: ASA 3 Mallampati Score: Class 2 Mallampati Reference Image:
[2018-06-09] MEDS ORDERED: ONDANSETRON 4 MG/2 ML VIAL IVP PRN (16:25)
[2018-06-09] MEDS ORDERED: PROMETHAZINE HCL 25 MG/ML INJ IVP PRN (16:25)
--- NOTE | 2018-06-09 16:25 | PDRADPN ---
Radiology Procedure Note Date of Procedure: 06/09/18 Radiologist: Diann Naranjo Anesthesia: IV Sedation Pre-op Diagnosis: RLE arterial lysis Post-op Diagnosis: same Procedure: day 1 lysis, infusion catheter placed into fem-DP graft Inf/Abcess present in the surg proc area at time of surgery?: No
--- NOTE | 2018-06-09 16:39 | ASMTCASEMG ---
Living Arrangements What is your living Answers: Alone arrangement? Who do you live with? Type Of Residence What kind of residence do Answers: Retirement Facility you live in? Type of Residence Facility Name Notes: [facility] LTC Discharge Plan Comments Coordination Status Comments Notes: Pt is a 62 y/o man admitted for right lower extremity pain and difficulty w/ ambulation. Pt lives at [facility] under LTC. Therapies have been ordered and awaiting recommendations. ID is consulting on this case. Needs are TBD at this time. CM to follow. Plan: Eventually return to [facility] Date Signed: 06/09/2018 04:39 PM Electronically Signed By:PIPPA Mayen
[2018-06-09] MEDS: GABAPENTIN 400 MG CAP PO SCH ×2 (17:09→21:59)
[2018-06-09] MEDS: ACETAMINOPHEN 500 MG TAB PO SCH ×2 (17:09→21:59)
[2018-06-09] MEDS: HYDROmorphONE/DILAUDID 1 MG/ML INJ IVP PRN (18:19)
[2018-06-09] MEDS: LATANOPROST 0.005% 2.5 ML OPHT DROPS RTEYE SCH (20:48)
[2018-06-09] MEDS: SENNOSIDES/DOCUSATE SODIUM TAB PO SCH (20:49)
[2018-06-09] MEDS: ALTEPLASE 5 MG in NS 100 ML IV SCH (21:32)
[2018-06-09] MEDS: LORazepam 1 MG TAB PO PRN (21:59)
[2018-06-10] MEDS: VANCOMYCIN 1.5 GM in NS 250 ML IV SCH ×2 (00:50→12:30)
[2018-06-10] MEDS: ALTEPLASE 5 MG in NS 100 ML IV SCH ×3 (02:23→15:41)
[2018-06-10] MEDS: oxyCODONE IR 5 MG TAB PO PRN (03:02)
[2018-06-10 05:18] LABS: PLATELET COUNT 257 10^3/uL (150-400)
[2018-06-10] MEDS: PIPERACILLIN/TAZO 3.375 GM/DEX 50 ML IV SCH ×3 (05:44→21:07)
[2018-06-10] MEDS: LORazepam 1 MG TAB PO PRN ×2 (07:10→15:46)
[2018-06-10] MEDS: HYDROmorphONE/DILAUDID 1 MG/ML INJ IVP PRN ×3 (07:44→20:33)
[2018-06-10] MEDS: PANTOPRAZOLE SODIUM 40 MG TAB PO SCH (09:01)
[2018-06-10] MEDS: GABAPENTIN 400 MG CAP PO SCH ×3 (09:01→20:27)
[2018-06-10] MEDS: SENNOSIDES/DOCUSATE SODIUM TAB PO SCH ×2 (09:09→20:27)
[2018-06-10] MEDS: OMEGA-3 FATTY ACIDS 1,000 MG CAP PO SCH (09:09)
[2018-06-10] MEDS: FERROUS SULFATE 325 MG TAB PO SCH (09:09)
[2018-06-10] MEDS: POLYETHYLENE GLYCOL 3350 17 GM PKT PO SCH (09:09)
[2018-06-10] MEDS: ACETAMINOPHEN 500 MG TAB PO SCH ×3 (09:09→21:33)
[2018-06-10] MEDS: GLUCOSAMINE SULF 500 MG CAP PO SCH (09:09)
--- NOTE | 2018-06-10 09:39 | PDINTPN ---
Wardrobe Specialist Progress Note Assessment/Plan: Assessment/plan: * Severe peripheral vascular disease * Hypercoagulable state with protein C deficiency * Occluded and infected bypass graft-status post interventional radiology localized tPA -some bruising and bleeding about catheter -follow H&H closely -antibiotics per Infectious Disease * Peripheral neuropathy * Pain-reasonably well controlled * VT prophylaxis * Stress ulcer prophylaxis Subjective: Resting comfortably. No current complaints. Objective: Vital Signs Temp Pulse Resp BP Pulse Ox 36.9 C 76 20 151/86 H 99 06/09/18 22:00 06/10/18 08:59 06/10/18 08:59 06/10/18 08:59 06/10/18 08:59 Laboratory Results 06/10/18 05:02 06/10/18 05:02 06/09/18 06/10/18 06/11/18 05:59 05:59 05:59 Intake Total 923 1476 Output Total 875 1750 450 Balance 48 -274 -450 PT 20.8 SEC (12.0-15.0) H 06/09/18 07:45 INR 1.78 (0.83-1.16) H 06/09/18 07:45 - Time Spent With Patient Time Spent With Patient: 25 min of time spent with patient, over 1/2 involved with coordination of care or counseling Case discussed with nursing Physical Exam - Physical Exam General Appearance: alert, no apparent distress EENT: PERRL/EOMI Neck: non-tender, full range of motion, supple, normal inspection Respiratory: chest non-tender, lungs clear, normal breath sounds Cardiac/Chest: normal peripheral pulses, regular rate, rhythm Abdomen: normal bowel sounds, non-tender, soft Male Genitalia: deferred Rectal: deferred Skin: normal color, warm/dry Extremities: No non-tender Neuro/Psych: alert ICD10 Worksheet Patient Problems: Problems Problem Status Onset Cellulitis of foot Acute History of femoropopliteal bypass Acute Arterial occlusion, lower extremity Acute DVT (deep venous thrombosis) Acute Elevated INR Acute Pulmonary emboli Acute
--- NOTE | 2018-06-10 10:35 | PCMIDPN ---
Assessment/Plan: 1. Nonhealing wounds right foot with surrounding cellulitis: Cellulitis is improved. The wound on the foot dorsum is now fluctuant; I was able to express approximately 3 cc of pus which was sent for Gram stain and culture. Continue same antibiotics pending culture results. Again, over arching plan for his foot wounds (need for MRI/debridement) is contingent on ability to revascularize his leg. There will need to be an ongoing discussion with General surgery; I am concerned the patient will lose his foot moving forward. Hold off on imaging for now. Vancomycin trough this morning. Creatinine stable. 06/10/18 10:36 Subjective: The patient is now on tPA---blood flow through graft is improved; the nurse tells me she is able to get a tibialis posterior pulse now. Objective: Vancomycin 1.5 g IV q.12 hours day 2 Zosyn 3.375 g IV q.6 hours day 2 No fevers Vital Signs Temp Pulse Resp BP Pulse Ox 36.9 C 77 12 125/79 H 98 06/09/18 22:00 06/10/18 10:00 06/10/18 10:00 06/10/18 10:00 06/10/18 10:00 Laboratory Results 06/10/18 10:05 06/10/18 05:02 06/09/18 06/10/18 06/11/18 05:59 05:59 05:59 Intake Total 923 1476 Output Total 875 1750 450 Balance 48 -274 -450 ESR 40 MM/HR (0-20) H 06/09/18 06:18 C-Reactive Protein 35.1 mg/L (<10.0) H 06/09/18 06:18 Blood cultures x2 negative - Physical Exam General Appearance: alert, no apparent distress EENT: pharynx normal, No thrush Respiratory: lungs clear Extremities: other (Right foot: Dry eschar base of amputation site 1st digit. Extreme pain with palpation plantar aspect of 1st metatarsal head. Quarter- sized wound on the foot dorsum with surrounding erythema. The wound is now fluctuant, and I was able to express 3 cc of purulent drainage. Pinkish erythema seems to have improved compared with yesterday.) ICD10 Worksheet Patient Problems: Problems Problem Status Onset Cellulitis of foot Acute History of femoropopliteal bypass Acute Arterial occlusion, lower extremity Acute DVT (deep venous thrombosis) Acute Elevated INR Acute Pulmonary emboli Acute
--- NOTE | 2018-06-10 11:36 | HOSPPROG ---
Hospitalist Progress Note Assessment/Plan: 62 yo M w pvd, prot C deficiency here w occulded graft graft occlusion: on heparin gtt catheter directed thrombolysis in progress cellulitis: vanc/zosyn pus expressed from wound, sent for culture prot C: on heparin acknowledges recent subtherapeutic INR pain: well controlled on orals proph: anticoaulated dispo: stepdown Subjective: case d/w dr bhatti. pus from R foot. R dp pulse dopplerable Objective: Vital Signs Temp Pulse Resp BP Pulse Ox 36.9 C 77 12 125/79 H 98 06/09/18 22:00 06/10/18 10:00 06/10/18 10:00 06/10/18 10:00 06/10/18 10:00 Laboratory Results 06/10/18 10:05 06/10/18 05:02 06/09/18 06/10/18 06/11/18 05:59 05:59 05:59 Intake Total 923 1476 Output Total 875 1750 575 Balance 48 -274 -575 PT 20.8 SEC (12.0-15.0) H 06/09/18 07:45 INR 1.78 (0.83-1.16) H 06/09/18 07:45 - Physical Exam Constitutional: no apparent distress, appears nourished Eyes: PERRL, anicteric sclera Ears, Nose, Mouth, Throat: moist mucous membranes, hearing normal Cardiovascular: regular rate and rhythym, no murmur, rub, or gallop Respiratory: no respiratory distress, no rales or rhonchi Gastrointestinal: normoactive bowel sounds, soft, non-tender abdomen Genitourinary: no bladder fullness, No xiao in urethra Skin: warm, normal color Musculoskeletal: other (R foot cool) Neurologic: AAOx3, sensation intact bilaterally ICD10 Worksheet Patient Problems: Problems Problem Status Onset Cellulitis of foot Acute History of femoropopliteal bypass Acute Arterial occlusion, lower extremity Acute DVT (deep venous thrombosis) Acute Elevated INR Acute Pulmonary emboli Acute
--- NOTE | 2018-06-10 12:40 | SOAPPROG ---
MILAN Progress Note Assessment/Plan: Assessment: PATIENT IS STABLE, COMFORTABLE BUT NO OBVIOUS SUCCESS FROM THROMBOLYSIS SO FOR WHICH HAD DIET HAS MUCH REAL CHANCE OF SUCCESS HE DOES HAVE A FAINT DOPPLERABLE POSTERIOR TIBIAL PULSE BUT HIS TOES ARE LESS PINK RISKS AND OPTIONS FULLY DISCUSSED Plan: FOLLOW-UP ANGIOGRAM/WILL PROBABLY BE FACING A BK AMPUTATION 06/10/18 12:39 Objective: Vital Signs Temp Pulse Resp BP Pulse Ox 36.9 C 82 26 H 135/78 H 98 06/09/18 22:00 06/10/18 12:00 06/10/18 12:00 06/10/18 12:00 06/10/18 12:00 Laboratory Results 06/10/18 10:05 06/10/18 05:02 06/09/18 06/10/18 06/11/18 05:59 05:59 05:59 Intake Total 923 1476 Output Total 875 1750 575 Balance 48 -274 -575 PT 20.8 SEC (12.0-15.0) H 06/09/18 07:45 INR 1.78 (0.83-1.16) H 06/09/18 07:45 ICD10 Worksheet Patient Problems: Problems Problem Status Onset Cellulitis of foot Acute History of femoropopliteal bypass Acute Arterial occlusion, lower extremity Acute DVT (deep venous thrombosis) Acute Elevated INR Acute Pulmonary emboli Acute
[2018-06-10] MEDS ORDERED: NS IV ONE (16:15)
[2018-06-10] MEDS ORDERED: [UNRECOGNIZED DRUG - OTHER] IV ONE (16:15)
[2018-06-10] MEDS ORDERED: IOPAMIDOL (ISOVUE-300) 100 ML BTL ONE (17:03)
[2018-06-10] MEDS ORDERED: LORazepam 2 MG/ML INJ IVP ONE (17:30)
[2018-06-10] MEDS ORDERED: HEPARIN 10,000 UNIT/10 ML MDV (1,000 UNIT/ML) IVP PRN (17:49)
[2018-06-10] MEDS ORDERED: PROTAMINE SULFATE 50 MG/5 ML VIAL IVP PRN (17:49)
[2018-06-10] MEDS ORDERED: NALOXONE HCL 0.4 MG/ML INJ IVP PRN (17:49)
[2018-06-10] MEDS ORDERED: MIDAZOLAM 2 MG/2 ML VIAL IVP PRN (17:49)
[2018-06-10] MEDS ORDERED: ALTEPLASE 2 MG VIAL IVP PRN (17:49)
[2018-06-10] MEDS ORDERED: GLUCAGON HCL 1 MG VIAL IVP PRN (17:49)
[2018-06-10] MEDS ORDERED: fentaNYL 100 MCG/2 ML INJ IVP PRN (17:49)
[2018-06-10] MEDS ORDERED: MEPERIDINE 25 MG/ML SYR IVP PRN (17:49)
[2018-06-10] MEDS ORDERED: FLUMAZENIL 0.5 MG/5 ML MDV IVP PRN (17:49)
[2018-06-10] MEDS ORDERED: HYDROmorphONE/DILAUDID 2 MG/ML INJ ONE (17:52)
[2018-06-10] MEDS ORDERED: NITROGLYCERIN/D5W 50 MG/250 ML BOTTLE IV ONE (19:16)
[2018-06-10] MEDS ORDERED: DEXMEDETOMIDINE/NS 4MCG/ML 50 ML BTL IV ONE (20:04)
[2018-06-10] MEDS: DEXMEDETOMIDINE IN 0.9 % NACL 50 ML IV SCH ×2 (20:20→21:28)
[2018-06-10] MEDS: LATANOPROST 0.005% 2.5 ML OPHT DROPS RTEYE SCH (20:28)
[2018-06-10] MEDS: HEPARIN/DEXTROSE 500 ML IV SCH (21:00)
[2018-06-10] MEDS: NS 1,000 ML IV SCH (21:38)
--- NOTE | 2018-06-11 00:03 | PDRADPN ---
Radiology Procedure Note Date of Procedure: 06/11/18 Radiologist: Diann Naranjo Anesthesia: IV Sedation Pre-op Diagnosis: bypass graft clot Post-op Diagnosis: same Finding(s): improved patency of graft, with residual stenosis/stricture at the proximal saphenous vein section. Inf/Abcess present in the surg proc area at time of surgery?: No
[2018-06-11] MEDS ORDERED: DEXMEDETOMIDINE HCL 400 MCG in NS 100 ML IV SCH (00:30)
[2018-06-11] MEDS: VANCOMYCIN 1.5 GM in NS 250 ML IV SCH ×2 (01:01→12:29)
[2018-06-11] MEDS: PIPERACILLIN/TAZO 3.375 GM/DEX 50 ML IV SCH ×4 (03:05→21:41)
[2018-06-11] MEDS: ACETAMINOPHEN 500 MG TAB PO SCH ×3 (08:06→21:41)
[2018-06-11] MEDS: GABAPENTIN 400 MG CAP PO SCH ×3 (08:14→21:42)
[2018-06-11] MEDS: FERROUS SULFATE 325 MG TAB PO SCH (08:14)
[2018-06-11] MEDS: SENNOSIDES/DOCUSATE SODIUM TAB PO SCH ×2 (08:14→21:42)
[2018-06-11] MEDS: GLUCOSAMINE SULF 500 MG CAP PO SCH (08:15)
[2018-06-11] MEDS: POLYETHYLENE GLYCOL 3350 17 GM PKT PO SCH (08:15)
[2018-06-11] MEDS: PANTOPRAZOLE SODIUM 40 MG TAB PO SCH (08:15)
[2018-06-11] MEDS: OMEGA-3 FATTY ACIDS 1,000 MG CAP PO SCH (08:15)
--- NOTE | 2018-06-11 09:00 | PDINTPN ---
Drainman Progress Note Assessment/Plan: Assessment/plan: * Severe peripheral vascular disease * Hypercoagulable state with protein C deficiency * Occluded and infected bypass graft-status post interventional radiology localized tPA -patient will likely be assessed for amputation * Peripheral neuropathy * Pain-reasonably well controlled * VT prophylaxis * Stress ulcer prophylaxis Subjective: Resting comfortably. Pain well controlled. Increased anxiety/pain last night requiring Precedex Objective: Vital Signs Temp Pulse Resp BP Pulse Ox 36.6 C 66 18 117/65 97 06/11/18 08:00 06/11/18 08:00 06/11/18 08:00 06/11/18 08:00 06/11/18 08:00 Microbiology 06/10/18 10:35 Gram Stain - Final Foot - Swab Laboratory Results 06/10/18 10:05 06/10/18 05:02 06/10/18 06/11/18 06/12/18 05:59 05:59 05:59 Intake Total 1476 1563 Output Total 1750 1275 Balance -274 288 PT 20.8 SEC (12.0-15.0) H 06/09/18 07:45 INR 1.78 (0.83-1.16) H 06/09/18 07:45 - Time Spent With Patient Time Spent With Patient: 25 min of time spent with patient, over 1/2 involved with coordination of care counseling. Case discussed with surgery and nursing Physical Exam - Physical Exam General Appearance: WD/WN, alert, no apparent distress EENT: PERRL/EOMI Neck: non-tender, full range of motion, supple, normal inspection Respiratory: chest non-tender, lungs clear, normal breath sounds Cardiac/Chest: normal peripheral pulses, regular rate, rhythm Abdomen: normal bowel sounds, non-tender, soft Male Genitalia: deferred Rectal: deferred Skin: normal color Neuro/Psych: alert, normal mood/affect ICD10 Worksheet Patient Problems: Problems Problem Status Onset Cellulitis of foot Acute History of femoropopliteal bypass Acute Arterial occlusion, lower extremity Acute DVT (deep venous thrombosis) Acute Elevated INR Acute Pulmonary emboli Acute
[2018-06-11] MEDS: oxyCODONE IR 5 MG TAB PO PRN (09:21)
[2018-06-11] MEDS: HEPARIN/DEXTROSE 500 ML IV SCH (10:20)
--- NOTE | 2018-06-11 10:22 | PCMIDPN ---
Assessment/Plan: 1. Nonhealing wounds right foot with surrounding cellulitis in patient with severe PAD: Foot looks more mottled and cool today. Cellulitis is improved, but wounds will not heal without blood flow. Pt will likely need BKA. Continue antibiotics until definitive plans made. Contact isolation for MRSA. 06/11/18 10:22 Subjective: Called micro lab to see what is growing in his foot; they told me that he has MRSA nursing staff for contact isolation. Objective: Vancomycin 1.5 g IV q.12 hours day 3 Zosyn 3.375 g IV q.6 hours day 3 No fevers Vital Signs Temp Pulse Resp BP Pulse Ox 36.6 C 66 18 117/65 97 06/11/18 08:00 06/11/18 08:00 06/11/18 08:00 06/11/18 08:00 06/11/18 08:00 Microbiology 06/10/18 10:35 Gram Stain - Final Foot - Swab Laboratory Results 06/10/18 10:05 06/10/18 05:02 06/10/18 06/11/18 06/12/18 05:59 05:59 05:59 Intake Total 1476 1563 325 Output Total 1750 1275 225 Balance -274 288 100 ESR 40 MM/HR (0-20) H 06/09/18 06:18 C-Reactive Protein 35.1 mg/L (<10.0) H 06/09/18 06:18 Blood cultures June 08 no growth Wound culture June 10 2+ Gram-positive cocci 1+ gram-negative rods culture preliminary per micro lab MRSA - Physical Exam General Appearance: other (Complaining of right lower extremity/foot pain) Respiratory: lungs clear Extremities: other (Right foot: Feels cooler and looks more mottled to me today. Quarter-size ulceration on the foot dorsum is still oozing bloody purulence. Draining on its own. Right great toe amputation site with a large dry eschar. Significant pain plantar aspect of 1st metatarsal head. Cellulitic component has resolved.) ICD10 Worksheet Patient Problems: Problems Problem Status Onset Cellulitis of foot Acute History of femoropopliteal bypass Acute Arterial occlusion, lower extremity Acute DVT (deep venous thrombosis) Acute Elevated INR Acute Pulmonary emboli Acute
--- NOTE | 2018-06-11 10:49 | SOAPPROG ---
MILAN Progress Note Assessment/Plan: Assessment: PATIENT IS STABLE, COMFORTABLE BUT NO OBVIOUS SUCCESS FROM THROMBOLYSIS SO FOR WHICH HAD DIET HAS MUCH REAL CHANCE OF SUCCESS HE DOES HAVE A FAINT DOPPLERABLE POSTERIOR TIBIAL PULSE BUT HIS TOES ARE LESS PINK RISKS AND OPTIONS FULLY DISCUSSED Plan: FOLLOW-UP ANGIOGRAM/WILL PROBABLY BE FACING A BK AMPUTATION 06/10/18 12:39 06/11/18 10:48 Some flow in his graft are reinstated but none in the distal portion and no significant runoff on angiography Foot is stable and not particularly painful at rest It seems minimal benefit achievable from bypass exploration and revision of the stenotic area in the face of no significant runoff He is probably facing a BK amputation in the near future Objective: Vital Signs Temp Pulse Resp BP Pulse Ox 36.6 C 66 18 117/65 97 06/11/18 08:00 06/11/18 08:00 06/11/18 08:00 06/11/18 08:00 06/11/18 08:00 Microbiology 06/10/18 10:35 Gram Stain - Final Foot - Swab Laboratory Results 06/10/18 10:05 06/10/18 05:02 06/10/18 06/11/18 06/12/18 05:59 05:59 05:59 Intake Total 1476 1563 325 Output Total 1750 1275 225 Balance -274 288 100 PT 20.8 SEC (12.0-15.0) H 06/09/18 07:45 INR 1.78 (0.83-1.16) H 06/09/18 07:45 ICD10 Worksheet Patient Problems: Problems Problem Status Onset Cellulitis of foot Acute History of femoropopliteal bypass Acute Arterial occlusion, lower extremity Acute DVT (deep venous thrombosis) Acute Elevated INR Acute Pulmonary emboli Acute
[2018-06-11] MEDS: HYDROmorphONE/DILAUDID 1 MG/ML INJ IVP PRN (12:05)
[2018-06-11] MEDS ORDERED: HYDROmorphONE/DILAUDID 1 MG/ML INJ IVP PRN (13:00)
--- NOTE | 2018-06-11 14:35 | HOSPPROG ---
Hospitalist Progress Note Assessment/Plan: 62 yo M w pvd, prot C deficiency here w occulded graft graft occlusion: on heparin gtt s/p catheter directed foot looks worse at risk for needing BKA cellulitis: vanc/zosyn pus expressed from wound, sent for culture prot C: on heparin acknowledges recent subtherapeutic INR pain: well controlled on orals proph: anticoaulated dispo: stepdown Subjective: case d/w gilma moya and davy. foot worse today Objective: Vital Signs Temp Pulse Resp BP Pulse Ox 36.6 C 79 16 147/77 H 96 06/11/18 13:51 06/11/18 13:51 06/11/18 13:51 06/11/18 13:51 06/11/18 13:51 Microbiology 06/10/18 10:35 Gram Stain - Final Foot - Swab Laboratory Results 06/11/18 10:50 06/11/18 10:50 06/10/18 06/11/18 06/12/18 05:59 05:59 05:59 Intake Total 1476 1563 875 Output Total 1750 1275 226 Balance -274 288 649 PT 20.8 SEC (12.0-15.0) H 06/09/18 07:45 INR 1.78 (0.83-1.16) H 06/09/18 07:45 - Physical Exam Constitutional: appears nourished, other (uncomfortable) Eyes: PERRL Ears, Nose, Mouth, Throat: moist mucous membranes, hearing normal Cardiovascular: regular rate and rhythym, no murmur, rub, or gallop Respiratory: no respiratory distress, no rales or rhonchi Gastrointestinal: normoactive bowel sounds, soft, non-tender abdomen Genitourinary: No xiao in urethra Skin: warm Musculoskeletal: other (R foot mottled and cool) Neurologic: AAOx3, sensation intact bilaterally Psychiatric: interacting appropriately, not anxious ICD10 Worksheet Patient Problems: Problems Problem Status Onset Cellulitis of foot Acute History of femoropopliteal bypass Acute Arterial occlusion, lower extremity Acute DVT (deep venous thrombosis) Acute Elevated INR Acute Pulmonary emboli Acute
[2018-06-11] MEDS: LACTULOSE 20 GM/30 ML UDCUP PO PRN (15:15)
[2018-06-11] MEDS: NS 1,000 ML IV SCH (16:19)
[2018-06-11] MEDS: HYDROmorphONE/DILAUDID 1 MG/ML INJ IVP SCH ×3 (20:03→20:10)
[2018-06-11] MEDS: LATANOPROST 0.005% 2.5 ML OPHT DROPS RTEYE SCH (22:08)
[2018-06-12] MEDS: HEPARIN/DEXTROSE 500 ML IV SCH ×2 (00:03→17:03)
[2018-06-12] MEDS: VANCOMYCIN 1.5 GM in NS 250 ML IV SCH ×2 (00:04→15:01)
[2018-06-12] MEDS: PIPERACILLIN/TAZO 3.375 GM/DEX 50 ML IV SCH ×4 (02:30→21:58)
[2018-06-12] MEDS: LACTULOSE 20 GM/30 ML UDCUP PO PRN (02:46)
[2018-06-12] MEDS ORDERED: HEPARIN 10,000 UNIT/10 ML MDV (1,000 UNIT/ML) ONE (08:15)
[2018-06-12] MEDS: NS 1,000 ML IV SCH (08:55)
--- NOTE | 2018-06-12 10:26 | SOAPPROG ---
MILAN Progress Note Assessment/Plan: Assessment: 62 y/o M admitted for occlusion of R fem-tib bypass graft S/p thrombolysis Repeat angiography reveals a stricture at the proximal saphenous vein graft and no runoff S: No complaints. Pain is well controlled. O: Alert Afebrile RRR No increased WOB RLE: absent pedal pulses, wounds well dressed Plan: Revision to bypass graft possible, but unlikely to be successful. Continue heparin drip. Will likely need amputation in near future. Pt understands and agrees that amputation is likely his next option. 06/12/18 10:13 Objective: Vital Signs Temp Pulse Resp BP Pulse Ox 37.0 C 74 16 127/81 H 96 06/12/18 08:00 06/12/18 08:00 06/12/18 08:00 06/12/18 08:00 06/12/18 08:00 Microbiology 06/10/18 10:35 Gram Stain - Final Foot - Swab Laboratory Results 06/12/18 05:30 06/12/18 05:30 06/11/18 06/12/18 06/13/18 05:59 05:59 05:59 Intake Total 1563 1175 Output Total 1275 1026 400 Balance 288 149 -400 PT 20.8 SEC (12.0-15.0) H 06/09/18 07:45 INR 1.78 (0.83-1.16) H 06/09/18 07:45 ICD10 Worksheet Patient Problems: Problems Problem Status Onset Cellulitis of foot Acute History of femoropopliteal bypass Acute Arterial occlusion, lower extremity Acute DVT (deep venous thrombosis) Acute Elevated INR Acute Pulmonary emboli Acute
[2018-06-12] MEDS: ACETAMINOPHEN 500 MG TAB PO SCH ×3 (10:49→22:48)
[2018-06-12] MEDS: PANTOPRAZOLE SODIUM 40 MG TAB PO SCH (10:49)
[2018-06-12] MEDS: GABAPENTIN 400 MG CAP PO SCH ×3 (10:50→22:48)
[2018-06-12] MEDS: OMEGA-3 FATTY ACIDS 1,000 MG CAP PO SCH (10:50)
[2018-06-12] MEDS: FERROUS SULFATE 325 MG TAB PO SCH (10:50)
[2018-06-12] MEDS: GLUCOSAMINE SULF 500 MG CAP PO SCH (10:51)
[2018-06-12] MEDS: SENNOSIDES/DOCUSATE SODIUM TAB PO SCH ×2 (11:15→21:58)
[2018-06-12] MEDS: POLYETHYLENE GLYCOL 3350 17 GM PKT PO SCH (11:15)
--- NOTE | 2018-06-12 12:04 | ASMTCMCOM ---
CM Note CM Note Notes: Pt will most likely need a BKA. Surgery will contact to evaluate. Updates sent to Megan Freire. CM to follow. Plan: Megan Freire Date Signed: 06/12/2018 12:03 PM Electronically Signed By:PIPPA Mayen
--- NOTE | 2018-06-12 12:56 | PCMIDPN ---
Assessment/Plan: Assessment: Right lower extremity cellulitis in setting of chronic wounds in the foot secondary to severe peripheral arterial disease. Patient has a graft in the right lower extremity which is thrombosed and is currently on heparin drip to try to remedy this. Exam does not reveal significantly cool foot today. Will continue both the vancomycin and Zosyn until thin allergy of the attempt to revascularize the area is concluded upon. Plan: 1. Continue both vancomycin and Zosyn. 2. Follow clinical course and opinions of vascular surgery. 06/12/18 12:54 Subjective: Patient is resting in his hospital bed. He reports no new complaints regarding lower extremities. Denies any fevers or chills. Denies rash. Objective: Vancomycin # 4 Zosyn # 4 Vital Signs Temp Pulse Resp BP Pulse Ox 37.0 C 74 16 127/81 H 96 06/12/18 08:00 06/12/18 08:00 06/12/18 08:00 06/12/18 08:00 06/12/18 08:00 Microbiology 06/10/18 10:35 Gram Stain - Final Foot - Swab Laboratory Results 06/12/18 05:30 06/12/18 05:30 06/11/18 06/12/18 06/13/18 05:59 05:59 05:59 Intake Total 1563 1175 Output Total 1275 1026 400 Balance 288 149 -400 ESR 40 MM/HR (0-20) H 06/09/18 06:18 C-Reactive Protein 35.1 mg/L (<10.0) H 06/09/18 06:18 - Physical Exam General Appearance: WD/WN, alert, no apparent distress, non-toxic Respiratory: lungs clear, normal breath sounds, No respiratory distress Cardiac/Chest: regular rate, rhythm, No tachycardia Extremities: non-tender, No normal inspection, No inflammation, No erythema Skin: normal color, warm/dry, No rash Neuro/Psych: alert, normal mood/affect, oriented x 3 ICD10 Worksheet Patient Problems: Problems Problem Status Onset Cellulitis of foot Acute History of femoropopliteal bypass Acute Arterial occlusion, lower extremity Acute DVT (deep venous thrombosis) Acute Elevated INR Acute Pulmonary emboli Acute
--- NOTE | 2018-06-12 15:19 | HOSPPROG ---
Hospitalist Progress Note Assessment/Plan: 62 yo M w pvd, prot C deficiency here w occulded graft graft occlusion: on heparin gtt s/p catheter directed foot looks worse at risk for needing BKA 06/12- foot looks better hematoma: enlarging check u/s to look for pseudoaneurysm cellulitis: vanc/zosyn pus expressed from wound, sent for culture prot C: on heparin acknowledges recent subtherapeutic INR pain: well controlled on orals constipation: moving bowels proph: anticoaulated dispo: stepdown Subjective: case d/w dr de jesus. foot warmer and less mottled. arterial access site oozing Objective: Vital Signs Temp Pulse Resp BP Pulse Ox 37.0 C 74 16 127/81 H 96 06/12/18 08:00 06/12/18 08:00 06/12/18 08:00 06/12/18 08:00 06/12/18 08:00 Microbiology 06/10/18 10:35 Gram Stain - Final Foot - Swab Laboratory Results 06/12/18 05:30 06/12/18 05:30 06/11/18 06/12/18 06/13/18 05:59 05:59 05:59 Intake Total 1563 1175 Output Total 1275 1026 700 Balance 288 149 -700 PT 20.8 SEC (12.0-15.0) H 06/09/18 07:45 INR 1.78 (0.83-1.16) H 06/09/18 07:45 - Physical Exam Constitutional: no apparent distress, appears nourished Eyes: PERRL, anicteric sclera Ears, Nose, Mouth, Throat: moist mucous membranes, hearing normal Cardiovascular: regular rate and rhythym, no murmur, rub, or gallop Respiratory: no respiratory distress, no rales or rhonchi Gastrointestinal: normoactive bowel sounds, soft, non-tender abdomen, other Genitourinary: other (groin access site w sig ecchymosis and plum sized hematoma ), No xiao in urethra Musculoskeletal: full muscle strength, other (R foot warmer and less mottled than yesterday. foul odor. L DP pulse 2+) Neurologic: AAOx3 Psychiatric: interacting appropriately, not anxious ICD10 Worksheet Patient Problems: Problems Problem Status Onset Cellulitis of foot Acute History of femoropopliteal bypass Acute Arterial occlusion, lower extremity Acute DVT (deep venous thrombosis) Acute Elevated INR Acute Pulmonary emboli Acute
[2018-06-12] MEDS: oxyCODONE IR 5 MG TAB PO PRN (15:35)
[2018-06-12] MEDS: LATANOPROST 0.005% 2.5 ML OPHT DROPS RTEYE SCH (21:59)
[2018-06-12] MEDS: ZOLPIDEM TARTRATE 5 MG TAB PO PRN (23:57)
[2018-06-13] MEDS: VANCOMYCIN 1.5 GM in NS 250 ML IV SCH ×2 (00:01→12:45)
[2018-06-13] MEDS: PIPERACILLIN/TAZO 3.375 GM/DEX 50 ML IV SCH ×4 (04:02→21:08)
[2018-06-13] MEDS: POLYETHYLENE GLYCOL 3350 17 GM PKT PO SCH (09:04)
[2018-06-13] MEDS: PANTOPRAZOLE SODIUM 40 MG TAB PO SCH (09:04)
[2018-06-13] MEDS: OMEGA-3 FATTY ACIDS 1,000 MG CAP PO SCH (09:04)
[2018-06-13] MEDS: FERROUS SULFATE 325 MG TAB PO SCH (09:04)
[2018-06-13] MEDS: GLUCOSAMINE SULF 500 MG CAP PO SCH (09:04)
[2018-06-13] MEDS: SENNOSIDES/DOCUSATE SODIUM TAB PO SCH ×2 (09:04→21:10)
[2018-06-13] MEDS: GABAPENTIN 400 MG CAP PO SCH ×3 (09:04→21:09)
[2018-06-13] MEDS: ACETAMINOPHEN 500 MG TAB PO SCH ×3 (09:11→21:09)
[2018-06-13] MEDS: oxyCODONE IR 5 MG TAB PO PRN ×3 (09:37→19:38)
[2018-06-13] MEDS: NS 1,000 ML IV SCH (09:37)
--- NOTE | 2018-06-13 13:03 | HOSPPROG ---
Hospitalist Progress Note Assessment/Plan: * PVD with graft occlusion -s/p catheter directed tpa - now IV heparin gtt -will likely need BKA * Protein C deficiency with severe hypercoagulable state -subtherapeutic INR on presentation -now IV heparin gtt * Groin hematoma - clinically improved -US negative for pseudoaneurysm -watch H/H * Cellulitis with chronic non-healing foot wounds -IV Vanco + Zosyn (polymicrobial including MRSA) Subjective: Severe pain RLE - not controlled on PO oxy - now getting IV morphine Objective: Vital Signs Temp Pulse Resp BP Pulse Ox 36.7 C 59 L 16 112/70 98 06/13/18 07:50 06/13/18 07:50 06/13/18 07:50 06/13/18 07:50 06/13/18 07:50 Microbiology 06/10/18 10:35 Gram Stain - Final Foot - Swab Laboratory Results 06/12/18 05:30 06/12/18 05:30 06/12/18 06/13/18 06/14/18 05:59 05:59 05:59 Intake Total 1175 650 Output Total 1026 1200 400 Balance 149 -550 -400 PT 20.8 SEC (12.0-15.0) H 06/09/18 07:45 INR 1.78 (0.83-1.16) H 06/09/18 07:45 Old chart reviewed - complex h/o bypass to LE, h/o recurrent PE/DVT Groin US - no pseudoaneurysm, 4cm hematoma ICD10 Worksheet Patient Problems: Problems Problem Status Onset Cellulitis of foot Acute History of femoropopliteal bypass Acute Arterial occlusion, lower extremity Acute DVT (deep venous thrombosis) Acute Elevated INR Acute Pulmonary emboli Acute
--- NOTE | 2018-06-13 14:43 | SOAPPROG ---
SOAP Progress Note Assessment/Plan: Assessment/Plan: 62 Y M s/p fem tib bypass now clotted, unsuccessful TPA lysis. Cellulitis, nonhealing foot wounds. On heparin gtt. Subtherapeutic INR on admission. Will likely need BKA, likely this stay, possibly in next several days. Discussed this with Canelo and he has good insight into the situation. Discussed some social concerns as well and brought these up with case management today. S: some cramping in his foot. walked with PT. using pain meds--these help his leg pain. O: alert, nad nonpalpable R pedal pulses. delayed cap refill. nonhealing great toe amputation and dorsal skin graft sites. cellulitis and odor improved. 06/13/18 14:39 Objective: Vital Signs Temp Pulse Resp BP Pulse Ox 36.7 C 59 L 16 112/70 98 06/13/18 07:50 06/13/18 07:50 06/13/18 07:50 06/13/18 07:50 06/13/18 07:50 Microbiology 06/10/18 10:35 Gram Stain - Final Foot - Swab Laboratory Results 06/12/18 05:30 06/12/18 05:30 06/12/18 06/13/18 06/14/18 05:59 05:59 05:59 Intake Total 1175 650 Output Total 1026 1200 400 Balance 149 -550 -400 PT 20.8 SEC (12.0-15.0) H 06/09/18 07:45 INR 1.78 (0.83-1.16) H 06/09/18 07:45 ICD10 Worksheet Patient Problems: Problems Problem Status Onset Cellulitis of foot Acute History of femoropopliteal bypass Acute Arterial occlusion, lower extremity Acute DVT (deep venous thrombosis) Acute Elevated INR Acute Pulmonary emboli Acute
[2018-06-13] MEDS: HEPARIN/DEXTROSE 500 ML IV SCH (15:59)
--- NOTE | 2018-06-13 18:08 | PCMIDPN ---
Assessment/Plan: RLE cellulitis/ischemia s/p fem tib bypass now clotted, unsuccessful TPA lysis on heparin gtt. Cx with MRSA, GAS, and GNR. Minimal signs of of infection remains. --continue zosyn/vancomycin for now --Cr normal yesterday, recheck Vanco T and Cr tomorrow --discussed that amputation would cure infection Meds Vancomycin 1.5gm IV q12 #5 zosyn 3.375gm IV q6h #5 Microbiology 06/10/18 10:35 Foot - Swab Wound Culture - Preliminary Streptococcus Pyogenes Grp A MRSA, Vancomycin KAYLIN = 1 Gram Negative Ulysses 06/08/18 15:45 Blood Cx (2) NGTD Subjective: patient in various stages of acceptance about R BKA concerned about being able to practice Mandelin +loose stools but attributes to laxative Objective: Vital Signs Temp Pulse Resp BP Pulse Ox 37.0 C 82 16 145/81 H 94 06/13/18 15:23 06/13/18 15:23 06/13/18 15:23 06/13/18 15:23 06/13/18 15:23 Microbiology 06/10/18 10:35 Gram Stain - Final Foot - Swab Laboratory Results 06/12/18 05:30 06/12/18 05:30 06/12/18 06/13/18 06/14/18 05:59 05:59 05:59 Intake Total 1175 650 Output Total 1026 1200 400 Balance 149 -550 -400 ESR 40 MM/HR (0-20) H 06/09/18 06:18 C-Reactive Protein 35.1 mg/L (<10.0) H 06/09/18 06:18 - Physical Exam General Appearance: alert EENT: pale conjunctiva, No scleral icterus Respiratory: No accessory muscle use, No crackles Neck: supple Cardiac/Chest: regular rate, rhythm, No systolic murmur Extremities: other (Cool RLE, bluish color medial aspect of foot: large incision medial R leg, healed), No swelling Abdomen: normal bowel sounds, non-tender, soft Skin: No rash Neuro/Psych: alert, normal mood/affect ICD10 Worksheet Patient Problems: Problems Problem Status Onset Cellulitis of foot Acute History of femoropopliteal bypass Acute Arterial occlusion, lower extremity Acute DVT (deep venous thrombosis) Acute Elevated INR Acute Pulmonary emboli Acute
[2018-06-13] MEDS: LATANOPROST 0.005% 2.5 ML OPHT DROPS RTEYE SCH (21:10)
[2018-06-14] MEDS: ZOLPIDEM TARTRATE 5 MG TAB PO PRN (00:19)
[2018-06-14] MEDS: VANCOMYCIN 1.5 GM in NS 250 ML IV SCH ×2 (00:19→13:10)
[2018-06-14] MEDS: PIPERACILLIN/TAZO 3.375 GM/DEX 50 ML IV SCH ×4 (02:16→20:00)
[2018-06-14] MEDS: HEPARIN/DEXTROSE 500 ML IV SCH ×2 (04:25→16:28)
[2018-06-14 05:04] LABS: PLATELET COUNT 248 10^3/uL (150-400)
[2018-06-14] MEDS: PANTOPRAZOLE SODIUM 40 MG TAB PO SCH (09:06)
[2018-06-14] MEDS: OMEGA-3 FATTY ACIDS 1,000 MG CAP PO SCH (09:06)
[2018-06-14] MEDS: GABAPENTIN 400 MG CAP PO SCH ×3 (09:11→21:48)
[2018-06-14] MEDS: GLUCOSAMINE SULF 500 MG CAP PO SCH (09:11)
[2018-06-14] MEDS: FERROUS SULFATE 325 MG TAB PO SCH (09:11)
[2018-06-14] MEDS: ACETAMINOPHEN 500 MG TAB PO SCH ×3 (09:12→21:48)
[2018-06-14] MEDS: SENNOSIDES/DOCUSATE SODIUM TAB PO SCH ×2 (09:19→20:00)
[2018-06-14] MEDS: POLYETHYLENE GLYCOL 3350 17 GM PKT PO SCH (09:19)
[2018-06-14] MEDS: oxyCODONE IR 5 MG TAB PO PRN ×3 (09:45→19:55)
--- NOTE | 2018-06-14 14:49 | HOSPPROG ---
Hospitalist Progress Note Assessment/Plan: * PVD with occlusion fem/tib bypass graft -s/p catheter directed tpa - now IV heparin gtt -repeat imaging without resolution - may need BKA * Protein C deficiency with severe hypercoagulable state -subtherapeutic INR on presentation -now IV heparin gtt * Groin hematoma - clinically improved -US negative for pseudoaneurysm -watch H/H * Cellulitis with chronic non-healing foot wounds -IV Vanco + Zosyn (polymicrobial including MRSA) Subjective: leg feels much better today, less pain, he's hopeful it will be saved Objective: Vital Signs Temp Pulse Resp BP Pulse Ox 37.1 C 69 14 127/66 H 97 06/14/18 08:00 06/14/18 08:00 06/14/18 08:00 06/14/18 08:00 06/14/18 08:00 Microbiology 06/10/18 10:35 Gram Stain - Final Foot - Swab Laboratory Results 06/14/18 04:50 06/14/18 04:50 06/13/18 06/14/18 06/15/18 05:59 05:59 05:59 Intake Total 650 400 Output Total 1200 1575 1000 Balance -550 -1175 -1000 PT 20.8 SEC (12.0-15.0) H 06/09/18 07:45 INR 1.78 (0.83-1.16) H 06/09/18 07:45 Laboratory Tests 06/13/18 06/14/18 04:45 04:50 Heparin Anti-Xa, Unfract 0.64 0.43 IV heparin drip - Physical Exam Constitutional: no apparent distress, appears nourished, not in pain Cardiovascular: regular rate and rhythym, no murmur, rub, or gallop Respiratory: no respiratory distress, no rales or rhonchi, clear to auscultation Gastrointestinal: normoactive bowel sounds, soft, non-tender abdomen, no palpable masses Skin: no rashes or abrasions, no fluctuance, no induration Neurologic: AAOx3, sensation intact bilaterally Psychiatric: interacting appropriately, not anxious, not encephalopathic, thought process linear ICD10 Worksheet Patient Problems: Problems Problem Status Onset Cellulitis of foot Acute History of femoropopliteal bypass Acute Arterial occlusion, lower extremity Acute DVT (deep venous thrombosis) Acute Elevated INR Acute Pulmonary emboli Acute
[2018-06-14] MEDS: LATANOPROST 0.005% 2.5 ML OPHT DROPS RTEYE SCH (20:00)
[2018-06-15] MEDS: VANCOMYCIN 1.5 GM in NS 250 ML IV SCH ×2 (01:50→12:00)
[2018-06-15] MEDS: PIPERACILLIN/TAZO 3.375 GM/DEX 50 ML IV SCH ×2 (04:29→09:43)
[2018-06-15] MEDS: oxyCODONE IR 5 MG TAB PO PRN ×4 (05:25→21:31)
[2018-06-15] MEDS: HEPARIN/DEXTROSE 500 ML IV SCH ×2 (05:27→16:15)
--- NOTE | 2018-06-15 09:24 | PCMIDPN ---
Assessment/Plan: 1. Nonhealing wounds right foot with surrounding cellulitis in patient with severe PAD: Foot still mottled and cool c/w left. Cellulitis improved, but wounds will not heal without blood flow. Still feel that pt will likely need BKA. Continue antibiotics until definitive plans made. Contact isolation for MRSA. Have placed call to Dr. East to discuss. Change Zosyn to Ertapenem given micro findings. Subjective: In a bad mood. Grouchy about being woken up. Objective: Vanco 1.5 g q 12 day 7 Zosyn 3. 375 q 6 day 7 Vital Signs Temp Pulse Resp BP Pulse Ox 36.4 C 68 16 134/75 H 93 06/15/18 07:48 06/15/18 07:48 06/15/18 07:48 06/15/18 07:48 06/15/18 07:48 Microbiology 06/10/18 10:35 Gram Stain - Final Foot - Swab Wound Culture - Final Streptococcus Pyogenes Grp A MRSA Enterobacter Cloacae Complex Laboratory Results 06/15/18 05:50 06/14/18 04:50 06/14/18 06/15/18 06/16/18 05:59 05:59 05:59 Intake Total 400 Output Total 1575 1225 Balance -1175 -1225 ESR 40 MM/HR (0-20) H 06/09/18 06:18 C-Reactive Protein 35.1 mg/L (<10.0) H 06/09/18 06:18 foot with MRSA, GAS and E.cloacae - Physical Exam General Appearance: no apparent distress EENT: pharynx normal Extremities: other (right foot mottled and cool. wounds look the same--no cellulitis, but malodor from great toe amp site) Skin: No rash ICD10 Worksheet Patient Problems: Problems Problem Status Onset Cellulitis of foot Acute History of femoropopliteal bypass Acute Arterial occlusion, lower extremity Acute DVT (deep venous thrombosis) Acute Elevated INR Acute Pulmonary emboli Acute
[2018-06-15] MEDS: PANTOPRAZOLE SODIUM 40 MG TAB PO SCH (09:28)
[2018-06-15] MEDS: OMEGA-3 FATTY ACIDS 1,000 MG CAP PO SCH (09:28)
[2018-06-15] MEDS: GLUCOSAMINE SULF 500 MG CAP PO SCH (09:29)
[2018-06-15] MEDS: SENNOSIDES/DOCUSATE SODIUM TAB PO SCH ×2 (09:29→19:28)
[2018-06-15] MEDS: GABAPENTIN 400 MG CAP PO SCH ×3 (09:29→21:30)
[2018-06-15] MEDS: FERROUS SULFATE 325 MG TAB PO SCH (09:29)
[2018-06-15] MEDS: POLYETHYLENE GLYCOL 3350 17 GM PKT PO SCH (09:29)
[2018-06-15] MEDS: ACETAMINOPHEN 500 MG TAB PO SCH ×3 (09:29→21:49)
[2018-06-15] MEDS: ERTAPENEM 1 GM in NS 100 ML IV SCH (09:39)
--- NOTE | 2018-06-15 11:09 | ASMTCMCOM ---
CM Note CM Note Notes: Pt seen by ID, may need BKA. Updated notes sent to BM. CM will continue to follow. DC Plan: Megan Freire Date Signed: 06/15/2018 11:08 AM Electronically Signed By:Elizabeth Davis RN
--- NOTE | 2018-06-15 17:23 | HOSPPROG ---
Hospitalist Progress Note Assessment/Plan: * PVD with occlusion fem/tib bypass graft -s/p catheter directed tpa - now IV heparin gtt -repeat imaging without resolution - may need BKA * Protein C deficiency with severe hypercoagulable state -subtherapeutic INR on presentation -now IV heparin gtt * Groin hematoma - clinically improved -US negative for pseudoaneurysm -H/H stable * Cellulitis with chronic non-healing foot wounds -IV Vanco + Invanz (polymicrobial including MRSA) Subjective: no complaints Objective: Vital Signs Temp Pulse Resp BP Pulse Ox 37.0 C 72 16 138/74 H 96 06/15/18 15:31 06/15/18 15:31 06/15/18 15:31 06/15/18 15:31 06/15/18 15:31 Microbiology 06/10/18 10:35 Gram Stain - Final Foot - Swab Wound Culture - Final Streptococcus Pyogenes Grp A MRSA Enterobacter Cloacae Complex Laboratory Results 06/15/18 05:50 06/14/18 04:50 06/14/18 06/15/18 06/16/18 05:59 05:59 05:59 Intake Total 400 3136 Output Total 1575 1225 1200 Balance -1175 -1225 1936 PT 20.8 SEC (12.0-15.0) H 06/09/18 07:45 INR 1.78 (0.83-1.16) H 06/09/18 07:45 d/w Dr. De La Fuente regarding antibiotic plan - Physical Exam Constitutional: no apparent distress, appears nourished, not in pain Cardiovascular: regular rate and rhythym, no murmur, rub, or gallop Respiratory: no respiratory distress, no rales or rhonchi, clear to auscultation Gastrointestinal: normoactive bowel sounds, soft, non-tender abdomen, no palpable masses Skin: no rashes or abrasions, no fluctuance, no induration Neurologic: AAOx3, sensation intact bilaterally Psychiatric: interacting appropriately, not anxious, not encephalopathic, thought process linear ICD10 Worksheet Patient Problems: Problems Problem Status Onset Cellulitis of foot Acute History of femoropopliteal bypass Acute Arterial occlusion, lower extremity Acute DVT (deep venous thrombosis) Acute Elevated INR Acute Pulmonary emboli Acute
--- NOTE | 2018-06-15 17:28 | SOAPPROG ---
SOAP Progress Note Assessment/Plan: Assessment: 62 y/o M admitted for occlusion of R fem-tib bypass graft S/p thrombolysis Repeat angiography reveals a stricture at the proximal saphenous vein graft and no runoff S: No complaints. Pain is well controlled. O: Alert Afebrile RRR No increased WOB RLE: absent pedal pulses, wounds well dressed Plan: BKA tomorrow. All options and risks discussed and pt would like to proceed. 06/15/18 17:28 Objective: Vital Signs Temp Pulse Resp BP Pulse Ox 37.0 C 72 16 138/74 H 96 06/15/18 15:31 06/15/18 15:31 06/15/18 15:31 06/15/18 15:31 06/15/18 15:31 Microbiology 06/10/18 10:35 Gram Stain - Final Foot - Swab Wound Culture - Final Streptococcus Pyogenes Grp A MRSA Enterobacter Cloacae Complex Laboratory Results 06/15/18 05:50 06/14/18 04:50 06/14/18 06/15/18 06/16/18 05:59 05:59 05:59 Intake Total 400 3136 Output Total 1575 1225 1200 Balance -1175 -1225 1936 PT 20.8 SEC (12.0-15.0) H 06/09/18 07:45 INR 1.78 (0.83-1.16) H 06/09/18 07:45 ICD10 Worksheet Patient Problems: Problems Problem Status Onset Cellulitis of foot Acute History of femoropopliteal bypass Acute Arterial occlusion, lower extremity Acute DVT (deep venous thrombosis) Acute Elevated INR Acute Pulmonary emboli Acute
[2018-06-15] MEDS: LATANOPROST 0.005% 2.5 ML OPHT DROPS RTEYE SCH (21:34)
[2018-06-16] MEDS: VANCOMYCIN 1.5 GM in NS 250 ML IV SCH ×2 (00:29→13:02)
[2018-06-16] MEDS: HEPARIN/DEXTROSE 500 ML IV SCH (06:15)
[2018-06-16] MEDS: PANTOPRAZOLE SODIUM 40 MG TAB PO SCH (08:00)
[2018-06-16] MEDS: SENNOSIDES/DOCUSATE SODIUM TAB PO SCH ×2 (08:00→21:57)
[2018-06-16] MEDS: ERTAPENEM 1 GM in NS 100 ML IV SCH (08:00)
[2018-06-16] MEDS: OMEGA-3 FATTY ACIDS 1,000 MG CAP PO SCH (08:01)
[2018-06-16] MEDS: GABAPENTIN 400 MG CAP PO SCH ×3 (08:01→21:46)
[2018-06-16] MEDS: FERROUS SULFATE 325 MG TAB PO SCH (08:02)
[2018-06-16] MEDS: GLUCOSAMINE SULF 500 MG CAP PO SCH (08:02)
[2018-06-16] MEDS: oxyCODONE IR 5 MG TAB PO PRN ×2 (08:59→13:01)
[2018-06-16] MEDS: ACETAMINOPHEN 500 MG TAB PO SCH ×3 (09:00→21:46)
--- NOTE | 2018-06-16 09:54 | PCMIDPN ---
Assessment/Plan: 1. Nonhealing wounds right foot with surrounding cellulitis in patient with severe PAD: Patient is going for a BKA later this afternoon. I have asked pharmacy to give him 1 more dose of vancomycin and ertapenem in the morning, then discontinue, as the infection on his right foot will be removed definitively via BKA. 06/16/18 09:52 Subjective: Going for a BKA later this afternoon. Has come to terms with this. Objective: Vancomycin 1.5 g IV q.12 hours day 8 Ertapenem 1 g IV daily day 2 (antibiotics day 8) Afebrile Vital Signs Temp Pulse Resp BP Pulse Ox 37.3 C 61 16 136/76 H 94 06/16/18 07:35 06/16/18 07:35 06/16/18 07:35 06/16/18 07:35 06/16/18 07:35 Microbiology 06/10/18 10:35 Gram Stain - Final Foot - Swab Wound Culture - Final Streptococcus Pyogenes Grp A MRSA Enterobacter Cloacae Complex Laboratory Results 06/15/18 05:50 06/14/18 04:50 06/15/18 06/16/18 06/17/18 05:59 05:59 05:59 Intake Total 3136 Output Total 1225 2050 350 Balance -1225 1086 -350 ESR 40 MM/HR (0-20) H 06/09/18 06:18 C-Reactive Protein 35.1 mg/L (<10.0) H 06/09/18 06:18 Foot culture with MRSA, Enterobacter cloacae, and group a strep Blood cultures have been negative - Physical Exam General Appearance: alert, no apparent distress EENT: pharynx normal, No thrush Respiratory: lungs clear Male Genitalia: other (Patient has a huge hematoma in his left inguinal area that spreads across his left flank and left thigh that is resolving.) Skin: other (I did not unwrap his right foot today.), No rash ICD10 Worksheet Patient Problems: Problems Problem Status Onset Cellulitis of foot Acute History of femoropopliteal bypass Acute Arterial occlusion, lower extremity Acute DVT (deep venous thrombosis) Acute Elevated INR Acute Pulmonary emboli Acute
[2018-06-16] MEDS: POLYETHYLENE GLYCOL 3350 17 GM PKT PO SCH (10:17)
--- NOTE | 2018-06-16 11:21 | ASMTCMCOM ---
CM Note CM Note Notes: Pt going for R BKA today. Will need rehab, unclear if it will be Inpt acute or at SNF. Pt lives at [facility], [facility] w/f for needs. DC Plan: TBD Date Signed: 06/16/2018 11:20 AM Electronically Signed By:Elizabeth Davis RN
[2018-06-16] MEDS ORDERED: BUPIVACAINE 0.5% 30 ML SDV ONE (15:15)
[2018-06-16] MEDS ORDERED: LR 1,000 ML IV ONE (15:40)
[2018-06-16] MEDS ORDERED: MIDAZOLAM 2 MG/2 ML VIAL IVP ONE (15:48)
[2018-06-16] MEDS ORDERED: MIDAZOLAM 2 MG/2 ML VIAL ONE (15:53)
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
[2018-06-16] MEDS ORDERED: fentaNYL 100 MCG/2 ML INJ ONE ×2 (16:03→18:08)
[2018-06-16] MEDS ORDERED: PROPOFOL 200 MG/20 ML VIAL ONE (16:04)
[2018-06-16] MEDS ORDERED: LIDOCAINE 2% 2 ML INJ ONE ×3 (16:05)
[2018-06-16] MEDS ORDERED: DEXAMETHASONE 4 MG/ML VIAL ONE (16:06)
[2018-06-16] MEDS ORDERED: KETOROLAC 30 MG/1 ML SDV ONE (16:06)
[2018-06-16] MEDS ORDERED: ONDANSETRON 4 MG/2 ML VIAL ONE (16:06)
--- NOTE | 2018-06-16 16:33 | HOSPPROG ---
Hospitalist Progress Note Assessment/Plan: 62 yo M with hx of PVD presenting with graft occlusion and cellulitis * PVD with occlusion fem/tib bypass graft -s/p catheter directed tpa and heparin gtt -repeat imaging without resolution - BKA scheduled for today * Protein C deficiency with severe hypercoagulable state -subtherapeutic INR on presentation -now IV heparin gtt, held pre oparatively * Groin hematoma - clinically improved -US negative for pseudoaneurysm -H/H stable * Cellulitis with chronic non-healing foot wounds -IV Vanco + Invanz (polymicrobial including MRSA) -appreciate ID input * peripheral neuropathy * patient new to my care. Old records reviewed and summarized as above. Subjective: no significant overnight events, patient feeling well, feels ready for surgery Objective: Vital Signs Temp Pulse Resp BP Pulse Ox 36.1 C 62 18 149/62 H 98 06/16/18 15:43 06/16/18 15:59 06/16/18 15:59 06/16/18 15:59 06/16/18 15:59 Laboratory Results 06/15/18 05:50 06/14/18 04:50 06/15/18 06/16/18 06/17/18 05:59 05:59 05:59 Intake Total 3136 Output Total 1225 2050 350 Balance -1225 1086 -350 PT 20.8 SEC (12.0-15.0) H 06/09/18 07:45 INR 1.78 (0.83-1.16) H 06/09/18 07:45 awake alert anicteric op clear rrr no mrg cta b soft nt nd no cce, rle mottled, wounds cdi oriented appropriate ICD10 Worksheet Patient Problems: Problems Problem Status Onset DVT (deep venous thrombosis) Acute Pulmonary emboli Acute Elevated INR Acute Arterial occlusion, lower extremity Acute Cellulitis of foot Acute History of femoropopliteal bypass Acute
[2018-06-16] MEDS ORDERED: HYDROmorphONE/DILAUDID 2 MG/ML INJ ONE (17:03)
--- NOTE | 2018-06-16 18:01 | POSTOPPROG ---
Post Op Note Date of Operation: 06/16/18 Surgeon: Bandar East Cart[employer] Assembling Machine Adjuster: Yossi Anesthesiologist: Jordy Anesthesia: GET(General Endotracheal) Pre-op Diagnosis: Occluded right fem-tib bypass graft Post-op Diagnosis: same Indication: same Procedure: Right BKA Findings: significant venous blood flow Inf/Abcess present in the surg proc area at time of surgery?: No Depth: Deep Incisional (Fascial) EBL: 100-500 Specimen(s): Right BKA- permanent
[2018-06-16] MEDS ORDERED: NALOXONE HCL 0.4 MG/ML INJ IVP PRN ×2 (18:02→18:03)
[2018-06-16] MEDS ORDERED: ONDANSETRON 4 MG/2 ML VIAL IVP PRN (18:03)
[2018-06-16] MEDS ORDERED: HYDROmorphONE/DILAUDID 1 MG/ML INJ IVP PRN (18:03)
[2018-06-16] MEDS ORDERED: ALBUTEROL 3 ML DEYVIAL IH PRN (18:03)
[2018-06-16] MEDS: NS 1,000 ML IV SCH (21:44)
[2018-06-16] MEDS: HYDROmorphONE/DILAUDID 6 MG/30 ML PCA IV PRN (21:45)
[2018-06-16] MEDS: LATANOPROST 0.005% 2.5 ML OPHT DROPS RTEYE SCH (21:58)
[2018-06-17] MEDS: VANCOMYCIN 1.5 GM in NS 250 ML IV SCH (01:09)
[2018-06-17] MEDS: ACETAMINOPHEN 500 MG TAB PO SCH ×3 (09:04→21:24)
[2018-06-17] MEDS: OMEGA-3 FATTY ACIDS 1,000 MG CAP PO SCH (09:05)
[2018-06-17] MEDS: PANTOPRAZOLE SODIUM 40 MG TAB PO SCH (09:05)
[2018-06-17] MEDS: GLUCOSAMINE SULF 500 MG CAP PO SCH (09:05)
[2018-06-17] MEDS: FERROUS SULFATE 325 MG TAB PO SCH (09:05)
[2018-06-17] MEDS: ERTAPENEM 1 GM in NS 100 ML IV SCH (09:06)
[2018-06-17] MEDS: GABAPENTIN 400 MG CAP PO SCH ×3 (09:06→21:24)
[2018-06-17] MEDS: POLYETHYLENE GLYCOL 3350 17 GM PKT PO SCH (09:07)
[2018-06-17] MEDS: SENNOSIDES/DOCUSATE SODIUM TAB PO SCH ×2 (09:07→22:54)
--- NOTE | 2018-06-17 11:01 | SOAPPROG ---
SOAP Progress Note Assessment/Plan: Assessment: 63yo M POD#1 s/p R BKA - VSS, HDS - c/o spasms in R stump, adding muscle relaxant today - keep stump extended and on pillow, will take down dressing tomorrow - will fit with protector Tuesday Plan: 06/17/18 11:00 Subjective: leg spasms Objective: Vital Signs Temp Pulse Resp BP Pulse Ox 36.9 C 85 16 134/75 H 95 06/17/18 09:46 06/17/18 09:46 06/17/18 09:46 06/17/18 09:46 06/17/18 09:46 Laboratory Results 06/15/18 05:50 06/14/18 04:50 06/16/18 06/17/18 06/18/18 05:59 05:59 05:59 Intake Total 3136 1825 Output Total 0 2350 200 Balance 1086 -525 -200 PT 20.8 SEC (12.0-15.0) H 06/09/18 07:45 INR 1.78 (0.83-1.16) H 06/09/18 07:45 ICD10 Worksheet Patient Problems: Problems Problem Status Onset Cellulitis of foot Acute History of femoropopliteal bypass Acute Arterial occlusion, lower extremity Acute DVT (deep venous thrombosis) Acute Elevated INR Acute Pulmonary emboli Acute
[2018-06-17] MEDS: CYCLOBENZAPRINE 10 MG TAB PO SCH ×3 (11:18→21:24)
[2018-06-17] MEDS: HYDROmorphONE/DILAUDID 6 MG/30 ML PCA IV PRN ×2 (13:39→13:50)
--- NOTE | 2018-06-17 15:34 | HOSPPROG ---
Hospitalist Progress Note Assessment/Plan: 62 yo M with hx of PVD presenting with graft occlusion and cellulitis * PVD with occlusion fem/tib bypass graft -s/p catheter directed tpa and heparin gtt -repeat imaging without resolution - now s/p BKA -patient notes pain is well controlled * Protein C deficiency with severe hypercoagulable state -subtherapeutic INR on presentation -has been on heparin gtt pre operatively and will resume when ok with general surgery * Groin hematoma - clinically improved -US negative for pseudoaneurysm -H/H stable * Cellulitis with chronic non-healing foot wounds -IV Vanco + Invanz (polymicrobial including MRSA) -appreciate ID input * peripheral neuropathy * IP status, will likely need to transfer to rehab soon Subjective: no signficant overnight events, patient doing well currently, states he has not pain at all Objective: Vital Signs Temp Pulse Resp BP Pulse Ox 36.7 C 70 16 115/64 96 06/17/18 11:58 06/17/18 11:58 06/17/18 11:58 06/17/18 11:58 06/17/18 11:58 Laboratory Results 06/15/18 05:50 06/14/18 04:50 06/16/18 06/17/18 06/18/18 05:59 05:59 05:59 Intake Total 3136 1825 Output Total 2050 2350 200 Balance 1086 -525 -200 PT 20.8 SEC (12.0-15.0) H 06/09/18 07:45 INR 1.78 (0.83-1.16) H 06/09/18 07:45 awake alert anicteric op clear rrr no mrg cta b soft nt nd no cce, rle mottled, wounds cdi oriented appropriate ICD10 Worksheet Patient Problems: Problems Problem Status Onset Cellulitis of foot Acute History of femoropopliteal bypass Acute Arterial occlusion, lower extremity Acute DVT (deep venous thrombosis) Acute Elevated INR Acute Pulmonary emboli Acute
[2018-06-17] MEDS: NS 1,000 ML IV SCH (21:24)
[2018-06-17] MEDS: oxyCODONE IR 5 MG TAB PO PRN (21:24)
[2018-06-17] MEDS: ENOXAPARIN 40 MG/0.4 ML SYR SC SCH (21:33)
[2018-06-17] MEDS: LATANOPROST 0.005% 2.5 ML OPHT DROPS RTEYE SCH (21:53)
[2018-06-18] MEDS: oxyCODONE IR 5 MG TAB PO PRN ×3 (06:22→11:22)
[2018-06-18] MEDS: HYDROmorphONE/DILAUDID 6 MG/30 ML PCA IV PRN (07:54)
[2018-06-18] MEDS: CYCLOBENZAPRINE 10 MG TAB PO SCH ×3 (07:57→22:32)
[2018-06-18] MEDS: GABAPENTIN 400 MG CAP PO SCH (07:58)
[2018-06-18] MEDS: FERROUS SULFATE 325 MG TAB PO SCH (07:59)
[2018-06-18] MEDS: GLUCOSAMINE SULF 500 MG CAP PO SCH (07:59)
[2018-06-18] MEDS: OMEGA-3 FATTY ACIDS 1,000 MG CAP PO SCH (07:59)
[2018-06-18] MEDS: PANTOPRAZOLE SODIUM 40 MG TAB PO SCH (07:59)
[2018-06-18] MEDS: ENOXAPARIN 40 MG/0.4 ML SYR SC SCH (07:59)
[2018-06-18] MEDS: POLYETHYLENE GLYCOL 3350 17 GM PKT PO SCH (08:01)
[2018-06-18] MEDS: SENNOSIDES/DOCUSATE SODIUM TAB PO SCH ×2 (08:01→20:46)
[2018-06-18] MEDS: ACETAMINOPHEN 500 MG TAB PO SCH ×3 (08:13→22:31)
[2018-06-18] MEDS ORDERED: oxyCODONE IR 5 MG TAB PO PRN ×2 (12:24→15:12)
[2018-06-18] MEDS: GABAPENTIN 300 MG CAP PO SCH ×3 (12:38→22:32)
[2018-06-18] MEDS ORDERED: HEPARIN 10,000 UNIT/10 ML MDV (1,000 UNIT/ML) IVP PRN (14:12)
--- NOTE | 2018-06-18 14:13 | HOSPPROG ---
Hospitalist Progress Note Assessment/Plan: 62 yo M with hx of PVD presenting with graft occlusion and cellulitis * PVD with occlusion fem/tib bypass graft -s/p catheter directed tpa and heparin gtt without resolution and now s/p BKA -patient notes pain is more severe today, now on SENIOR QUALITATIVE RESEARCHER and added flexeril and valium for spasm -describing phantom pain and will increase gabapentin as well * Protein C deficiency with severe hypercoagulable state -subtherapeutic INR on presentation -had been on heparin gtt pre operatively and will resume today * Groin hematoma - clinically improved -US negative for pseudoaneurysm -H/H stable * Cellulitis with chronic non-healing foot wounds -IV Vanco + Invanz (polymicrobial including MRSA) -appreciate ID input * peripheral neuropathy - continue gabapentin, increased dose as above * IP status, will likely need to transfer to rehab soon, plan to fit stump with stone engraver likely tomorrow Subjective: no significant overnight events, patient notes he is in more pain today, he is a bit agitated Objective: Vital Signs Temp Pulse Resp BP Pulse Ox 37.2 C 79 20 135/70 H 91 L 06/18/18 11:09 06/18/18 11:09 06/18/18 11:09 06/18/18 11:09 06/18/18 11:09 Laboratory Results 06/15/18 05:50 06/14/18 04:50 06/17/18 06/18/18 06/19/18 05:59 05:59 05:59 Intake Total 1825 250 Output Total 2350 800 450 Balance -525 -550 -450 PT 20.8 SEC (12.0-15.0) H 06/09/18 07:45 INR 1.78 (0.83-1.16) H 06/09/18 07:45 awake alert anicteric op clear rrr no mrg cta b soft nt nd no cce, rle sp BKA and dressing in place oriented appropriate ICD10 Worksheet Patient Problems: Problems Problem Status Onset Cellulitis of foot Acute History of femoropopliteal bypass Acute Arterial occlusion, lower extremity Acute DVT (deep venous thrombosis) Acute Elevated INR Acute Pulmonary emboli Acute
--- NOTE | 2018-06-18 15:12 | SOAPPROG ---
SOAP Progress Note Assessment/Plan: Assessment: 63yo M POD#2 s/p R BKA - VSS, HDS - more pain today, increasing his oxycodone dose. Keep SOLDERER BARREL RIBS - start heparin for Hx of protein C def and clear Hx of clots - dressing taken down, incision is clean and well perfused. - stump protector this week. Plan: 06/17/18 11:00 06/18/18 15:11 Subjective: grumpy Objective: Vital Signs Temp Pulse Resp BP Pulse Ox 37.2 C 79 20 135/70 H 91 L 06/18/18 11:09 06/18/18 11:09 06/18/18 11:09 06/18/18 11:09 06/18/18 11:09 Laboratory Results 06/14/18 04:50 06/17/18 06/18/18 06/19/18 05:59 05:59 05:59 Intake Total 1825 250 Output Total 2350 800 450 Balance -525 -550 -450 PT 20.8 SEC (12.0-15.0) H 06/09/18 07:45 INR 1.78 (0.83-1.16) H 06/09/18 07:45 ICD10 Worksheet Patient Problems: Problems Problem Status Onset Cellulitis of foot Acute History of femoropopliteal bypass Acute Arterial occlusion, lower extremity Acute DVT (deep venous thrombosis) Acute Elevated INR Acute Pulmonary emboli Acute
[2018-06-18 15:26] LABS: INR 1.02 (0.83-1.16); PROTIME(PATIENT) 13.6 SEC (12.0-15.0)
[2018-06-18] MEDS: NS 1,000 ML IV SCH (17:51)
[2018-06-18 18:40] LABS: PLATELET COUNT 334 10^3/uL (150-400)
[2018-06-18] MEDS: HEPARIN/DEXTROSE 500 ML IV SCH (18:43)
[2018-06-18] MEDS: LATANOPROST 0.005% 2.5 ML OPHT DROPS RTEYE SCH (20:47)
[2018-06-19] MEDS: HYDROmorphONE/DILAUDID 6 MG/30 ML PCA IV PRN ×2 (04:23→20:00)
[2018-06-19 06:42] LABS: PLATELET COUNT 310 10^3/uL (150-400)
[2018-06-19] MEDS: FERROUS SULFATE 325 MG TAB PO SCH (08:20)
[2018-06-19] MEDS: CYCLOBENZAPRINE 10 MG TAB PO SCH ×3 (08:21→21:12)
[2018-06-19] MEDS: PANTOPRAZOLE SODIUM 40 MG TAB PO SCH (08:21)
[2018-06-19] MEDS: SENNOSIDES/DOCUSATE SODIUM TAB PO SCH ×2 (08:21→21:12)
[2018-06-19] MEDS: HEPARIN/DEXTROSE 500 ML IV SCH ×2 (08:21→23:34)
[2018-06-19] MEDS: POLYETHYLENE GLYCOL 3350 17 GM PKT PO SCH (08:21)
[2018-06-19] MEDS: GLUCOSAMINE SULF 500 MG CAP PO SCH (08:21)
[2018-06-19] MEDS: OMEGA-3 FATTY ACIDS 1,000 MG CAP PO SCH (08:21)
[2018-06-19] MEDS: ACETAMINOPHEN 500 MG TAB PO SCH ×3 (08:21→21:13)
[2018-06-19] MEDS: GABAPENTIN 300 MG CAP PO SCH ×3 (08:22→21:12)
[2018-06-19] MEDS ORDERED: oxyCODONE IR 5 MG TAB PO PRN (10:02)
--- NOTE | 2018-06-19 10:05 | HOSPPROG ---
Hospitalist Progress Note Assessment/Plan: # PVD with occluded feb/tib bypass graft, now s/p R BKA # post-op pain - feels foggy with dialudid - will sched oxy 5mg Q6, add oxy 5mg Q4 prn as well - cont apap 1g tid, gagandeep 600 tid, valium prn and flexeril prn # anemia - trending down but stable # protein c defic, hypercoagulable - cont heparin gtt for now, need to change to PO anticoagulation soon # groin hematoma - stable; US neg for pseudoaneurysm # polymicrobial cellulitis - abx stoped after BKA # peripheral neuropathy - gagandeep Subjective: pain ongoing today; feels foggy with dilaudid; constipated Objective: Vital Signs Temp Pulse Resp BP Pulse Ox 36.5 C 73 18 128/73 H 99 06/19/18 08:00 06/19/18 08:00 06/19/18 08:00 06/19/18 08:00 06/19/18 08:00 Laboratory Results 06/19/18 06:30 06/19/18 06:30 06/18/18 06/19/18 06/20/18 05:59 05:59 05:59 Intake Total 250 650 Output Total 800 2600 500 Balance -550 -2600 150 PT 13.6 SEC (12.0-15.0) 06/18/18 15:00 INR 1.02 (0.83-1.16) 06/18/18 15:00 chart reviewed CTA reviewed op note reviewed - Physical Exam Constitutional: no apparent distress, appears nourished Cardiovascular: regular rate and rhythym, no murmur, rub, or gallop Respiratory: no respiratory distress, no rales or rhonchi, clear to auscultation Gastrointestinal: soft, non-tender abdomen, no palpable masses, No guarding, No rebound, No distension Musculoskeletal: other (R BKA; L groin ecchymosis) ICD10 Worksheet Patient Problems: Problems Problem Status Onset DVT (deep venous thrombosis) Acute Pulmonary emboli Acute Elevated INR Acute Arterial occlusion, lower extremity Acute Cellulitis of foot Acute History of femoropopliteal bypass Acute
--- NOTE | 2018-06-19 10:11 | SOAPPROG ---
MILAN Progress Note Assessment/Plan: Assessment: PATIENT IS STABLE, COMFORTABLE BUT NO OBVIOUS SUCCESS FROM THROMBOLYSIS SO FOR WHICH HAD DIET HAS MUCH REAL CHANCE OF SUCCESS HE DOES HAVE A FAINT DOPPLERABLE POSTERIOR TIBIAL PULSE BUT HIS TOES ARE LESS PINK RISKS AND OPTIONS FULLY DISCUSSED Plan: FOLLOW-UP ANGIOGRAM/WILL PROBABLY BE FACING A BK AMPUTATION 06/10/18 12:39 06/11/18 10:48 Some flow in his graft are reinstated but none in the distal portion and no significant runoff on angiography Foot is stable and not particularly painful at rest It seems minimal benefit achievable from bypass exploration and revision of the stenotic area in the face of no significant runoff He is probably facing a BK amputation in the near future 06/19/18 10:09 CO PAIN/ WOUND OK/ STUMP CLEAN AND DRY/ ANTICOAGULATION PER IM Objective: Vital Signs Temp Pulse Resp BP Pulse Ox 36.5 C 73 18 128/73 H 99 06/19/18 08:00 06/19/18 08:00 06/19/18 08:00 06/19/18 08:00 06/19/18 08:00 Laboratory Results 06/19/18 06:30 06/19/18 06:30 06/18/18 06/19/18 06/20/18 05:59 05:59 05:59 Intake Total 250 650 Output Total 800 2600 500 Balance -550 -2600 150 PT 13.6 SEC (12.0-15.0) 06/18/18 15:00 INR 1.02 (0.83-1.16) 06/18/18 15:00 ICD10 Worksheet Patient Problems: Problems Problem Status Onset Cellulitis of foot Acute History of femoropopliteal bypass Acute Arterial occlusion, lower extremity Acute DVT (deep venous thrombosis) Acute Elevated INR Acute Pulmonary emboli Acute
--- NOTE | 2018-06-19 11:27 | ASMTCMCOM ---
CM Note CM Note Notes: Updates sent to [facility]. Pt to return to [facility] once medically stable. Therapies are recommending SNF. CM to follow. Plan: [facility] Date Signed: 06/19/2018 11:26 AM Electronically Signed By:PIPPA Mayen
[2018-06-19] MEDS: oxyCODONE IR 5 MG TAB PO SCH ×3 (11:33→23:27)
[2018-06-19] MEDS: NS 1,000 ML IV SCH (11:56)
[2018-06-19] MEDS: LACTULOSE 20 GM/30 ML UDCUP PO PRN (17:17)
[2018-06-19] MEDS: LATANOPROST 0.005% 2.5 ML OPHT DROPS RTEYE SCH (20:09)
[2018-06-20] MEDS: GLUCOSAMINE SULF 500 MG CAP PO SCH (09:10)
[2018-06-20] MEDS: FERROUS SULFATE 325 MG TAB PO SCH (09:10)
[2018-06-20] MEDS: ACETAMINOPHEN 500 MG TAB PO SCH ×3 (09:10→21:23)
[2018-06-20] MEDS: CYCLOBENZAPRINE 10 MG TAB PO SCH ×3 (09:10→21:06)
[2018-06-20] MEDS: OMEGA-3 FATTY ACIDS 1,000 MG CAP PO SCH (09:10)
[2018-06-20] MEDS: POLYETHYLENE GLYCOL 3350 17 GM PKT PO SCH (09:10)
[2018-06-20] MEDS: PANTOPRAZOLE SODIUM 40 MG TAB PO SCH (09:10)
[2018-06-20] MEDS: GABAPENTIN 300 MG CAP PO SCH ×3 (09:10→21:06)
[2018-06-20] MEDS: SENNOSIDES/DOCUSATE SODIUM TAB PO SCH ×2 (09:10→21:06)
[2018-06-20] MEDS ORDERED: oxyCODONE IR 5 MG TAB PO PRN (10:01)
[2018-06-20] MEDS: oxyCODONE IR 5 MG TAB PO PRN ×3 (10:30→14:33)
[2018-06-20] MEDS: DIAZEPAM 5 MG TAB PO PRN ×2 (10:30→17:29)
[2018-06-20] MEDS ORDERED: oxyCODONE IR 5 MG TAB PO SCH (12:00)
[2018-06-20] MEDS: HEPARIN/DEXTROSE 500 ML IV SCH (14:42)
[2018-06-20] MEDS ORDERED: WARFARIN SODIUM 7.5 MG TAB PO ONE ×2 (14:45→16:00)
[2018-06-20] MEDS: oxyCODONE IR 5 MG TAB PO SCH ×2 (14:50→17:28)
[2018-06-20] MEDS ORDERED: WARFARIN SODIUM 5 MG TAB PO SCH (16:00)
[2018-06-20] MEDS ORDERED: NALOXONE HCL 0.4 MG/ML INJ IVP PRN (16:56)
[2018-06-20] MEDS ORDERED: HYDROmorphONE/DILAUDID 6 MG/30 ML PCA IV PRN (16:56)
[2018-06-20] MEDS: HYDROmorphONE/DILAUDID 6 MG/30 ML PCA IV PRN (17:29)
--- NOTE | 2018-06-20 17:36 | SOAPPROG ---
SOAP Progress Note Assessment/Plan: Assessment/Plan: 62 Y M s/p fem tib bypass now clotted, unsuccessful TPA lysis. Cellulitis, nonhealing foot wounds. s/p BKA. Seen and examined with Dr. East earlier this am and d/w'ed medicine and RN. Wean from CHEMOTHERAPIST. Should transition to all PO meds. Dressing change tomorrow. PT/OT. Placement. S: just woke up. had a dream that he still had his leg. c/o pain. O: alert, nad stump well dressed, no saturation (changed yesterday, and c/d/i). 06/20/18 17:34 Objective: Vital Signs Temp Pulse Resp BP Pulse Ox 36.9 C 79 22 H 115/79 98 06/20/18 16:00 06/20/18 16:00 06/20/18 16:00 06/20/18 16:00 06/20/18 16:00 Laboratory Results 06/20/18 05:55 06/19/18 06:30 06/19/18 06/20/18 06/21/18 05:59 05:59 05:59 Intake Total 650 1500 Output Total 2600 1400 850 Balance -2600 -750 650 PT 13.6 SEC (12.0-15.0) 06/18/18 15:00 INR 1.02 (0.83-1.16) 06/18/18 15:00 ICD10 Worksheet Patient Problems: Problems Problem Status Onset Cellulitis of foot Acute History of femoropopliteal bypass Acute Arterial occlusion, lower extremity Acute DVT (deep venous thrombosis) Acute Elevated INR Acute Pulmonary emboli Acute
[2018-06-20] MEDS: LATANOPROST 0.005% 2.5 ML OPHT DROPS RTEYE SCH (21:08)
[2018-06-20] MEDS: ENOXAPARIN 100 MG/ML SYR SC SCH (21:09)
[2018-06-21] MEDS: oxyCODONE IR 5 MG TAB PO SCH ×5 (00:37→19:05)
[2018-06-21 05:06] LABS: INR 1.05 (0.83-1.16); PROTIME(PATIENT) 13.9 SEC (12.0-15.0)
[2018-06-21] MEDS: ENOXAPARIN 100 MG/ML SYR SC SCH ×2 (10:14→21:15)
[2018-06-21] MEDS: CYCLOBENZAPRINE 10 MG TAB PO SCH ×3 (10:15→21:12)
[2018-06-21] MEDS: PANTOPRAZOLE SODIUM 40 MG TAB PO SCH (10:15)
[2018-06-21] MEDS: SENNOSIDES/DOCUSATE SODIUM TAB PO SCH ×2 (10:15→21:14)
[2018-06-21] MEDS: OMEGA-3 FATTY ACIDS 1,000 MG CAP PO SCH (10:15)
[2018-06-21] MEDS: FERROUS SULFATE 325 MG TAB PO SCH (10:15)
[2018-06-21] MEDS: ACETAMINOPHEN 500 MG TAB PO SCH ×3 (10:16→21:13)
[2018-06-21] MEDS: GLUCOSAMINE SULF 500 MG CAP PO SCH (10:17)
[2018-06-21] MEDS: GABAPENTIN 300 MG CAP PO SCH ×3 (10:17→21:12)
[2018-06-21] MEDS: oxyCODONE IR 5 MG TAB PO PRN (10:32)
[2018-06-21] MEDS: POLYETHYLENE GLYCOL 3350 17 GM PKT PO SCH ×2 (10:33→10:42)
--- NOTE | 2018-06-21 10:37 | SOAPPROG ---
SOAP Progress Note Assessment/Plan: Assessment/Plan: 62 Y M s/p fem tib bypass now clotted, unsuccessful TPA lysis. Cellulitis, nonhealing foot wounds. s/p BKA. Discussion with Canelo about pain management today. Goal is to get to all oral therapy. Pt now has 5-15 mg oxycodone Q6h, and 5-15 mg oxycodone Q4h for breakthrough. Will d/c the YOUTH DEVELOPMENT PROFESSIONAL but add pushes of IV dilaudid as needed. Will add ibuprofen. Also getting neurontin 600mg tid. Dressing changed--BKA stump healing well. PT/OT. Dispo: likely back to [facility] once pain under control. S: frustrated--wants less pain. O: alert, nad no wob rrr abd soft stump cdi, mild ecchymosis, no erythema or drainage. 06/21/18 10:35 Objective: Vital Signs Temp Pulse Resp BP Pulse Ox 36.8 C 77 16 119/68 91 L 06/21/18 07:58 06/21/18 07:58 06/21/18 07:58 06/21/18 07:58 06/21/18 07:58 Laboratory Results 06/21/18 04:37 06/21/18 04:37 06/20/18 06/21/18 06/22/18 05:59 05:59 05:59 Intake Total 650 2742 Output Total 1400 2750 Balance -750 -8 PT 13.9 SEC (12.0-15.0) 06/21/18 04:37 INR 1.05 (0.83-1.16) 06/21/18 04:37 ICD10 Worksheet Patient Problems: Problems Problem Status Onset Cellulitis of foot Acute History of femoropopliteal bypass Acute Arterial occlusion, lower extremity Acute DVT (deep venous thrombosis) Acute Elevated INR Acute Pulmonary emboli Acute
--- NOTE | 2018-06-21 10:45 | ASMTCMCOM ---
CM Note CM Note Notes: Spoke w/Stephanie at , pt had BKA and working with therapies. Stephanie faxed updated notes and notified that pt will need PT/OT when he returns to . DC Plan: [facility] Date Signed: 06/21/2018 10:44 AM Electronically Signed By:Elizabeth Davis RN
[2018-06-21] MEDS ORDERED: HYDROmorphONE/DILAUDID 1 MG/ML INJ IVP PRN (10:47)
--- NOTE | 2018-06-21 10:49 | SOAPPROG ---
SOAP Progress Note Assessment/Plan: Assessment/Plan: 62 Y M s/p fem tib bypass now clotted, unsuccessful TPA lysis. Cellulitis, nonhealing foot wounds. s/p BKA. Discussion with Canelo about pain management today. Goal is to get to all oral therapy. Pt now has 5-15 mg oxycodone Q6h, and 5-15 mg oxycodone Q4h for breakthrough. 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 Will add ibuprofen. Also getting neurontin 600mg tid. --realize pt on lovenox and starting back on coumadin for hypercoaguable state. Still would like to add ibuprofen for now--benefit outweighs risk of bleeding, INR still subtherapeutic. Dressing changed--BKA stump healing well. PT/OT. Dispo: likely back to [facility] once pain under control. S: frustrated--wants less pain. O: alert, nad no wob rrr abd soft stump cdi, mild ecchymosis, no erythema or drainage. 06/21/18 10:48 Objective: Vital Signs Temp Pulse Resp BP Pulse Ox 36.8 C 77 16 119/68 91 L 06/21/18 07:58 06/21/18 07:58 06/21/18 07:58 06/21/18 07:58 06/21/18 07:58 Laboratory Results 06/21/18 04:37 06/21/18 04:37 06/20/18 06/21/18 06/22/18 05:59 05:59 05:59 Intake Total 650 2742 Output Total 1400 2750 Balance -750 -8 PT 13.9 SEC (12.0-15.0) 06/21/18 04:37 INR 1.05 (0.83-1.16) 06/21/18 04:37 ICD10 Worksheet Patient Problems: Problems Problem Status Onset Cellulitis of foot Acute History of femoropopliteal bypass Acute Arterial occlusion, lower extremity Acute DVT (deep venous thrombosis) Acute Elevated INR Acute Pulmonary emboli Acute
[2018-06-21] MEDS: IBUPROFEN 200 MG TAB PO PRN (15:51)
[2018-06-21] MEDS ORDERED: WARFARIN SODIUM 7.5 MG TAB PO ONE (16:00)
--- NOTE | 2018-06-21 17:18 | HOSPPROG ---
Hospitalist Progress Note Assessment/Plan: # PVD with occluded feb/tib bypass graft, now s/p R BKA # post-op pain - has not needed dilaudid IV today - cont high dose oxy PO - cont apap 1g tid, gagandeep 600 tid, valium prn and flexeril prn # anemia - stable # protein c defic, hypercoagulable - cont lovenox bridge to warfarin # groin hematoma - stable; US neg for pseudoaneurysm # polymicrobial cellulitis - abx stoped after BKA # peripheral neuropathy - gagandeep # dispo - pending pain control; if stable on PO narcotics, can dc tomorrow to snf Subjective: pain better today; not using dilaudid IV Objective: Vital Signs Temp Pulse Resp BP Pulse Ox 36.9 C 80 16 109/67 99 06/21/18 16:00 06/21/18 16:00 06/21/18 16:00 06/21/18 16:00 06/21/18 16:00 Laboratory Results 06/21/18 04:37 06/21/18 04:37 06/20/18 06/21/18 06/22/18 05:59 05:59 05:59 Intake Total 650 2742 Output Total 1400 2750 Balance -750 -8 PT 13.9 SEC (12.0-15.0) 06/21/18 04:37 INR 1.05 (0.83-1.16) 06/21/18 04:37 - Physical Exam Constitutional: no apparent distress, appears nourished Cardiovascular: regular rate and rhythym, no murmur, rub, or gallop Respiratory: no respiratory distress, no rales or rhonchi, clear to auscultation Gastrointestinal: soft, non-tender abdomen, no palpable masses, No guarding, No rebound, No distension ICD10 Worksheet Patient Problems: Problems Problem Status Onset DVT (deep venous thrombosis) Acute Pulmonary emboli Acute Elevated INR Acute Arterial occlusion, lower extremity Acute Cellulitis of foot Acute History of femoropopliteal bypass Acute
[2018-06-21] MEDS: LATANOPROST 0.005% 2.5 ML OPHT DROPS RTEYE SCH (21:17)
[2018-06-22] MEDS: IBUPROFEN 200 MG TAB PO PRN ×2 (00:27→06:01)
[2018-06-22] MEDS: oxyCODONE IR 5 MG TAB PO SCH ×3 (00:28→12:22)
[2018-06-22 05:21] LABS: INR 1.24 (0.83-1.16); PROTIME(PATIENT) 15.8 SEC (12.0-15.0)
[2018-06-22] MEDS: SENNOSIDES/DOCUSATE SODIUM TAB PO SCH (09:39)
[2018-06-22] MEDS: PANTOPRAZOLE SODIUM 40 MG TAB PO SCH (09:39)
[2018-06-22] MEDS: CYCLOBENZAPRINE 10 MG TAB PO SCH (09:39)
[2018-06-22] MEDS: ENOXAPARIN 100 MG/ML SYR SC SCH (09:39)
[2018-06-22] MEDS: OMEGA-3 FATTY ACIDS 1,000 MG CAP PO SCH (09:40)
[2018-06-22] MEDS: GABAPENTIN 300 MG CAP PO SCH (09:40)
[2018-06-22] MEDS: FERROUS SULFATE 325 MG TAB PO SCH (09:40)
[2018-06-22] MEDS: GLUCOSAMINE SULF 500 MG CAP PO SCH (09:40)
--- NOTE | 2018-06-22 10:00 | ASMTLACE ---
YUE Length of stay for Answers: 14 days or more current admission Acuity / Level of Answers: Yes Care: Did the patient have an inpatient admission? Comorbidities - select Answers: Cerebrovascular disease all that apply (CVA, TIA, aneurysms, vasc ular dementia) Peripheral vascular disease Other Notes: Protein C deficiency; D VT # of Emergency department Answers: 1-2 visits in the last 6 months Social determinants Answers: History of substance abuse (ETOH, street drugs, prescription drugs, etc.) Score: 17 Date Signed: 06/22/2018 09:59 AM Electronically Signed By:Elizabeth Davis RN
--- NOTE | 2018-06-22 10:07 | PDIAF ---
- Diagnosis Diagnosis: BKA Code Status: Full Code - Medication Management Discharge Medications: Medications to Continue on Transfer Ferrous Sulfate [Ferrous Sulf 325 MG (*)] 325 mg PO DAILY 12/29/17 [Last Taken 06/08/18] Glucosamine Sulfate [Glucosamine Sulfate 500 MG (*)] 500 mg PO DAILY 12/29/17 [ Last Taken 06/08/18] Latanoprost 0.005% [Xalatan 0.005% (*)] 1 drop RTEYE HS 12/29/17 [Last Taken 06/17] Blackwood-3 Fatty Acids [Fish Oil 1000 mg (*)] 1,000 mg PO DAILY 12/29/17 [Last Taken 06/08/18] Acetaminophen [Tylenol ES 500 mg (*)] 1,000 mg PO TID 02/13/18 [Last Taken 06/08 09:00] Sennosides/Docusate Sodium [Senokot-S] 1 tab PO BID 02/13/18 [Last Taken 09:00] Clopidogrel Bisulfate [Clopidogrel] 75 mg PO DAILY 02/14/18 [Last Taken 06/08/18 ] Zolpidem Tartrate [Ambien 5MG (*)] 5 mg PO HS PRN 02/14/18 [Last Taken 06/07/18] Pantoprazole Sodium [Protonix] 20 mg pe PO DAILY 06/08/18 [Last Taken 06/08/18] Cyclobenzaprine [Flexeril 10 MG (*)] 10 mg PO TID PRN #15 tab 06/22/18 [Last Taken Unknown] Enoxaparin [Lovenox 100 MG (*)] 100 mg SC BID #6 syr 06/22/18 [Last Taken Unknown] Gabapentin [Neurontin 400 MG (*)] 600 mg PO TID #0 06/22/18 [Last Taken 12:00] Ibuprofen [Motrin (*)] 400 mg PO Q6HRS PRN #10 tab 06/22/18 [Last Taken Unknown] Warfarin Sodium 7.5 mg PO DAILY #30 tablet 06/22/18 [Last Taken Unknown] oxyCODONE IR [Oxycodone Ir (*)] 5 - 15 mg PO Q4HRS PRN #30 tab 06/22/18 [Last Taken Unknown] Additional Medication Instructions: STOP LOVENOX WHEN INR > 2. TITRATE WARFARIN TO GOAL INR 2-3 Discharge Medications: Refer to the Discharge Home Medication list for PRN reason. - Orders Services needed: Physical Therapy, Occupational Therapy Isolation Type: Contact Isolation Diet Recommendation: no restrictions on diet Additional Instructions: Ok to shower, but do not soak in a pool or tub. Dressing changes every other day or as needed: xeroform, 4x4s, kerlix, and yocasta bandage. Call to make a follow up appointment to have your leo removed late next week. Call with fever, chill, or increased pain. - Labs/Radiology PT/INR Date: 06/23/18 (DAILY UNTIL INR > 2) - Follow Up Care Current Providers and Referrals: Bandar East MD [Medical Doctor] - follow up in 1 week Whitley Fenton NP [Certified Nurse Practioner] - 06/27/18 1:00 pm NONE *PRIMARY CARE P,. [Primary Care Provider] - As per Instructions
[2018-06-22] MEDS: ACETAMINOPHEN 500 MG TAB PO SCH (10:45)
[2018-06-22 11:23] VITALS: BP 114/68
--- NOTE | 2018-06-22 11:30 | PCMIDPN ---
Assessment/Plan: Assessment/Plan: * Right BKA stump site erythema: Erythema appears most consistent with that expected for wound healing/mild area of probable hematoma laterally rather than stump site infection. Favor continued observation off antibiotics. Patient will follow-up in our office next week with Whitley Fenton NP for ongoing assessment. Advised patient to notify my office for any worsening symptomatology. Clinical findings and plan discussed with Dr. Meraz. 06/22/18 11:27 Subjective: Asked by Dr. Meraz to reassess patient prior to discharge based on concerns about erythema around BKA stump site to determine if additional antibiotic therapy required. Previously seen by our service prior to BKA. Please see Dr. De La Fuente's note dated 06/16/2018 for details. Patient's antibiotics were discontinued post BKA. Prior cultures grew MRSA, Enterobacter and group A Streptococcus. No fever or systemic symptoms currently. Mild pain present at BKA site. Objective: Vital Signs Temp Pulse Resp BP Pulse Ox 36.6 C 82 16 114/68 98 06/22/18 11:21 06/22/18 11:21 06/22/18 11:21 06/22/18 11:21 06/22/18 11:21 Laboratory Results 06/21/18 04:37 06/21/18 04:37 06/21/18 06/22/18 06/23/18 05:59 05:59 05:59 Intake Total 2742 1000 Output Total 2750 400 Balance -8 600 ESR 40 MM/HR (0-20) H 06/09/18 06:18 C-Reactive Protein 35.1 mg/L (<10.0) H 06/09/18 06:18 No antibiotic therapy - Physical Exam General Appearance: alert, no apparent distress, non-toxic Extremities: inflammation (Right BKA stump site with erythema present along incision line which appears consistent with that expected for wound healing; laterally slightly more prominent area with some ecchymotic change as well; no drainage with intact staple line; no cellulitis) Lymphatic: other (No lymphangitis right thigh) ICD10 Worksheet Patient Problems: Problems Problem Status Onset Cellulitis of foot Acute History of femoropopliteal bypass Acute Arterial occlusion, lower extremity Acute DVT (deep venous thrombosis) Acute Elevated INR Acute Pulmonary emboli Acute
[2018-06-22] MEDS: POLYETHYLENE GLYCOL 3350 17 GM PKT PO SCH (12:13)
--- NOTE | 2018-06-22 12:20 | ASMTDCNOTE ---
Case Management Discharge Discharge Order Complete? Answers: Yes Patient to Obtain Answers: Other Notes: [facility] Medications Transportation Arranged Answers: Other Notes: [facility] Transport will Pick (Date 06/22/2018 01:30 PM & Time) Faxed Final Orders Answers: Yes Agency/Facility Transfer Answers: Yes Report Printed & Faxed to Receiving Agency Discharge Comments Notes: D/w MD, final orders faxed. Stephanie at [facility] antonina, RN to call report Date Signed: 06/22/2018 12:19 PM Electronically Signed By:Elizabeth Davis RN
[2018-06-22] MEDS ORDERED: WARFARIN SODIUM 5 MG TAB PO ONE (16:00)
--- NOTE | 2018-06-22 16:37 | ASDISCHSUM ---
Discharge Information Plan Status:SNF Medically Cleared to Leave: Discharge Date:06/22/2018 02:41 PM D/C Disposition:[facility] ADT D/C Disposition:[facility] Projected Discharge Date:06/23/2018 11:00 AM Transportation at D/C:Wheelchair Van Discharge Delay Reason: Follow-Up Date:06/23/2018 11:00 AM Discharge Slot: Final Diagnosis: Placement Information Referral Type:*Custodial/SNF Referral ID:[id number] Provider Name:Megan Freire/Dominic Intucell Address 1:[address] Phone Number: Address 2: Fax Number: Liza:Megan Selection Factors: State:[place] Patient Contact Information Contact Name:CHELO Relationship: Address: Home Phone: Work Phone: City: [facility] Phone: [facility] Code: Email: Financial Information Financial Class:[employer] [facility] Primary Plan Desc:GELA LOPES Primary Plan Number:[id number] Secondary Plan Desc: Secondary Plan Number: Assessment Information LACE LACE Length of stay for Answers: 14 days or more current admission Acuity / Level of Answers: Yes Care: Did the patient have an inpatient admission? Comorbidities - select Answers: Cerebrovascular disease all that apply (CVA, TIA, aneurysms, vasc ular dementia) Peripheral vascular disease Other Notes: Protein C deficiency; D VT # of Emergency department Answers: 1-2 visits in the last 6 months Social determinants Answers: History of substance abuse (ETOH, street drugs, prescription drugs, etc.) Score: 17 Date Signed: 06/22/2018 09:59 AM Electronically Signed By:Elizabeth Davis RN [facility] Initial CM Assessment Living Arrangements What is your living Answers: Alone arrangement? Who do you live with? Type Of Residence What kind of residence do Answers: [facility] Facility you live in? Type of Residence Facility Name Notes: [facility] Discharge Plan Comments Coordination Status Comments Notes: Pt is a 62 y/o man admitted for right lower extremity pain and difficulty w/ ambulation. Pt lives at [facility] under LTC. Therapies have been ordered and awaiting recommendations. ID is consulting on this case. Needs are TBD at this time. CM to follow. Plan: Eventually return to [facility] Signed: 06/09/2018 04:39 PM Electronically Signed By:PIPPA Mayen [facility] CM Progress Note CM Note CM Note Notes: Pt will most likely need a BKA. Surgery will contact to evaluate. Updates sent to [facility]. CM to follow. Plan: [facility] Signed: 06/12/2018 12:03 PM Electronically Signed By:PIPPA Mayen [facility] CM Progress Note CM Note CM Note Notes: Pt seen by ID, may need BKA. Updated notes sent to . CM will continue to follow. DC Plan: [facility] Signed: 06/15/2018 11:08 AM Electronically Signed By:Elizabeth Davis RN [facility] CM Progress Note CM Note CM Note Notes: Pt going for R BKA today. Will need rehab, unclear if it will be Inpt acute or at SNF. Pt lives at [facility], w/f for needs. DC Plan: TBD Date Signed: 06/16/2018 11:20 AM Electronically Signed By:Elizabeth Davis RN [facility] CM Progress Note CM Note CM Note Notes: Updates sent to [facility]. Pt to return to [facility] once medically stable. Therapies are recommending [facility]. CM to follow. Plan: [facility] Signed: 06/19/2018 11:26 AM Electronically Signed By:PIPPA Mayen [facility] CM Progress Note CM Note CM Note Notes: Spoke w/Stephanie at , pt had BKA and working with therapies. Stephanie faxed updated notes and notified that pt will need PT/OT when he returns to . DC Plan: [facility] Signed: 06/21/2018 10:44 AM Electronically Signed By:Elizabeth Davis RN Case Management Discharge Plan Note Case Management Discharge Discharge Order Complete? Answers: Yes Patient to Obtain Answers: Other Notes: [place] Medications Transportation Arranged Answers: Other Notes: [facility] Transport will Pick (Date 06/22/2018 01:30 PM & Time) Faxed Final Orders Answers: Yes Agency/Facility Transfer Answers: Yes Report Printed & Faxed to Receiving Agency Discharge Comments Notes: Ritu/henrry LUJAN, final orders faxed. Stephanie at [facility] notifed, RIMA to call report Date Signed: 06/22/2018 12:19 PM Electronically Signed By:Elizabeth Davis RN Intervention Information
--- NOTE | 2018-06-22 16:54 | GDS ---
[f rep st] DISCHARGE SUMMARY DISCHARGE DIAGNOSES: 1. Peripheral vascular disease with occlusion of previous femoral-tibial bypass graft. 2. Failed catheter-directed tPA. 3. Chronic nonhealing foot wounds with surrounding cellulitis, status post below-knee amputation. 4. Protein C deficiency with severe hypercoagulable state. 5. Groin hematoma. HISTORY: The patient is a 63-year-old male with a known hypercoagulable state due to protein C defic iency. He has a history of recurrent PEs and DVTs, as well as arterial thrombosis. He also has freedom pheral vascular disease and recently had a fem-tib bypass graft to his right lower extremity. Unfort unately, he presented with an INR of 1.8 and a clotted off bypass graft. He went to IR, and catheter -directed tPA was attempted; however, followup imaging revealed ongoing poor perfusion to the leg. T he chronic, nonhealing ischemic foot wounds were infected and looked terrible and felt to be unlikely to heal. BKA was recommended and performed by Dr. East. He has done well post surgery. Infectiou s Disease has discontinued antibiotics post BKA as the infection was surgically cured. He remained o n an IV heparin drip throughout his entire hospitalization and is now on subcutaneous Lovenox. We wi ll transition him back to warfarin. I will increase his warfarin dose due to his subtherapeutic INR on presentation. This will need to be followed very closely at [facility]. DISCHARGE MEDICATIONS: Please see computerized record for full detailed list. New medications: 1. Lovenox 100 mg subcu b.i.d. until INR is greater than 2. 2. Oxycodone 5-15 mg p.o. q.4 hours as needed. 3. Warfarin 7.5 mg p.o. daily. 4. Neurontin increased to 600 mg p.o. t.i.d. ADDITIONAL DISCHARGE INSTRUCTIONS: 1. Daily INR until greater than 2 and then warfarin titration to goal INR 2-3. 2. Stop Lovenox when INR is greater than 2. 3. Dressing changes to new BKA stump per Dr. East. 4. Staple removal in Dr. East' office in 1 week. 5. Follow up with Whitley Fenton, nurse practitioner, Infectious Disease, appointment made June 01 at 1 p.m. Greater than 30 minutes' time was spent arranging this discharge. Patient was seen and examined by azam chavez on the day of discharge. /[id number]/MODL
--- NOTE | 2018-07-05 09:22 | GOP ---
DATE OF OPERATION: 06/16/2018 SURGEON: Bandar East MD ELECTRICAL TIMING DEVICE CALIBRATOR: Alejandra Sy, Nurse Practitioner. ANESTHESIOLOGIST: Dr. Spence. PREOPERATIVE DIAGNOSIS: Peripheral vascular disease and ischemia with occluded right femoral dorsali s pedis bypass graft. POSTOPERATIVE DIAGNOSIS: Peripheral vascular disease and ischemia with occluded right femoral dorsal is pedis bypass graft. PROCEDURE PERFORMED: Right below-knee amputation. FINDINGS: Patient was found to have completely occluded arteries and occluded bypass graft. Still h ad some significant venous flow, however, and his flaps appeared to be quite viable. DESCRIPTION OF PROCEDURE: Patient was taken to the operating room, where he received a satisfactory general endotracheal anesthesia by Dr. Spence. He was placed in supine position, prepped and draped in the usual sterile fashion. A fishmouth type incision was made over the proximal tibia approximate ly 8 cm from the tibial tubercle. Dissection extended down through the musculature down to the tibia itself, which was then exposed with the [place] elevator, and was then divided with a power saw, and t he anterior lip was beveled off, and the bone was smoothed off with a rasp. The fibula was dissected free and also divided approximately an inch shorter than the tibia. The posterior popliteal space w as entered. The tibial nerve was infiltrated with 0.5% Marcaine. It was tied high with 0 Vicryl sut ure and then divided and allowed to retract well behind the tibia. The popliteal vessels were ligate d and divided although the arteries were essentially completely occluded. Posterior flap was develop ed and thinned out. The majority of the soleus muscle was removed. The flap was then brought up ove r the end of the transected tibia and the muscle flap was closed with interrupted 0 Vicryl sutures. A second layer of interrupted 2-0 Vicryl sutures for the subcutaneous tissue and then skin leo fo r the skin with intermittent 3-0 Prolene, stay sutures as well. The wound was infiltrated with 0.5% Marcaine. Hemostasis was assured. The wound had been thoroughly irrigated prior to closure and was dressed with a bulky dressing and Shai wrap. He tolerated the procedure well. Blood loss was less th an 150 cc. There were no complications. /[id number]/MODL
== END 2018-06-22 14:41 | DRG 240 ==
LOC: EDUNIT# → F2N 18:42 → F3E 06-11 13:35
PROVIDERS: ADMIT Hospitalist; ATTEND Hospitalist
PROC: 3E03317 Introduction of Other Thrombolytic into Peripheral Vein, Percutaneous Approach (ICD-10-PCS; 2018-06-09)
PROC: 0Y6H0Z1 Detachment at Right Lower Leg, High, Open Approach (ICD-10-PCS; principal; 2018-06-16 12:30)
DX: T82.858A Stenosis of other vascular prosthetic devices, implants and grafts, initial encounter (principal); L03.115 Cellulitis of right lower limb; D68.59 Other primary thrombophilia; L76.32 Postprocedural hematoma of skin and subcutaneous tissue following other procedure; I73.9 Peripheral vascular disease, unspecified; L97.519 Non-pressure chronic ulcer of other part of right foot with unspecified severity; Z86.711 Personal history of pulmonary embolism; Z86.718 Personal history of other venous thrombosis and embolism; Z79.01 Long term (current) use of anticoagulants
CPT/HCPCS: 85520-90; 96365; 97116-GP; 97162-GP; 97164-GP; 97165-GO; 97168-GO; 97530-GO; 97530-GP; 97535-GO; C1757; C1760; C1769; C1892; C1894; J0696; J1100; J1170; J1335; J1644; J1650; J1885; J2250; J2270; J2310; J2405; J2543; J2550; J2704; J2997; J3010; J3370; Q9967

== ENCOUNTER 2018-10-30 11:32 | Emergency (ER) | payer MEDICAID ==
[2018-10-30 11:39] VITALS: BP 116/73
--- NOTE | 2018-10-30 11:44 | EDPHY ---
HPI/HX/ROS/PE/MDM Narrative: CHIEF COMPLAINT: Possible right leg infection HPI: 63 year old male with history of recent right below-knee amputation in July with Dr. East. He presents today complaining of possible infection to the surgical area. On Tuesday, his home nurse noted some erythema, and he saw his surgeon, Dr. East, that day. Tuesday morning, two more nurses said the surgical site looked infected, and he had developed burning pain in the area. He was prescribed Doxycycline, which relieved his discomfort. Today, he has a different kind of pain in the area. A visiting GROUND WOOD SUPERVISOR evaluated the leg and referred him to the emergency department for further evaluation. He has two bandaged areas, and states he has two chronic wounds that had originally been scabbed over. Now, they have been open for the past 2-3 weeks. He denies any purulent drainage, but endorses increasing erythema surrounding both ulcerations. He denies fever, nausea, vomiting, diarrhea, urinary complaints, or other associated symptoms. REVIEW OF SYSTEMS: A comprehensive 10 system review of systems is otherwise negative aside from elements mentioned in the history of present illness and medical decision making. PMH: History of CVA, multiple DVTs, diverticulitis, PE, alcoholism, right BKA. SOCIAL HISTORY: Single. Lives in [place]. History of alcoholism. PHYSICAL EXAM: General:Patient is alert, in no acute distress. ENT:Eyes are normal to inspection. ENT inspection normal. Neck: Normal inspection. Full range of motion. Respiratory:No respiratory distress. Breath sounds normal bilaterally. Cardiovascular: Regular rate and rhythm. Strong peripheral pulses. Normal cap refill. Abdomen:The abdomen is nontender to palpation. There are no peritoneal signs. There are normal bowel sounds. Back: Normal to inspection. No tenderness to palpation. Skin: Normal color. No rash. Warm and dry. Extremities: Right BKA. Surgical area has two bandaged ulcerations. Bandages removed, both ulcerations have surrounding erythema, which extends diffusely around the amputation site. No swelling or purulent discharge. Neuro: Oriented x3. Normal motor function. Normal sensory function. ED Course: 63 y/o male presents with concern for cellulitis to his BKA surgical site. The site is mildly erythematous. There are two ulcerations with surrounding erythema which the patient states are chronic. No purulent discharge noted. The patient is afebrile and does not appear systemically ill. Plan to consult with infectious disease and general surgery. Plan for labs including CBC, chemistries. Laboratory studies are unremarkable. No elevated WBC. 11:[address] Amaro, infectious disease specialist. He recommends switching the patient's antibiotic from Doxycycline to Keflex. 12:[address] Ann, general surgeon, who has evaluated the patient. He concurs with mild cellulitis and the plan for Keflex. Reassessed. Plan to discharge patient home in good condition with prescription for Keflex. He will follow up with Dr. East, general surgeon, next week. Follow up and return precautions discussed. The patient is comfortable with this plan. - Data Points Laboratory Results: Laboratory Results 10/30/18 12:00 10/30/18 12:00 10/30/18 10/30/18 12:00 12:00 WBC 6.18 10^3/uL 10^3/uL (3.80-9.50) RBC 4.92 10^6/uL 10^6/uL (4.40-6.38) Hgb 14.0 g/dL g/dL (13.7-17.5) Hct 41.3 % % (40.0-51.0) MCV 83.9 fL fL (81.5-99.8) MCH 28.5 pg pg (27.9-34.1) MCHC 33.9 g/dL g/dL (32.4-36.7) RDW 14.8 % % (11.5-15.2) Plt Count 283 10^3/uL 10^3/uL (150-400) MPV 8.2 fL L fL (8.7-11.7) Neut % (Auto) 63.8 % % (39.3-74.2) Lymph % (Auto) 24.4 % % (15.0-45.0) Dunn % (Auto) 7.6 % % (4.5-13.0) Eos % (Auto) 3.2 % % (0.6-7.6) Baso % (Auto) 0.8 % % (0.3-1.7) Nucleat RBC Rel Count 0.0 % % (0.0-0.2) Absolute Neuts (auto) 3.94 10^3/uL 10^3/uL (1.70-6.50) Absolute Lymphs (auto) 1.51 10^3/uL 10^3/uL (1.00-3.00) Absolute Monos (auto) 0.47 10^3/uL 10^3/uL (0.30-0.80) Absolute Eos (auto) 0.20 10^3/uL 10^3/uL (0.03-0.40) Absolute Basos (auto) 0.05 10^3/uL 10^3/uL (0.02-0.10) Absolute Nucleated RBC 0.00 10^3/uL 10^3/uL (0-0.01) Immature Gran % 0.2 % % (0.0-1.1) Immature Gran # 0.01 10^3/uL 10^3/uL (0.00-0.10) Sodium 137 mEq/L mEq/L (135-145) Potassium 4.3 mEq/L mEq/L (3.5-5.2) Chloride 104 mEq/L mEq/L (97-110) Carbon Dioxide 25 mEq/l mEq/l (22-31) Anion Gap 8 mEq/L mEq/L (6-14) BUN 17 mg/dL mg/dL (7-23) Creatinine 0.8 mg/dL mg/dL (0.7-1.3) Estimated GFR > 60 Glucose 86 mg/dL mg/dL (70-100) Calcium 9.5 mg/dL mg/dL (8.5-10.4) General Time Seen by Provider: 10/30/18 11:37 Initial Vital Signs: Initial Vital Signs Temperature (C) 36.5 C 10/30/18 11:36 Heart Rate 71 10/30/18 11:36 Respiratory Rate 18 10/30/18 11:36 Blood Pressure 116/73 10/30/18 11:36 O2 Sat (%) 96 10/30/18 11:36 O2 Delivery Mode Room Air Allergies/Adverse Reactions: No Known Allergies Allergy (Verified 10/30/18 11:36) Home Medications: Medication Instructions Recorded Ferrous Sulfate [Ferrous Sulf 325 325 mg PO DAILY 12/29/17 MG (*)] Glucosamine Sulfate [Glucosamine 500 mg PO DAILY 12/29/17 Sulfate 500 MG (*)] Latanoprost 0.005% [Xalatan 0.005% 1 drop RTEYE HS 12/29/17 (*)] [place]-3 Fatty Acids [Fish Oil 1000 1,000 mg PO DAILY 12/29/17 mg (*)] Acetaminophen [Tylenol ES 500 mg 1,000 mg PO TID 02/13/18 (*)] Sennosides/Docusate Sodium 1 tab PO BID 02/13/18 [Senokot-S] Clopidogrel Bisulfate [Clopidogrel] 75 mg PO DAILY 02/14/18 Zolpidem Tartrate [Ambien 5MG (*)] 5 mg PO HS PRN 02/14/18 Pantoprazole Sodium [Protonix] 20 mg pe PO DAILY 06/08/18 Cyclobenzaprine [Flexeril 10 MG 10 mg PO TID PRN #15 tab 06/22/18 (*)] Enoxaparin [Lovenox 100 MG (*)] 100 mg SC BID #6 syr 06/22/18 Gabapentin [Neurontin 400 MG (*)] 600 mg PO TID #0 06/22/18 Ibuprofen [Motrin (*)] 400 mg PO Q6HRS PRN #10 tab 06/22/18 Warfarin Sodium 7.5 mg PO DAILY #30 tablet 06/22/18 oxyCODONE IR [Oxycodone Ir (*)] 5 - 15 mg PO Q4HRS PRN #30 tab 06/22/18 Cephalexin [Keflex] 500 mg PO Q6H #28 cap 10/30/18 Departure - Departure Disposition: Home, Routine, Self-Care Clinical Impression: Cellulitis Qualifiers: Site of cellulitis: extremity Site of cellulitis of extremity: lower extremity Laterality: right Qualified Code(s): L03.115 - Cellulitis of right lower limb Condition: Good Instructions: Cellulitis (ED) Additional Instructions: Follow up with Dr. East next week. Take Keflex as prescribed. Please discontinue Doxycycline. Please keep your leg elevated as much as possible. Return to the Emergency Department for fever, increasing redness, discharge from wound, increasing pain or other worsening of condition. Referrals: FRANCINE WELCH [Other] - As per Instructions Bandar East MD [Medical Doctor] - As per Instructions Prescriptions: Cephalexin [Keflex] 500 mg PO Q6H #28 cap Report Scribed for: Lewis Diallo Report Scribed by: Rita Dean Date of Report: 10/30/18 Time of Report: 12:34 Physician Review and Approval Statement: Portions of this note were transcribed by an ED scribe. I personally performed the history, physical exam, and medical decision making; and confirm the accuracy of the information in the transcribed note.
[2018-10-30 12:13] LABS: PLATELET COUNT 283 10^3/uL (150-400)
--- NOTE | 2018-10-30 13:46 | GCON ---
CHIEF COMPLAINT: Right BKA infection. HISTORY OF PRESENT ILLNESS: This is a 63-year-old male, well known to our clinic, with a history of peripheral vascular disease, who previously underwent a right femoral to dorsalis pedis bypass graft. His bypass graft eventually clotted and he underwent a right BKA as a result. This was approximately 4-1/2 months ago. The patient reports that he was doing well until approximately 3 to 4 weeks ago, he noticed two new scabs along his BKA incision. He was seen in our office last week to have these scabs evaluated. It was not felt that he had an infection and he was not prescribed antibiotics. Upon return to [facility], the nurses noted increased erythema and the patient had worsening burning pain. He was placed on a course of doxycycline. Today, the patient reports that the redness around his open wounds continues to increase. He denies purulent drainage. He denies fever and chills. His white blood cell count is normal at 6.1. He is afebrile. PAST MEDICAL HISTORY: Protein C deficiency, peripheral vascular disease, history of DVTs and PEs, history of stroke, history of diverticulitis, alcohol abuse, homelessness, however, he is currently residing at a SNF. PAST SURGICAL HISTORY: Right femoral-dorsalis pedis bypass graft, multiple right toe amputations for gangrene, right BKA. ALLERGIES: No known drug allergies. FAMILY HISTORY: Noncontributory. SOCIAL HISTORY: The patient was previously homeless; however, he has been residing at [facility] for the last several months following his numerous surgeries this year. He is a nonsmoker and denies use of recreational drugs. REVIEW OF SYSTEMS: A 10-point review of systems was performed and is negative, aside from what is in the HPI. PHYSICAL EXAM: VITAL SIGNS: Blood pressure 116/73, heart rate 71, respiratory rate 18, O2 saturation 96% on room air, temperature 36.5. GENERAL: This is a well-appearing 63-year-old male lying on gurney in the emergency room. He is alert and awake, in no acute distress. HEENT: Normocephalic, atraumatic. Pupils are equal and round. No gross hearing deficits. Mucous membranes are moist. CARDIAC: Regular rate and rhythm, no clicks, murmurs, or rubs. LUNGS: Clear to auscultation bilaterally. No increased work of breathing. ABDOMEN: Soft, nondistended, nontender. EXTREMITIES: Right stump has diffuse erythema. It is extremely tender to palpation. There is an approximately 2 x 2 cm superficial wound on the anterior aspect of the stump. There is an additional wound on the lateral aspect of the stump that measures approximately 1.5 x 1.5 cm. No active drainage. No malodor. NEUROLOGIC: Alert and oriented x3. PSYCHIATRIC: Appropriate mood and affect. IMPRESSION/PLAN: This is a 63-year-old male well known to us who has a history of severe peripheral vascular disease due to protein C deficiency. He most recently underwent a right below-knee amputation after a failed femoral- dorsalis pedis bypass graft in May of this year. He had healed completely from this surgery. Approximately 3 to 4 weeks ago, he began to experience 2 scabs that eventually turned into open wounds. Over this time period, he notes increased pain that he describes as a burning sensation. He was started on a course of doxycycline at his retirement facility; however, he reports that the erythema and pain has continued to get worse despite being on antibiotics. Today, his below-knee amputation stump does appear to be infected. His white blood cell count is within normal limits and he is afebrile. We will switch his antibiotics from doxycycline to q.i.d. Keflex, which will provide better coverage. He will follow up in our office next week. He knows to call with fever, chills, or worsening symptoms. The staff at [facility] can continue to apply wet-to-dry dressings daily. This patient was seen by Dr. Ann and myself. Dr. Ann agrees to plan. /[id number]/MODL MTDD
== END 2018-10-30 13:48 | disposition home or self-care (01) ==
LOC: EDUNIT#
DX: T81.41XA Infection following a procedure, superficial incisional surgical site, initial encounter (principal); Y82.9 Unspecified medical devices associated with adverse incidents

== ENCOUNTER 2018-12-05 13:25 | Day surgery (SDC) | payer MEDICAID ==
--- NOTE | 2018-12-04 11:27 | GHP ---
[f rep st] PREOP HISTORY AND PHYSICAL DATE OF ADMISSION: 12/05/2018 CHIEF COMPLAINT: Right stump infection. HISTORY OF PRESENT ILLNESS: This is a 63-year-old male status post right below- knee amputation several months ago. BK incision had entirely healed, until last month when he presented to the emergency department complaining of open wounds and infection in his stump. At that time, he was placed on a course of Keflex. Since then, he has been undergoing routine dressing changes at [facility], his place of current residence. He has been followed in our office weekly for wound management. At his most recent visit, debridement was attempted under local anesthetic; however, the patient was not able to tolerate this due to pain. He has no fever or chills. He reports extreme pain. PAST MEDICAL HISTORY: Protein C deficiency, peripheral vascular disease, a history of DVTs and PEs, a history of stroke, a history of diverticulitis, alcohol abuse, homelessness. PAST SURGICAL HISTORY: Right femoral dorsalis pedis bypass graft, multiple toe amputations for gangrene, right BKA. MEDICATIONS: 1. Percocet 5/325 mg tablets as needed for pain,. 2. Neurontin 300 mg daily. 3. Warfarin 7.5 mg daily. ALLERGIES: No known drug allergies. SOCIAL HISTORY: This patient has previously been homeless; however, he has been residing at [facility] for the last several months following his numerous surgeries last year. He is a nonsmoker and denies the use of recreational drugs. REVIEW OF SYSTEMS: A 10-point review of systems was performed and is negative aside from what is in the HPI. PHYSICAL EXAM: GENERAL: This is a well-appearing 63-year-old male resting on the exam table in the office in no acute distress. HEENT: Normocephalic, atraumatic. Pupils are equal and round. No gross hearing deficit. Mucous membranes are moist. CARDIAC: Regular rate and rhythm. No clicks, murmurs or rubs. LUNGS: Clear to auscultation bilaterally. No increased work of breathing. ABDOMEN: Soft, nondistended, nontender. EXTREMITIES: Right BKA stump: There are 2 open wounds that measure approximately 1.5 cm in diameter each. There is healthy pink granulation tissue present with a thin layer of slough above it. There is slight surrounding erythema, that is improved since last visit. No surrounding induration or warmth. NEUROLOGIC: Alert and oriented x3. PSYCHIATRIC: Appropriate mood and affect. IMPRESSION/PLAN: This is a 63-year-old male well known to us who has a history of severe peripheral vascular disease due to protein C deficiency. He is status post right below-knee amputation after a failed femoral dorsalis pedis graft in May of last year. He had completely healed from surgery until about 8 weeks ago when he began to experience that eventually turned to open wounds. Since then, his wounds have remained stable. We have attempted in-office debridement under local anesthetic; however, the patient could not tolerate this due to pain. We plan to take him to the operating room to perform irrigation and debridement. All risks and options have been discussed. Risks of surgery include, but are not limited to, infection, bleeding, need for further surgery, need for higher amputation, heart attack and . Patient understands and wishes to proceed. /[id number]/MODL MTDD
[2018-12-05] MEDS ORDERED: ceFAZolin 2 GM/DEXTROSE 100 ML IV ONE (13:38)
[2018-12-05] MEDS ORDERED: LR 1,000 ML IV ONE (13:52)
--- NOTE | 2018-12-05 14:05 | PDHPUP ---
History & Physical Update H&P update statement: This history and physical update is based on an assessment of the patient which was completed after admission or registration (within 24 hours), but prior to the surgery/procedure. H&P update: H&P reviewed & patient examined, no change in patient's condition since H&P completed
[2018-12-05] MEDS ORDERED: POLYMYXIN B SULFATE 500,000 UNIT/10 ML SYR IRR ONE (14:29)
[2018-12-05] MEDS ORDERED: BUPIVACAINE 0.5% 30 ML SDV ONE (14:29)
[2018-12-05] MEDS ORDERED: BACITRACIN 50,000 UNITS/10 ML SYR IRR ONE (14:30)
[2018-12-05] MEDS ORDERED: fentaNYL 100 MCG/2 ML INJ ONE ×2 (14:56→15:58)
[2018-12-05] MEDS ORDERED: fentaNYL 100 MCG/2 ML INJ IVP PRN ×2 (15:06→15:28)
[2018-12-05] MEDS ORDERED: oxyCODONE IR 5 MG TAB PO PRN (15:28)
[2018-12-05] MEDS ORDERED: ALBUTEROL 3 ML DEYVIAL IH PRN (15:28)
[2018-12-05] MEDS ORDERED: NALOXONE HCL 0.4 MG/ML INJ IVP PRN (15:28)
[2018-12-05] MEDS ORDERED: ONDANSETRON 4 MG/2 ML VIAL IVP PRN (15:28)
[2018-12-05] MEDS ORDERED: HYDROmorphONE/DILAUDID 2 MG/ML INJ IVP PRN (15:28)
[2018-12-05] MEDS ORDERED: MIDAZOLAM 2 MG/2 ML VIAL IVP ONE (15:28)
[2018-12-05] MEDS ORDERED: DEXAMETHASONE 4 MG/ML VIAL IVP PRN (15:28)
[2018-12-05] MEDS ORDERED: MIDAZOLAM 2 MG/2 ML VIAL ONE (15:30)
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
[2018-12-05] MEDS ORDERED: PROPOFOL 200 MG/20 ML VIAL ONE (15:31)
[2018-12-05] MEDS ORDERED: RANITIDINE 50 MG/2 ML VIAL ONE (15:35)
[2018-12-05] MEDS ORDERED: ONDANSETRON 4 MG/2 ML VIAL ONE (15:35)
[2018-12-05] MEDS ORDERED: METOCLOPRAMIDE 10 MG/2 ML VIAL ONE (15:36)
[2018-12-05 15:43] LABS: INR 2.04 (0.83-1.16); PROTIME(PATIENT) 23.1 SEC (12.0-15.0)
[2018-12-05] MEDS ORDERED: HYDROmorphONE/DILAUDID 2 MG/ML INJ ONE (16:08)
--- NOTE | 2018-12-05 16:46 | POSTOPPROG ---
Post Op Note Date of Operation: 12/05/18 Surgeon: Bandar East Logistics Coordinator: Ansley Carpio Anesthesiologist: Skip Diego Anesthesia: GET(General Endotracheal) Pre-op Diagnosis: nonhealing wounds of BKA stump, hx MRSA Post-op Diagnosis: same Procedure: incisional debridement of nonhealing BKA stump wounds x 2 Findings: debrided down to healthy bleeding tissue. no bone exposed Inf/Abcess present in the surg proc area at time of surgery?: No Depth: Superfical (Skin SQ) EBL: Minimal Complications: none
--- NOTE | 2018-12-05 16:48 | POSTANESTH ---
Post Anesthetic Evaluation Cardiovascular Status: Normal, Stable Respiratory Status: Normal, Stable Level of Consciousness/Mental Status: Can Participate in Eval, Mildly Sleepy, Arousable Pain Control: Adequate, Prn Tx Ordered Nausea/Vomiting Control: Adequate, Prn Tx Ordered Complications Possibly Related to Anesthesia: None Noted
--- NOTE | 2018-12-05 16:52 | PDIAF ---
- Diagnosis Diagnosis: s/p incisional debridement of BKA stump Code Status: Full Code - Medication Management Pole Shaver Antibiotics: doxycycline 100 mg daily x 14 Discharge Medications: electronically signed and located in the Home Medication List. PICC Care - Routine: N/A - Orders Isolation Type: Contact Isolation Diet Recommendation: no restrictions on diet Diet Texture: Regular Texture Diet Wound Care Instructions: May resume all home medicines, including coumadin, per routine. Rx doxycycline, oxycodone. Please dress wounds daily with xeroform or vaseline gauze, 4x4 gauze, kerlix (may cover all that with an SHERRIE if you'd like) . Additional Instructions: May resume all home medicines, including coumadin, per routine. Rx doxycycline, oxycodone. Please dress wounds daily with xeroform or vaseline gauze, 4x4 gauze , kerlix (may cover all that with an SHERRIE if you'd like). - Follow Up Care Current Providers and Referrals: NONE *PRIMARY CARE P,. [Primary Care Provider] - Bandar East MD [Medical Doctor] - follow up in 1 week
[2018-12-05 18:25] VITALS: BP 148/78
--- NOTE | 2018-12-20 23:02 | GOP ---
[f rep st] OPERATIVE REPORT DATE OF OPERATION: 12/05/2018 SURGEON: Bandar East MD NEONATAL NURSE PRACTITIONER: Ansley Carpio PA-C. ANESTHESIOLOGIST: Dr. Diego. PREOPERATIVE DIAGNOSIS: Nonhealing wound to the right below-knee amputation stump with a history of methicillin-resistant Staphylococcus aureus. POSTOPERATIVE DIAGNOSIS: Nonhealing wound to the right below-knee amputation stump with a history of methicillin-resistant Staphylococcus aureus. PROCEDURE PERFORMED: Excisional debridement of nonhealing below-knee amputation stump wound with dir ect closure x2. FINDINGS: The patient was found to have good healthy bleeding tissue with no bone exposed in both le sions, which measured approximately 3 cm across. DESCRIPTION OF PROCEDURE: The patient was taken to the operating room where he received satisfactory general endotracheal anesthesia by Dr. Diego. He was placed in a supine position, and prepped and d raped in the usual sterile fashion. Elliptical incisions were made around the lesions, which were th en completely excised down to good fresh tissue which was bleeding. Hemostasis was obtained. Both l esions were handled in a similar manner. The wounds were then closed with interrupted 3-0 nylon alberto ress sutures. Wounds were infiltrated with 0.5% Marcaine. Hemostasis was obtained. The wounds were dressed with bulky dressing. He tolerated the procedure well, was taken to the recovery room in goo d condition. There were no complications. /[id number]/MODL
== END 2018-12-05 20:58 ==
LOC: FSGY 13:25 → EEVIPCON 16:30 → FSGY 20:58
PROVIDERS: ATTEND Surgery
PROC: 0JDN0ZZ Extraction of Right Lower Leg Subcutaneous Tissue and Fascia, Open Approach (ICD-10-PCS; principal; 2018-12-05 15:00)
DX: L03.115 Cellulitis of right lower limb (principal); T87.43 Infection of amputation stump, right lower extremity; D68.59 Other primary thrombophilia; I73.9 Peripheral vascular disease, unspecified; Z79.2 Long term (current) use of antibiotics; Z79.01 Long term (current) use of anticoagulants; T86.821 Skin graft (allograft) (autograft) failure; Z86.718 Personal history of other venous thrombosis and embolism; Z86.711 Personal history of pulmonary embolism; Z86.73 Personal history of transient ischemic attack (TIA), and cerebral infarction without residual deficits; Z86.14 Personal history of Methicillin resistant Staphylococcus aureus infection; Z87.19 Personal history of other diseases of the digestive system; Z89.511 Acquired absence of right leg below knee; Z59.0 Homelessness
CPT/HCPCS: J0690; J1170; J2250; J2405; J2704; J2765; J2780; J3010

== ENCOUNTER 2019-03-23 14:36 | Emergency (ER) | payer SELFPAY ==
[2019-03-23 14:44] VITALS: BP 144/86
== END 2019-03-23 15:40 | disposition left against medical advice (07) ==
DX: Z53.21 Procedure and treatment not carried out due to patient leaving prior to being seen by health care provider (principal)

== ENCOUNTER 2019-03-24 10:44 | Emergency (ER) | payer SELFPAY ==
--- NOTE | 2019-03-24 10:51 | EDPHY ---
H & P Stated Complaint: open wound on right leg BKA Time Seen by Provider: 03/24/19 10:51 HPI/ROS: HPI: This is a 63-year-old male who presents with Chief Complaint: Wound check, concern for no home health Location: Right below-knee Quality: Wound check Duration: Months Signs and Symptoms: No bleeding, no radiation, no numbness, no weakness, no tingling, no incontinence, no decreased range of motion, no swelling, + pain, no fever Timing: Chronic Severity: Moderate Context: Patient has a history of right below-knee amputation with surgical wound dehiscence, peripheral vascular disease who underwent right femoral to dorsalis pedis bypass graft. His graft ventrally clotted any underwent right below-knee amputation in May 2018. At 1 point, his incision was fully healed from the surgery however, he then developed 2 areas of wound dehiscence at the medial and lateral aspects of his surgical incision. He has completed oral antibiotics. He has been re-evaluated by Dr. East who recommends revision of his amputation site and possibly converting to an above knee amputation to promote healing. The patient is adamantly against this as stop following up with Dr. East. He continues to have persistently open wounds at the surgery site. No symptoms of infection including redness, induration, purulent drainage , fevers or chills. He has phantom pain of the residual limb. Chart review shows that he was seen on 03/07/2019 by the wound healing center, who had dressing changes with wound clinic every 2 weeks. He was to continue local wound care. Patient was seen at the clinic yesterday and had the dressings changed for the 1st time since 03/07/2019. He came to the emergency room yesterday to be evaluated but left without being seen. Patient reports that he normally has home health 3 times week to help with dressing changes and due to insurance changes this has not been occurring. Patient is a very difficult historian and appears that the reason that he came to the emergency room today was for wound check, dressing change and case management consult for home health. Followed by the wound healing Center for a long time as well as a patient of Dr. East. Modifying Factors: Local wound care Comment: ROS: A comprehensive 10 system review of systems is otherwise negative aside from elements mentioned in the history of present illness. MEDICAL/SURGICAL/SOCIAL HISTORY: Medical history: stroke, Low protein C, hx multiple DVTs, ETOH, diverticulitis , PE-on Coumadin, peripheral vascular disease Surgical history: Fem-pop bypass, resection of toes, right bilateral knee amputation Social history: Disabled. Nonsmoker. CONSTITUTIONAL: Chronically ill-appearing elderly white male who is difficult at times and is a very difficult historian, awake and alert, no obvious distress HEENT: Atraumatic and normocephalic, PERRL, EOMI. Nares patent; no rhinorrhea; no nasal mucosal edema. Tympanic membranes clear. Oropharynx clear, no exudate and moist pink mucosa. Airway patent. No lymphadenopathy. No meningismus. Cardiovascular: Normal S1/S2, regular rate, regular rhythm, without murmur rub or gallop. PULMONARY/CHEST: Symmetrical and nontender. Clear to auscultation bilaterally. Good air movement. No accessory muscle usage. ABDOMEN: Soft, nondistended, nontender, no rebound, no guarding, no peritoneal signs, no masses or organomegaly. No CVAT. EXTREMITIES: 2/2 pulses, strength 5/5, right BKA circumference right calf is round 50 cm right thigh around 55 cm. The right BKA incision has 2 open wounds , laterally 2 x 2.1 x 0.2 cm and medially 4.4 x 4.5 x 0.2 cm. There is healthy granulation tissue in the base of these wounds-sharp debridement is not necessary. There is no surrounding erythema, induration or purulent discharge. NEUROLOGICAL: no focal neuro deficits. GCS 15. SKIN: Warm and dry, no erythema. no rash. Good capillary refill. Source: Patient, RN/MD, Old records Exam Limitations: No limitations - Personal History Current Tetanus/Diphtheria Vaccine: Yes Current Tetanus Diphtheria and Acellular Pertussis (TDAP): Yes Tetanus Vaccine Date: 2014 - Medical/Surgical History Hx Asthma: No Hx Chronic Respiratory Disease: No Hx Diabetes: No Hx Cardiac Disease: No Hx Renal Disease: No Hx Cirrhosis: No Hx Alcoholism: Yes Hx HIV/AIDS: No Hx Splenectomy or Spleen Trauma: No Other PMH: stroke, Low protein C, hx multiple DVTs, ETOH, diverticulitis, PE, fem pop bypass, resection of toes, r bka - Social History Smoking Status: Never smoked Constitutional: Initial Vital Signs Temperature (C) 37 C 03/24/19 10:45 Heart Rate 85 03/24/19 10:45 Respiratory Rate 14 03/24/19 10:45 Blood Pressure 160/91 H 03/24/19 10:45 O2 Sat (%) 96 03/24/19 10:45 O2 Delivery Mode Room Air Allergies/Adverse Reactions: No Known Allergies Allergy (Verified 10/30/18 11:36) Home Medications: Medication Instructions Recorded Glucosamine Sulfate [Glucosamine 500 mg PO DAILY 12/29/17 Sulfate 500 MG (*)] Latanoprost 0.005% [Xalatan 0.005% 1 drop RTEYE HS 12/29/17 (*)] [place]-3 Fatty Acids [Fish Oil 1000 1,000 mg PO DAILY 12/29/17 mg (*)] Acetaminophen [Tylenol ES 500 mg 1,000 mg PO TID 02/13/18 (*)] Gabapentin [Neurontin 400 MG (*)] 600 mg PO TID #0 06/22/18 Warfarin Sodium 7.5 mg PO DAILY #30 tablet 06/22/18 Medical Decision Making ED Course/Re-evaluation: Vital signs reviewed and show mildly elevated blood pressure but no signs of SIRS or sepsis. Dressing removed; tetracaine/Marcaine applied; irrigated and cleaned thoroughly. Debridement not required. Wet to dry dressing and then clean sterile bulky dressing placed. No antibiotics are indicated at this time. manager housekeeping consult for insurance issues, home health and wound care follow-up. Notified by case management that she has set up [facility] to come and see the patient on Tuesday for 1st wound check and then Tuesday, Tuesday, Tuesday schedule. No signs of neurovascular compromise/tenting of skin/compartment syndrome/ extremities and joints examined above and below area of concern and are neurovascularly intact/cellulitis/gangrene This patient was seen under the supervision of my secondary supervising physician. I evaluated and cared for this patient independently. Differential Diagnosis: Differential diagnosis includes but is not limited to wound dehiscence, cellulitis, abscess, wound infection, peripheral vascular disease, phantom pain. - Data Points Medications Given: Discontinued Medications Benzocaine/Butamben/Tetracaine HCl (Cetacaine [place]) 1 spray TP EDNOW ONE Stop: 03/24/19 11:06 Last Admin: 03/24/19 12:04 Dose: 1 yaw Departure - Departure Disposition: Home, Routine, Self-Care Clinical Impression: History of right below knee amputation, Encounter for wound care Postoperative wound dehiscence Qualifiers: Encounter type: initial encounter Qualified Code(s): T81.31XA - Disruption of external operation (surgical) wound, not elsewhere classified, initial encounter Condition: Good Instructions: Wound Infection (ED), Wound Healing and Your Diet (ED), Wound Dehiscence (ED) Additional Instructions: Home health will come to your house Tuesday, Tuesday, Tuesday. Please follow-up with your primary care provider in the next 3-4 days. Please follow-up with the wound healing Center in the next 7-10 days. Continue local wound care with wet-to-dry dressing changes every other day. Return to the ER immediately if you experience redness, red streaks, have fevers /chills, flu like symptoms, limited range of motion, or any other symptoms that concern you. Referrals: Giselle Aragon, PAC [Physician Publications Manager] - As per Instructions Wound Healing Center,[facility] [Clinic] - As per Instructions
[2019-03-24] MEDS: CETACAINE SPRAY 20 GM TP ONE ×2 (11:26→12:04)
[2019-03-24 13:05] VITALS: BP 157/98
--- NOTE | 2019-03-24 14:17 | ASMTCMCOM ---
CM Note CM Note Notes: Pt presented to the Emergency Department for a wound check secondary to a right below the knee amputation. Asked to see pt regarding insurance issues and home health care concerns by Darcy Palacios PA-C. Reviewed chart. History includes a right BKA with wound dehiscence, PVD, CVA, multiple DVT's, low protein C, diverticulitis, ETOH, PE on Coumadin, and a fem-pop bypass. Pt is single and resides in [place]; he is disabled. Met with pt. Pt reports previously having Medicaid, but recently switching to [employer]. The pt states his Medicaid policy lapsed the end of January and his [employer] policy became effective on 03/22/19. The pt states he "still does not have the policy or group numbers." "[employer] sent his cards in the mail and they should arrive later next week." The pt requested assistance re-establishing home health care. Pt states he was previously open with [facility] for RN services only. The following insurance information was obtained from the pt: [employer] Effective date: 03/22/19 Application ID number: [id number] Confirmation number: [id number] Monthly premium of $147 paid 03/22/19 Pt reports he is a pt at the [facility] and his PCP is Dr. Giselle Aragon. Call placed to [facility] ([facility]) ; spoke with Ade. Per Ade, able to tentatively accept pt; pending insurance verification on Tuesday03/27/19. New referral sent via [employer]. Handwritten prescription obtained for Home Health Care orders (wet to dry dressing changes, [id number], RN services only). Rx scanned into [employer] and manually faxed to [facility] . Start of care arranged for Tuesday03/26/19. Ade states if Maura denies insurance coverage, [facility] will bill Medicaid and/or write off pt's first visit. Left report with insurance information on [facility] report line xt [id number]. Updates provided to Darcy Palacios PA-C, Ana, RN and pt. Call placed to pt at home to confirm home health services with a start of care for Tuesday. [facility] phone number provided. Pt verbalized understanding. Pt to follow up as directed. CM available for any further issues or concerns. Date Signed: 03/24/2019 02:17 PM Electronically Signed By:Terrie Garcia RN
--- NOTE | 2019-03-24 14:17 | ASDISCHSUM ---
Discharge Information Plan Status:Home with Home Health Medically Cleared to Leave:03/24/2019 Discharge Date:03/24/2019 01:05 PM CM D/C Disposition:Home Health Service ADT D/C Disposition:Home, Routine, Self-Care Projected Discharge Date:03/24/2019 11:00 AM Transportation at D/C:None or Unknown Discharge Delay Reason: Follow-Up Date:03/24/2019 11:00 AM Discharge Slot:2 - 12:01 pm - 18:00 pm Final Diagnosis:Right below knee amputation, wound check Placement Information Referral Type:*Home Health Care Services Referral ID:[id number] Provider Name:[facility] Address 1:[address] [facility] [address] Phone Number: Address 2: Fax Number: [facility]:[place] Selection Factors:Insurance Driven; Patient/Fa gene Choice State:[place] Patient Contact Information Contact Name:CHELO Relationship: Address: Home Phone: Work Phone: City: [facility] Phone: [facility]/Zip Code: Email: Financial Information Financial Class:Self-Pay Primary Plan Desc:SELF PAY Primary Plan Number: Secondary Plan Desc: Secondary Plan Number: Assessment Information [facility] CM Progress Note CM Note CM Note Notes: Pt presented to the Emergency Department for a wound check secondary to a right below the knee amputation. Asked to see pt regarding insurance issues and home health care concerns by Darcy Palacios PA-C. Reviewed chart. History includes a right BKA with wound dehiscence, PVD, CVA, multiple DVT's, low protein C, diverticulitis, ETOH, PE on Coumadin, and a fem-pop bypass. Pt is single and resides in [place]; he is disabled. Met with pt. Pt reports previously having Medicaid, but recently switching to [employer]. The pt states his Medicaid policy lapsed the end of January and his [employer] policy became effective on 03/22/19. The pt states he "still does not have the policy or group numbers." "[employer] sent his cards in the mail and they should arrive later next week." The pt requested assistance re-establishing home health care. Pt states he was previously open with [facility] for RN services only. The following insurance information was obtained from the pt: [employer] Effective date: 03/22/19 Application ID number: [id number] Confirmation number: [id number] Monthly premium of $147 paid 03/22/19 Pt reports he is a pt at the [facility] and his PCP is Dr. Giselle Aragon. Call placed to [facility] ([facility]) ; spoke with Ade. Per Ade, able to tentatively accept pt; pending insurance verification on Tuesday03/27/19. New referral sent via [employer]. Handwritten prescription obtained for Home Health Care orders (wet to dry dressing changes, [id number], RN services only). Rx scanned into [employer] and manually faxed to [facility] . Start of care arranged for Tuesday03/26/19. Ade states if Maura denies insurance coverage, [facility] will bill Medicaid and/or write off pt's first visit. Left report with insurance information on [facility] [place] [phone]. Updates provided to Darcy Palacios PA-C, Ana, RIMA and pt. Call placed to pt at home to confirm home health services with a start of care for Tuesday. [facility] phone number provided. Pt verbalized understanding. Pt to follow up as directed. CM available for any further issues or concerns. Date Signed: 03/24/2019 02:17 PM Electronically Signed By:Terrie Garcia RN Intervention Information Intervention Type:Health Clinic Date of Service:03/24/2019 12:47 PM Patient Type:Emergency Room Staff Member:RIMA Garcia, Terrie Hours:0.25 Discipline:Tassel Snipper Severity: Comment:Education provided on follow up with [facility] outpt wound clinic and follow up with Dr. Aragon (pt's PCP) at [facility].
== END 2019-03-24 13:05 | disposition home or self-care (01) ==
DX: T81.31XA Disruption of external operation (surgical) wound, not elsewhere classified, initial encounter (principal); Y82.8 Other medical devices associated with adverse incidents; Z89.511 Acquired absence of right leg below knee